=== PATIENT | male | born 1965 | race Caucasian/White ===

== ENCOUNTER 2022-06-30 12:32 | Inpatient (IN) ==
--- NOTE | 2022-06-30 14:58 | Emergency Department Note ---
Lower Extremity Injury HPI General Chief Complaint: Extremity Injury, Lower Stated Complaint: left foot Time Seen by Provider: 06/30/22 14:46 Source: patient Mode of arrival: ambulatory Limitations: no limitations History of Present Illness HPI Narrative: Narrative: 57-year-old male with a history of uncontrolled diabetes, diabetic neuropathy, diabetic foot ulcers presents the ER to be evaluated for possible osteomyelitis. Dr. Canchola has been evaluating for the past week or 2. He had him on doxycycline and Keflex but the patient did not pick it up for a week. He has been taking it for approximately a week since and has not had any significant improvement. It grew out a staph Enterococcus as well as Klebsiella that had significant resistance. It is susceptible to Rocephin. He has been seen by the wound clinic. He is concerned he needs an MRI to rule out osteomyelitis. Patient denies fever, chills, body aches, nausea or vomiting. There is been no weeping from the wound. Related Data Home Medications Medication Instructions Recorded Confirmed glucagon (human recombinant) 1 mg 1 mg IM ONCE 06/29/19 10/29/20 solution for injection torsemide 20 mg tablet 20 mg PO QDAY 08/20/20 10/29/20 albuterol sulfate 90 mcg/actuation 2 puff inhalation TID 09/27/20 10/29/20 aerosol inhaler (Ventolin HFA) allopurinol 100 mg tablet 100 mg PO BID 09/27/20 10/29/20 aspirin 81 mg tablet,delayed 81 mg PO QDAY 09/27/20 10/29/20 release (Adult Aspirin Regimen) canagliflozin 50 mg-metformin 1 tab PO BID 09/27/20 10/29/20 1,000 mg tablet (Invokamet) insulin glargine U-300 conc 300 See Rx Instructions subcut QDAY 09/27/20 10/29/20 unit/mL (3 mL) subcutaneous pen (Toujeo Max U-300 SoloStar) levothyroxine 75 mcg tablet 75 mcg PO QAM 09/27/20 10/29/20 (Euthyrox) atorvastatin 20 mg tablet 20 mg PO QDAY 10/29/20 10/29/20 cholecalciferol (vitamin D3) 25 50 mcg PO QDAY 10/29/20 10/29/20 mcg (1,000 unit) capsule hydralazine 10 mg tablet 10 mg PO BID 10/29/20 10/29/20 Previous Rx's Medication Instructions Recorded gemfibrozil 600 mg tablet 600 mg PO BID #60 tabs 12/26/19 insulin detemir U-100 100 unit/mL 120 unit (1.2 mL) subcut QAM 12/26/19 (3 mL) subcutaneous pen diabetes #15 mL divalproex 500 mg tablet,extended See Rx Instructions .Route 06/10/20 release 24 hr .COMPLEX #60 ea duloxetine 30 mg capsule,delayed See Rx Instructions .Route 06/10/20 release .COMPLEX #60 ea losartan 100 mg tablet See Rx Instructions .Route 07/10/20 .COMPLEX #30 tabs amlodipine 10 mg tablet See Rx Instructions .Route 10/04/20 .COMPLEX #30 tabs fenofibrate 54 mg tablet 54 mg PO QDAY #90 tabs 10/28/20 Humalog KwikPen Insulin 100 See Rx Instructions .Route 11/18/20 unit/mL subcutaneous (insulin .COMPLEX #15 mL lispro) semaglutide 1 mg/dose (2 mg/1.5 1 mg (0.75 mL) subcut QWEEK #1.5 mL 02/17/21 mL) subcutaneous pen injector (Ozempic) clindamycin HCl 150 mg capsule 450 mg PO TID #90 caps 06/13/21 Allergies Allergy/AdvReac Type Severity Reaction Status Date / Time lisinopril Allergy Unknown DEVIN Cough Verified 10/29/20 15:04 Review of Systems ROS ROS Narrative: Narrative: All systems ED: reviewed and negative except as stated. [facility] Narrative Patient History Narrative: Narrative: Medical/Surgical/Family History All Active Problems (Updated 06/30/22 @ 17:54 by Jg Lujan PA-C) Cellulitis and abscess of foot (Acute) Fasciitis (Acute) Diabetic foot ulcer (Acute) Chronic renal insufficiency (Chronic) Obstructive sleep apnea (Chronic) GERD (gastroesophageal reflux disease) (Acute) Charcot foot due to diabetes mellitus (Chronic) CKD stage 3 due to type 2 diabetes mellitus (Acute) History of fracture of left ankle (Chronic ~04/2019) History of knee surgery (Chronic) Heart murmur (Chronic) Seizures (Chronic) Headache (Chronic) Arthritis (Chronic) Erectile dysfunction (Chronic) Hypothyroidism (Chronic) Acute chest pain (Chronic) Situational depression (Chronic) Encounter for long-term (current) use of insulin (Chronic) Severe obstructive sleep apnea (Chronic) Cough (Chronic) Type 2 diabetes mellitus treated with insulin (Chronic) Vasovagal syncope (Chronic) Other fracture of left lower leg, initial encounter for closed fracture (Chronic) Microalbuminuria (Chronic) Knee effusion, right (Acute) Ori-Schlatter's disease of right lower extremity (Acute) Acute internal derangement of knee (Acute) Ankle fracture, left (Acute) Hypertensive renal disease (Chronic) Chronic kidney disease, stage II (mild) (Chronic) Proteinuria (Chronic) No pertinent past surgical history (Acute) URI (upper respiratory infection) (Chronic) Depression (Chronic) Epilepsy (Chronic) Enlarged kidney (Chronic) Hyperlipidemia (Chronic 12/06/14) Seizure disorder (Chronic 12/06/14) Gout (Chronic 12/06/14) Diabetes mellitus (Chronic 12/06/14) Hypertension (Chronic 12/06/14) Medical History Acute chest pain Acute internal derangement of knee Arthritis Charcot foot due to diabetes mellitus Dr Malik managing Chronic kidney disease, stage II (mild) most recent s.creat is 1.38 which equals to egfr of 58ml/min per MDRD equation a little worse this visit He has significant proteinuria His renal US shows enlarged kidneys work up negative as above His renal disease is likely sec to DM type 2(this is uncontrolled with sec complications and diabetic kidney disease can cause enlarged kidneys) labs discussed discused imp of optimal HTN and DM type 2 control to prevent declining renal function discussed low sodium diet and diabetic diet avoid frequent use of NSAIDS ct losartan for antiproteinuric and renal protective effect Chronic renal insufficiency CKD stage 3 due to type [address] Santana managing Cough Depression Diabetes mellitus (12/06/14) dietary and lifestyle interventions discussed Encounter for long-term (current) use of insulin Enlarged kidney Epilepsy Erectile dysfunction Gout (12/06/14) Headache Heart murmur Hyperlipidemia (12/06/14) Hypertension (12/06/14) Hypertensive renal disease BP at home ct current medications follow low sodium diet keep a BP log goal BP is less than 140/90 per recent ADA guidelines work on weight loss Hypothyroidism Knee effusion, right Microalbuminuria Obstructive sleep apnea Enders-Schlatter's disease of right lower extremity Other fracture of left lower leg, initial encounter for closed fracture Seizure disorder (12/06/14) Seizures Severe obstructive sleep apnea Situational depression Type 2 diabetes mellitus treated with insulin URI (upper respiratory infection) Vasovagal syncope Surgical History History of fracture of left ankle (~04/2019) [address] Blankenship History of knee surgery torn ACL 15 years ago No pertinent past surgical history Family History Mother Diabetes mellitus Father Liver cancer Prostate cancer Thyroid disorder Grandfather HTN (hypertension) Maternal Stroke Maternal Heart disease maternal Cancer Paternal Social History Alcohol Intake Frequency: holiday/special occasion only Substance Use: does not use and other (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 Sclerae non icteric HENMT: Normocephalic Atraumatic head, external nose and ears. Moist MM. CVS: +S1/S2, No murmurs or gallops. Radial pulses 2+ and equal bilat. No s welling RESP: Unlabored respiratory effort . Clear to auscultation bilaterally (CTAB). No noted wheezes rales or ronchi. MSK: Patient has a diabetic foot ulcer on the lateral aspect of the sole of his left foot approximately three quarters of a centimeter in diameter, he has multiple lesions across his toes. He has significant swelling. The foot ulcer is eroded significantly into the soft tissue there is no exposed bone at this time but is heading that way. Patient is good cap refill and DP and PT are 2+. Patient has poor sensation due to the neuropathy. Patient's exam is consistent with cellulitis, diabetic foot ulcer with concern for osteomyelitis. Skin: Warm, Dry . Swelling of the lower extremities. Cap refill less than 2. Psych: Awake, Alert, & Oriented (AAO) x3. Appropriate mood and affect . I see no General Limitations: no limitations Course Vital Signs Vital signs: Vital Signs Temperature 97.7 F 06/30/22 12:33 Pulse Rate 98 H 06/30/22 12:33 Respiratory Rate 18 06/30/22 12:33 Blood Pressure 156/83 06/30/22 12:33 Pulse Oximetry (%) 98 06/30/22 12:33 Oxygen Delivery Method 06/30/22 12:33 Temperature 97.7 F 06/30/22 12:33 Pulse Rate 98 H 06/30/22 12:33 Respiratory Rate 18 06/30/22 12:33 Blood Pressure 156/83 06/30/22 12:33 Pulse Oximetry (%) 98 06/30/22 12:33 Oxygen Delivery Method 06/30/22 12:33 MDM MDM Narrative Medical decision making narrative: Narrative: Patient has concern for osteomyelitis. He has diabetic foot ulcer, poorly controlled diabetes. He will be evaluated with a CBC, CMP, ESR, CRP and a CG 4. An MRI with contrast will be ordered of his foot. CBC: Unremarkable CMP: Glucose 341 creatinine of 1.4 otherwise unremarkable ESR: 19 Normal CRP: normal CG 4: Lactate normal, unremarkable MRI:IMPRESSION: No evidence of acute osteomyelitis. Cortical and trabecular sclerosis the fifth metatarsal base corresponding with sclerosis seen on plain film which likely indicate an old fracture or old healed osteomyelitis. Diffuse fasciitis and cellulitis. Two ganglion cysts in the dorsal soft tissues overlying the lateral cuneiform: 16 mm and 7 mm respectively. Interpreted and Authenticated by: David Luna 06/30/22 Patient had concerning history for osteomyelitis. Dr De La Garza sent the patient here for further evaluation. He has diabetic foot ulcer has grown out Klebsiella oxytoca, Enterococcus faecalis and Staph aureus. The Klebsiella is susceptible to ceftriaxone. Patient has been on Keflex and doxycycline. He has not been improving with outpatient therapy. Dr. De La Garza was concerned for patient declining. Patient does have normal ESR and CRP. MRI does show no evidence of osteomyelitis however there is diffuse fasciitis and cellulitis that is failed outpatient therapy. Patient will be given a dose of Rocephin at this time. Dr Baldwin hospitalist will be consulted for admission. Dr Baldwin: wants to touch base with wound healing. If they have no concerns consulting on he is gladly willing to accept Dr. Grossman was glad to consult on with the patient and evaluated the patient the emergency room he spoke with Dr Baldwin regarding this. Lab Data Result diagrams: 06/30/22 14:59 06/30/22 14:59 Labs: Lab Results 06/30/22 06/30/22 06/30/22 Range/Units 14:59 14:59 15:10 WBC 7.9 (4.5-11.0) K/mcL RBC 4.53 L (4.63-6.08) M/mcL Hgb 13.2 L (13.7-17.5) g/dL Hct 38.5 L (40.1-51.0) % MCV 85.0 (80.0-100.0) fL MCH 29.1 (26.0-34.0) pg MCHC 34.3 (31.0-36.0) g/dL RDW 12.8 (11.5-14.5) % Plt Count 251 (140-440) K/mcL MPV 10.3 (7.4-10.4) fL Immature Gran % (Auto) 3.8 H (0.0-0.5) % Neut % (Auto) 56.6 (38.0-78.0) % Lymph % (Auto) 27.8 (15.5-49.0) % [place] % (Auto) 9.0 (1.0-12.0) % Eos % (Auto) 2.3 (0.0-7.0) % Baso % (Auto) 0.5 (0.0-2.0) % Lymph # (Auto) 2.20 (1.50-4.80) K/mcL [place] # (Auto) 0.71 (0.10-0.90) K/mcL Eos # (Auto) 0.18 (0.00-0.70) K/mcL Baso # (Auto) 0.04 (0.00-0.30) K/mcL Immature Gran # 0.30 H (0.00-0.05) K/mcl Absolute Neutrophils 4.47 (1.80-8.00) K/mcL ESR 19 (0-20) mm/hr POC VBG pH 7.44 H (7.32-7.42) POC VBG pCO2 at Temp 44.3 (41-51) POC VBG pO2 31 (25-40) POC VBG HCO3 30.2 H (24-28) POC VBG Total CO2 32.0 H (25-29) POC Venous O2 Sat 61.0 (40-70) POC VBG Base Excess 6.0 H* (-2-2) VBG Lactic Acid 1.5 (0.5-2) Sodium 136 (133-145) mmol/L Potassium 4.1 (3.3-5.1) mmol/L Chloride 98 (96-108) mmol/L Carbon Dioxide 28 (22-30) mmol/L Anion Gap 10.0 (8.0-16.0) BUN 18 (6-20) mg/dL Creatinine 1.4 H (0.7-1.2) mg/dL GFR Calculation 56 Glucose 341 H (70-105) mg/dL Calcium 8.8 (8.6-10.4) mg/dL Total Bilirubin 0.3 (0.1-1.0) mg/dL AST 38 (<40) U/L ALT 33 (<40) U/L Alkaline Phosphatase 91 (39-117) U/L C-Reactive Protein 0.40 (0.03-0.80) mg/dL Total Protein 5.4 L (5.9-8.4) gm/dL Albumin 3.0 L (3.2-5.2) gm/dL Globulin 2.4 (2.2-3.7) gm/dL Albumin/Globulin Ratio 1.3 (1.0-2.3) Discharge Plan Patient/Caregiver Discharge Instructions Pt seen by MARRIAGE AND FAMILY SOCIAL WORKER/PA only: Yes Clinical Impression: Fasciitis, Diabetic foot ulcer Patient Disposition: Xfer As Inpt ([facility]) Follow up with: Andrés De La Garza MD [Primary Care Provider] - Prescriptions: No Action gemfibrozil 600 mg tablet 600 mg PO BID Qty: 60 2RF insulin detemir U-100 100 unit/mL (3 mL) insulin pen 120 unit SUB-Q QAM Qty: 15 6RF divalproex 500 mg tablet extended release 24 hr See Rx Instructions .ROUTE .COMPLEX Qty: 60 3RF Dose Instruction: Take 1 tablet by mouth twice daily Rx Instructions: Take 1 tablet by mouth twice daily duloxetine 30 mg capsule,delayed release(DR/EC) See Rx Instructions .ROUTE .COMPLEX Qty: 60 3RF Dose Instruction: Take 2 capsules by mouth once daily Rx Instructions: Take 2 capsules by mouth once daily losartan 100 mg tablet See Rx Instructions .ROUTE .COMPLEX Qty: 30 3RF Dose Instruction: Take 1 tablet by mouth once daily Rx Instructions: Take 1 tablet by mouth once daily amlodipine 10 mg tablet See Rx Instructions .ROUTE .COMPLEX Qty: 30 3RF Dose Instruction: Take 1 tablet by mouth once daily Rx Instructions: Take 1 tablet by mouth once daily fenofibrate 54 mg tablet 54 mg PO QDAY Qty: 90 1RF insulin lispro [Humalog KwikPen Insulin] 100 unit/mL insulin pen See Rx Instructions .ROUTE .COMPLEX Qty: 15 3RF Dose Instruction: INJECT 30 UNITS SUBCUTANEOUSLY THREE TIMES DAILY FOR DIABETES Rx Instructions: INJECT 30 UNITS SUBCUTANEOUSLY THREE TIMES DAILY FOR DIABETES semaglutide 1 mg/dose (2 mg/1.5 mL) subcutaneous pen injector 1 mg/dose (2 mg/1.5 mL) pen injector 1 mg SUB-Q QWEEK Qty: 1.5 3RF torsemide 20 mg tablet 20 mg PO QDAY glucagon (human recombinant) 1 mg recon soln 1 mg IM ONCE allopurinol 100 mg tablet 100 mg PO BID aspirin [Adult Aspirin Regimen] 81 mg tablet,delayed release (DR/EC) 81 mg PO QDAY levothyroxine [Euthyrox] 75 mcg tablet 75 mcg PO QAM Invokamet 50-1,000 mg tablet 1 tab PO BID Toujeo Max U-300 SoloStar 300 unit/mL (3 mL) insulin pen See Rx Instructions SUB-Q QDAY Rx Instructions: 120 units subcut daily; albuterol sulfate [Ventolin HFA] 90 mcg/actuation HFA aerosol inhaler 2 puff INHALATION TID cholecalciferol (vitamin D3) 25 mcg (1,000 unit) capsule 50 mcg PO QDAY atorvastatin 20 mg tablet 20 mg PO QDAY hydralazine 10 mg tablet 10 mg PO BID clindamycin HCl 150 mg capsule 450 mg PO TID Qty: 90 0RF
[2022-06-30 15:50] LABS: Basophils # (Auto) 0.04 K/mcL (0.00-0.30); Basophils % (Auto) 0.5 % (0.0-2.0); Eosinophils # (Auto) 0.18 K/mcL (0.00-0.70); Eosinophils % (Auto) 2.3 % (0.0-7.0); Hematocrit 38.5 % (40.1-51.0); Hemoglobin 13.2 g/dL (13.7-17.5); Lymphocytes % (Auto) 27.8 % (15.5-49.0); Mean Corpuscular HGB Conc 34.3 g/dL (31.0-36.0); Mean Platelet Volume 10.3 fL (7.4-10.4); Monocytes # (Auto) 0.71 K/mcL (0.10-0.90); Neutrophils % (Auto) 56.6 % (38.0-78.0); Platelet Count 251 K/mcL (140-440); RBC 4.53 M/mcL (4.63-6.08); Red Cell Distribution Width 12.8 % (11.5-14.5); WBC 7.9 K/mcL (4.5-11.0)
[2022-06-30 16:00] LABS: Erythrocyte Sedimentation Rate 19 mm/hr (0-20)
[2022-06-30 16:19] LABS: ALT/SGPT 33 U/L (<40); AST/SGOT 38 U/L (<40); Albumin/Globulin Ratio 1.3 (1.0-2.3); Alkaline Phosphatase 91 U/L (39-117); Bilirubin,Total 0.3 mg/dL (0.1-1.0); Blood Urea Nitrogen 18 mg/dL (6-20); Calcium 8.8 mg/dL (8.6-10.4); Carbon Dioxide 28 mmol/L (22-30); Chloride 98 mmol/L (96-108); Globulin 2.4 gm/dL (2.2-3.7); Glomerular Filtration Rate 56; Glucose 341 mg/dL (70-105)
--- NOTE | 2022-06-30 16:47 | Magnetic Resonance Report ---
CLINICAL INFORMATION: Diabetic foot ulcer base of the fifth metatarsal. Evaluate for osteomyelitis COMPARISON: Plain film 06/16/2022 TECHNIQUE: Coronal proton density, axial T1 and T2 proton density sagittal T1 proton density images were acquired. FINDINGS: Plain films show cortical thickening and vague increased density in the intramedullary bone within the proximal fifth metatarsal diaphysis. MRI, there is low signal sclerosis in this region but no acute intramedullary inflammation. Suspect this may represent old united fracture or old healed osteomyelitis. There is no evidence of an intramedullary marrow signal increase throughout the foot that would suggest osteomyelitis. Two cystic lesions 15 and 7 mm seen in the dorsal soft tissues overlying the lateral cuneiform. These likely represent ganglion cysts. Moderate diffuse soft tissue swelling and increased signal in the subcutaneous fat and fascial likely indicate cellulitis and fasciitis. Moderate pes planus noted. Surgical hardware from ankle fusion largely obscures ankle mortise and surrounding soft tissues. Increased signal in the talocalcaneal joint which could indicate inflammation. Tendons and ligaments appear unremarkable. IMPRESSION: No evidence of acute osteomyelitis. Cortical and trabecular sclerosis the fifth metatarsal base corresponding with sclerosis seen on plain film which likely indicate an old fracture or old healed osteomyelitis. Diffuse fasciitis and cellulitis. Two ganglion cysts in the dorsal soft tissues overlying the lateral cuneiform: 16 mm and 7 mm respectively. Interpreted and Authenticated by: David Luna 06/30/22
[2022-06-30] MEDS ORDERED: cefTRIAXone 1 GM VIAL IV ONE (17:09)
--- NOTE | 2022-06-30 18:06 | Internal Med History&Physical ---
HPI History of Present Illness Patient information: Note initiated : 06/30/22 at 6:00 pm Service Date, if different from initiated Date: [] Patient: Jose Alfredo Hernández 57 y/o M admitted on for left foot. Chief Complaint: [] History of present illness: Mr. Hernández is a 57 year old M Presents to the ED by his primary care doctor Dr. De La Garza. Patient has wound to the outside of his left foot. He says that showed up several weeks ago. Has been on antibiotics but has not improved. He was seen by Dr. Rodriguez a week ago. And he saw Dr. De La Garza today who sent him into the ED worried about needing surgical debridement or possibly osteo-. Work-up in the ED did not show any osteo on the MRI but did show diffuse cellulitis and fasciitis. Dr. Rodriguez was contacted to evaluate the patient morning. Patient has mild tachycardia in the 90s but vitals are otherwise normal. Patient denies fever chills. Per ER provider the patient's wound cultures have grown staph Enterococcus and Klebsiella with some resistance, I do not have those reports this time. Blood sugars were elevated on admission at 341 Review of Systems: Pertinent positives as above. Denies headache/fever/chills/nausea/vomiting/chest or abdominal pain/cough/dyspnea/diarrhea. Remaining 10 point review of system reviewed negative PFSH PFSH All Active Problems (Updated 06/30/22 @ 17:54 by Jg Lujan PA-C) Cellulitis and abscess of foot (Acute) Fasciitis (Acute) Diabetic foot ulcer (Acute) Chronic renal insufficiency (Chronic) Obstructive sleep apnea (Chronic) GERD (gastroesophageal reflux disease) (Acute) Charcot foot due to diabetes mellitus (Chronic) CKD stage 3 due to type 2 diabetes mellitus (Acute) History of fracture of left ankle (Chronic ~04/2019) History of knee surgery (Chronic) Heart murmur (Chronic) Seizures (Chronic) Headache (Chronic) Arthritis (Chronic) Erectile dysfunction (Chronic) Hypothyroidism (Chronic) Acute chest pain (Chronic) Situational depression (Chronic) Encounter for long-term (current) use of insulin (Chronic) Severe obstructive sleep apnea (Chronic) Cough (Chronic) Type 2 diabetes mellitus treated with insulin (Chronic) Vasovagal syncope (Chronic) Other fracture of left lower leg, initial encounter for closed fracture (Chronic) Microalbuminuria (Chronic) Knee effusion, right (Acute) [place]-Schlatter's disease of right lower extremity (Acute) Acute internal derangement of knee (Acute) Ankle fracture, left (Acute) Hypertensive renal disease (Chronic) Chronic kidney disease, stage II (mild) (Chronic) Proteinuria (Chronic) No pertinent past surgical history (Acute) URI (upper respiratory infection) (Chronic) Depression (Chronic) Epilepsy (Chronic) Enlarged kidney (Chronic) Hyperlipidemia (Chronic 12/06/14) Seizure disorder (Chronic 12/06/14) Gout (Chronic 12/06/14) Diabetes mellitus (Chronic 12/06/14) Hypertension (Chronic 12/06/14) Medical History Acute chest pain Acute internal derangement of knee Arthritis Charcot foot due to diabetes mellitus Dr Malik managing Chronic kidney disease, stage II (mild) most recent s.creat is 1.38 which equals to egfr of 58ml/min per MDRD equation a little worse this visit He has significant proteinuria His renal US shows enlarged kidneys work up negative as above His renal disease is likely sec to DM type 2(this is uncontrolled with sec complications and diabetic kidney disease can cause enlarged kidneys) labs discussed discused imp of optimal HTN and DM type 2 control to prevent declining renal function discussed low sodium diet and diabetic diet avoid frequent use of NSAIDS ct losartan for antiproteinuric and renal protective effect Chronic renal insufficiency CKD stage 3 due to type [address] Santana managing Cough Depression Diabetes mellitus (12/06/14) dietary and lifestyle interventions discussed Encounter for long-term (current) use of insulin Enlarged kidney Epilepsy Erectile dysfunction Gout (12/06/14) Headache Heart murmur Hyperlipidemia (12/06/14) Hypertension (12/06/14) Hypertensive renal disease BP at home ct current medications follow low sodium diet keep a BP log goal BP is less than 140/90 per recent ADA guidelines work on weight loss Hypothyroidism Knee effusion, right Microalbuminuria Obstructive sleep apnea Ori-Schlatter's disease of right lower extremity Other fracture of left lower leg, initial encounter for closed fracture Seizure disorder (12/06/14) Seizures Severe obstructive sleep apnea Situational depression Type 2 diabetes mellitus treated with insulin URI (upper respiratory infection) Vasovagal syncope Surgical History History of fracture of left ankle (~04/2019) [address] Blankenship History of knee surgery torn ACL 15 years ago No pertinent past surgical history Family History Mother Diabetes mellitus Father Liver cancer Prostate cancer Thyroid disorder Grandfather HTN (hypertension) Maternal Stroke Maternal Heart disease maternal Cancer Paternal Social History household members: alone lives independently: Yes marital status: single occupational status: employed occupation: [employer] leisure activities: hunting, fishing and other physical activity: none alcohol intake frequency: holiday/special occasion only substance use type: does not use 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.) MEDS/ALLERGIES Home Medications and Allergies Home Medications Medication Instructions Recorded Confirmed Type glucagon (human recombinant) 1 mg 1 mg IM ONCE 06/29/19 10/29/20 History solution for injection gemfibrozil 600 mg tablet 600 mg PO BID #60 tabs 12/26/19 10/29/20 Rx insulin detemir U-100 100 unit/mL 120 unit (1.2 mL) subcut QAM 12/26/19 10/29/20 Rx (3 mL) subcutaneous pen diabetes #15 mL divalproex 500 mg tablet,extended See Rx Instructions .Route 06/10/20 10/29/20 Rx release 24 hr .COMPLEX #60 ea duloxetine 30 mg capsule,delayed See Rx Instructions .Route 06/10/20 10/29/20 Rx release .COMPLEX #60 ea losartan 100 mg tablet See Rx Instructions .Route 07/10/20 10/29/20 Rx .COMPLEX #30 tabs torsemide 20 mg tablet 20 mg PO QDAY 08/20/20 10/29/20 History albuterol sulfate 90 mcg/actuation 2 puff inhalation TID 09/27/20 10/29/20 History aerosol inhaler (Ventolin HFA) allopurinol 100 mg tablet 100 mg PO BID 09/27/20 10/29/20 History aspirin 81 mg tablet,delayed 81 mg PO QDAY 09/27/20 10/29/20 History release (Adult Aspirin Regimen) canagliflozin 50 mg-metformin 1 tab PO BID 09/27/20 10/29/20 History 1,000 mg tablet (Invokamet) insulin glargine U-300 conc 300 See Rx Instructions subcut QDAY 09/27/20 10/29/20 History unit/mL (3 mL) subcutaneous pen (Toujeo Max U-300 SoloStar) levothyroxine 75 mcg tablet 75 mcg PO QAM 09/27/20 10/29/20 History (Euthyrox) amlodipine 10 mg tablet See Rx Instructions .Route 10/04/20 10/29/20 Rx .COMPLEX #30 tabs fenofibrate 54 mg tablet 54 mg PO QDAY #90 tabs 10/28/20 10/29/20 Rx atorvastatin 20 mg tablet 20 mg PO QDAY 10/29/20 10/29/20 History cholecalciferol (vitamin D3) 25 50 mcg PO QDAY 10/29/20 10/29/20 History mcg (1,000 unit) capsule hydralazine 10 mg tablet 10 mg PO BID 10/29/20 10/29/20 History Humalog KwikPen Insulin 100 See Rx Instructions .Route 11/18/20 Rx unit/mL subcutaneous (insulin .COMPLEX #15 mL lispro) semaglutide 1 mg/dose (2 mg/1.5 1 mg (0.75 mL) subcut QWEEK #1.5 mL 02/17/21 Rx mL) subcutaneous pen injector (Ozempic) clindamycin HCl 150 mg capsule 450 mg PO TID #90 caps 06/13/21 Rx Allergies Allergy/AdvReac Type Severity Reaction Status Date / Time lisinopril Allergy Unknown DEVIN Cough Verified 10/29/20 15:04 EXAM Constitutional Vitals: Temp Pulse Resp BP Pulse Ox O2 Del Method 97.7 F 98 H 18 156/83 98 06/30/22 12:33 06/30/22 12:33 06/30/22 12:33 06/30/22 12:33 06/30/22 12:33 06/30/22 12:33 Exam: General: Alert, Awake, No acute Distress, obese Eyes/N/T: EOMI, PERRL, Head/Neck: neck supple, normocephalic atraumatic CV: RRR, No murmurs, normal s1/s2 Pulm: Clear b/l, no wheezing/rhonchi/rales Abd: soft, nontender, +BS x4 Ext: no clubbing/cyanosis, 2-3+ b/l LE edema. Left foot lateral aspect with ulcer with overlying callus with surrounding erythema tenderness and edema. Neuro: Alert, no focal deficits, moves all extremities, CN 2-12 grossly intact, symmetrical strength b/l upper/lower, sensations intact b/l upper/lower Skin: warm/dry DATA Data Completed and Pending Labs: Labs from last 24 hours 06/30/22 06/30/22 06/30/22 15:10 14:59 14:59 WBC 7.9 RBC 4.53 L Hgb 13.2 L Hct 38.5 L MCV 85.0 MCH 29.1 MCHC 34.3 RDW 12.8 Plt Count 251 MPV 10.3 Immature Gran % (Auto) 3.8 H Neut % (Auto) 56.6 Lymph % (Auto) 27.8 Taylor % (Auto) 9.0 Eos % (Auto) 2.3 Baso % (Auto) 0.5 Lymph # (Auto) 2.20 Taylor # (Auto) 0.71 Eos # (Auto) 0.18 Baso # (Auto) 0.04 Immature Gran # 0.30 H Absolute Neutrophils 4.47 ESR 19 POC VBG pH 7.44 H POC VBG pCO2 at Temp 44.3 POC VBG pO2 31 POC VBG HCO3 30.2 H POC VBG Total CO2 32.0 H POC Venous O2 Sat 61.0 POC VBG Base Excess 6.0 H* VBG Lactic Acid 1.5 Sodium 136 Potassium 4.1 Chloride 98 Carbon Dioxide 28 Anion Gap 10.0 BUN 18 Creatinine 1.4 H GFR Calculation 56 Glucose 341 H Calcium 8.8 Total Bilirubin 0.3 AST 38 ALT 33 Alkaline Phosphatase 91 C-Reactive Protein 0.40 Total Protein 5.4 L Albumin 3.0 L Globulin 2.4 Albumin/Globulin Ratio 1.3 A/P Narrative A/P Narrative: A: *Left foot cellulitis: *DM w/ neuropathy and Charcot foot & hyperglycemia: *HTN: *BARRY: *Obesity: BMI 36 *Hypothyroidism: *CKD III: *? seizure disorder: Is on valproic acid but says another doctor recently told him he does not think he had seizures. *Depression: * P: -IV abx, MRSA screen -Wound culture records -Dr. Rodriguez consulted -Basal and SSI -A1c -Continue home ccb/arb -pt/ot -Home medication reconciliation -ppx: heparin Time Spent With Patient Time: Total time spent is greater than 50% in coordination of care (as documented) at patient's floor/unit and/or counseling patient:
[2022-06-30] MEDS ORDERED: MAGNESIUM SULFATE 2 GM/50 ML BAG IV PRN (19:30)
[2022-06-30] MEDS ORDERED: DEXTROSE 50% 50 ML VIAL IV PRN (19:30)
[2022-06-30] MEDS ORDERED: POLYETHYLENE GLYCOL 3350 17 GM PACKET PO PRN (19:30)
[2022-06-30] MEDS ORDERED: IPRATROPIUM/ALBUTEROL 3 ML AMPUL.NEB NEB PRN (19:30)
[2022-06-30] MEDS ORDERED: POTASSIUM CHLORIDE 20 MEQ TABLET PO PRN ×2 (19:30)
[2022-06-30] MEDS ORDERED: SENNOSIDES 1 TABLET PO PRN (19:30)
[2022-06-30] MEDS ORDERED: DEXTROSE 31 GM ORAL.SUSP PO PRN (19:30)
[2022-06-30] MEDS ORDERED: HYDROcodone/APAP 5/325MG TABLET PO PRN (19:30)
[2022-06-30] MEDS ORDERED: cefTRIAXone 2 GM in DEXTROSE 5% IN WATER 50 ML IV SCH (19:30)
[2022-06-30] MEDS ORDERED: POTASSIUM CHLORIDE 40 MEQ in DEXTROSE 5% IN WATER 500 ML IV PRN (19:30)
[2022-06-30] MEDS ORDERED: ONDANSETRON 4 MG/2 ML VIAL IV PRN (19:30)
[2022-06-30] MEDS ORDERED: ACETAMINOPHEN 325 MG TABLET PO PRN (19:30)
[2022-06-30] MEDS: hydrALAZINE 20 MG/ML VIAL IV PRN (20:01)
[2022-06-30] MEDS ORDERED: cefTRIAXone 1 GM VIAL ONE (20:06)
[2022-06-30] MEDS ORDERED: hydrALAZINE 20 MG/ML VIAL ONE (20:06)
[2022-06-30] MEDS: 0.9 % SODIUM CHLORIDE 10 ML SYRINGE IV SCH (20:13)
[2022-06-30] MEDS: INSULIN LISPRO 1 UNIT/0.01 ML UNIT SQ SCH (20:20)
[2022-06-30] MEDS ORDERED: INSULIN LISPRO 1 UNIT/0.01 ML UNIT SQ ONE (20:28)
[2022-06-30] MEDS: LABETALOL 5 MG/ML ML IV PRN (21:17)
[2022-06-30] MEDS: HEPARIN 5,000 UNIT/ML VIAL SQ SCH (22:49)
[2022-06-30 23:19] LABS: Hemoglobin A1C 13.2 % Hgb (4.0-6.0)
[2022-07-01] MEDS: LABETALOL 5 MG/ML ML IV PRN ×2 (04:12→07:50)
[2022-07-01] MEDS: 0.9 % SODIUM CHLORIDE 10 ML SYRINGE IV SCH ×3 (06:02→21:24)
[2022-07-01 06:17] LABS: Basophils # (Auto) 0.05 K/mcL (0.00-0.30); Basophils % (Auto) 0.6 % (0.0-2.0); Eosinophils # (Auto) 0.19 K/mcL (0.00-0.70); Eosinophils % (Auto) 2.5 % (0.0-7.0); Hemoglobin 13.2 g/dL (13.7-17.5); Lymphocytes # (Auto) 2.55 K/mcL (1.50-4.80); Lymphocytes % (Auto) 33.1 % (15.5-49.0); Mean Cell Volume 86.6 fL (80.0-100.0); Mean Platelet Volume 10.1 fL (7.4-10.4); Monocytes # (Auto) 0.72 K/mcL (0.10-0.90); Monocytes % (Auto) 9.3 % (1.0-12.0); Neutrophils % (Auto) 51.5 % (38.0-78.0); Platelet Count 244 K/mcL (140-440); RBC 4.62 M/mcL (4.63-6.08); Red Cell Distribution Width 12.9 % (11.5-14.5); WBC 7.7 K/mcL (4.5-11.0)
[2022-07-01] MEDS: INSULIN LISPRO 1 UNIT/0.01 ML UNIT SQ SCH ×4 (07:06→21:21)
[2022-07-01 07:17] LABS: ALT/SGPT 27 U/L (<40); AST/SGOT 25 U/L (<40); Albumin 2.7 gm/dL (3.2-5.2); Albumin/Globulin Ratio 0.9 (1.0-2.3); Alkaline Phosphatase 94 U/L (39-117); Bilirubin,Direct < 0.2 mg/dL (0-0.3); Bilirubin,Total 0.2 mg/dL (0.1-1.0); Blood Urea Nitrogen 15 mg/dL (6-20); Calcium 8.7 mg/dL (8.6-10.4); Carbon Dioxide 22 mmol/L (22-30); Chloride 99 mmol/L (96-108); Globulin 2.9 gm/dL (2.2-3.7); Glomerular Filtration Rate 61; Glucose 278 mg/dL (70-105); Lactate Dehydrogenase 257 U/L (135-225); Phosphorous 4.3 mg/dL (2.5-4.5); Triglycerides 472 mg/dL (<150); Uric Acid 6.1 mg/dL (2.5-8.0)
--- NOTE | 2022-07-01 07:48 | Internal Med Progress Note ---
SUBJECTIVE Subjective Patient information: Note initiated : 07/01/22 at 7:47 am Service Date, if different from initiated Date: [] Patient: Jose Alfredo Hernández 57 y/o M admitted on 06/30/22 for left foot. Chief Complaint: [] Interval history: History of present illness: Mr. Hernández is a 57 year old M Presents to the ED by his primary care doctor Dr. De La Garza. Patient has wound to the outside of his left foot. He says that showed up several weeks ago. Has been on antibiotics but has not improved. He was seen by Dr. Rodriguez a week ago. And he saw Dr. De La Garza today who sent him into the ED worried about needing surgical debridement or possibly osteo-. Work-up in the ED did not show any osteo on the MRI but did show diffuse cellulitis and fasciitis. Dr. Rodriguez was contacted to evaluate the patient morning. Patient has mild tachycardia in the 90s but vitals are otherwise normal. Patient denies fever chills. Per ER provider the patient's wound cultures have grown staph Enterococcus and Klebsiella with some resistance, I do not have those reports this time. Blood sugars were elevated on admission at 341 07/01 No overnight event or new complaints. Patient states that he sees an weight and test [facility] [place] [facility] who has him on Novolin 70/30 at 90 units [address] Rodriguez evaluation. Awaiting wound culture results from outpatient. Patient complains of edema in his arms and legs. Review of Systems: denies headache/fever/chills/nausea/vomiting/chest or abdominal pain/cough/dyspnea/diarrhea. Otherwise see above. Constitutional Vitals: Vital Signs Temp Pulse Resp BP Pulse Ox O2 Del Method 98.3 F 78 14 167/88 94 07/01/22 04:01 07/01/22 04:01 07/01/22 04:01 07/01/22 04:01 07/01/22 04:01 07/01/22 04:01 Period Temp Pulse Resp BP Sys/Medina Pulse Ox O2 Del Method O2 Flow Rate Last 24 Hr 97.7 F-98.6 F 66-98 14-18 154-185/83-102 94-98 Room Air-Room Air Intake and Output 06/30/22 07/01/22 07/01/22 21:59 05:59 13:59 Intake Total 1505 Output Total 1075 300 Balance 430 -300 Weight 137.937 kg Intake & Output: Intake & Output 06/30/22 07/01/22 07/01/22 21:59 05:59 13:59 Intake Total 1505 Output Total 1075 300 Balance 430 -300 Weight 137.937 kg Intake: Oral 1505 Output: Void Amount 1075 300 Other: Meal sandwich Percent of Meal Consumed 100% Feeding Ability Independent Urine Appearance Clear Urine Color Yellow Exam: General: Alert, Awake, No acute Distress, obese Eyes/N/T: EOMI Head/Neck: neck supple, CV: RRR, 2/6 SM Pulm: Clear b/l, no wheezing/rhonchi/rales Abd: soft, nontender, +BS x4 Ext: no clubbing/cyanosis, 2-3+ b/l LE edema. Left foot lateral aspect with ulcer with overlying callus with surrounding erythema tenderness and edema. Neuro: Alert, no focal deficits, moves all extremities, Skin: warm/dry OBJ DATA Labs CBC & Chem 7: 07/01/22 05:21 07/01/22 05:21 Labs: Abnormal Lab Results 07/01/22 07/01/22 06/30/22 05:21 05:21 15:10 RBC 4.62 L Hgb 13.2 L Hct 40.0 L Immature Gran % (Auto) 3.0 H Immature Gran # 0.23 H POC VBG pH 7.44 H POC VBG HCO3 30.2 H POC VBG Total CO2 32.0 H POC VBG Base Excess 6.0 H* Creatinine 1.3 H Glucose 278 H Hemoglobin A1c Lactate Dehydrogenase 257 H Total Protein 5.6 L Albumin 2.7 L Albumin/Globulin Ratio 0.9 L Triglycerides 472 H 06/30/22 06/30/22 06/30/22 14:59 14:59 14:59 RBC 4.53 L Hgb 13.2 L Hct 38.5 L Immature Gran % (Auto) 3.8 H Immature Gran # 0.30 H POC VBG pH POC VBG HCO3 POC VBG Total CO2 POC VBG Base Excess Creatinine 1.4 H Glucose 341 H Hemoglobin A1c 13.2 H Lactate Dehydrogenase Total Protein 5.4 L Albumin 3.0 L Albumin/Globulin Ratio Triglycerides Meds: Medications Acetaminophen (Acetaminophen 325 Mg Tablet) 650 mg PO Q6HP PRN; Protocol PRN Reason: Per Pain Protocol/Fever > 101 Hydrocodone Bitart/Acetaminophen (Hydrocodone/Apap 5/325mg Tablet) 1 tab PO Q4HP PRN PRN Reason: PAIN LEVEL 3-6 Albuterol/Ipratropium (Ipratropium/Albuterol 3 Ml Ampul.Neb) 3 ml NEB Q4HP PRN PRN Reason: Shortness Of Breath Dextrose (Dextrose 50% 50 Ml Vial) 0 ml IV UD PRN PRN Reason: Per Sliding Scale Diagnostic Test (Pha) (Accu-Chek 1 Each Strip) 1 each FS [facility] Last Admin: 07/01/22 07:05 Dose: 1 each Glucose (Dextrose 31 Gm Oral.Susp) 15 gm PO PRN PRN PRN Reason: Hypoglycemia Heparin Sodium (Porcine) (Heparin 5,000 Unit/Ml Vial) 5,000 unit SQ Q12 SHAUN Last Admin: 06/30/22 22:49 Dose: 5,000 unit Hydralazine HCl (Hydralazine 20 Mg/Ml Vial) 0 mg IV Q2HP PRN PRN Reason: Hypertension Last Admin: 06/30/22 20:01 Dose: 20 mg Potassium Chloride 40 meq/ (Dextrose) 520 mls @ 130 mls/hr IV UD PRN PRN Reason: Potassium < 3 Magnesium Sulfate (Magnesium Sulfate) 2 gm in 50 mls @ 50 mls/hr IV UD PRN PRN Reason: Magnesium </= 1.6 Ceftriaxone Sodium 2 gm/ (Dextrose) 50 mls @ 100 mls/hr IV Q24H [facility]; Protocol Insulin Human Lispro (Insulin Lispro 1 Unit/0.01 Ml Unit) 0 unit SQ [facility]; Protocol Last Admin: 07/01/22 07:06 Dose: 6 units Labetalol HCl (Labetalol 5 Mg/Ml Ml) 0 mg IV Q2HP PRN PRN Reason: Hypertension Last Admin: 07/01/22 04:12 Dose: 20 mg Ondansetron HCl (Ondansetron 4 Mg/2 Ml Vial) 4 mg IV Q4HP PRN PRN Reason: Nausea And Vomiting Polyethylene Glycol (Polyethylene Glycol 3350 17 Gm Packet) 17 gm PO DAILYP PRN PRN Reason: Constipation Potassium Chloride (Potassium Chloride 20 Meq Tablet) 40 meq PO UD PRN PRN Reason: Potssium is 3-3.5 Potassium Chloride (Potassium Chloride 20 Meq Tablet) 40 meq PO UD PRN PRN Reason: Potassium < 3 Senna (Sennosides 1 Tablet) 2 tab PO DAILYP PRN PRN Reason: Constipation Sodium Chloride (0.9 % Sodium Chloride 10 Ml Syringe) 10 ml IV Q8 SHAUN Last Admin: 07/01/22 06:02 Dose: 10 ml A/P Narrative A/P Narrative: A: *Left foot cellulitis/ulcer: *DM w/ neuropathy and Charcot foot & hyperglycemia: poorly controlled -A1c 13.2 *HTN: *BARRY: *Obesity: BMI 36 *Hypothyroidism: *CKD III: *? seizure disorder: Is on valproic acid but says another doctor recently told him he does not think he had seizures. *Depression: *GERD: *Hypertriglyceridemia: On fenofibrate and gemfibrozil *Peripheral edema: IV Lasix today and restart home torsemide, NERY's P: -Rocephin, MRSA screen neg -Wound culture records -Dr. 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
[2022-07-01] MEDS ORDERED: FUROSEMIDE 40 MG/4 ML VIAL IV ONE (09:06)
[2022-07-01] MEDS: HEPARIN 5,000 UNIT/ML VIAL SQ SCH ×2 (09:08→21:22)
[2022-07-01] MEDS: METOPROLOL SUCCINATE 50 MG TAB.XL.24H PO SCH (09:08)
[2022-07-01] MEDS: amLODIPine 10 MG TABLET PO SCH (09:09)
[2022-07-01] MEDS: ASPIRIN 81 MG TAB.CHEW PO SCH (09:09)
[2022-07-01] MEDS: FENOFIBRATE 43 MG CAPSULE PO SCH (09:09)
[2022-07-01] MEDS: ATORVASTATIN 20 MG TABLET PO SCH (09:09)
[2022-07-01] MEDS: LOSARTAN 50 MG TABLET PO SCH (09:09)
[2022-07-01] MEDS: DIVALPROEX SODIUM 250 MG TABLET PO SCH ×2 (09:09→21:22)
[2022-07-01] MEDS: FAMOTIDINE 20 MG TABLET PO SCH (09:10)
[2022-07-01] MEDS: hydrALAZINE 10 MG TABLET PO SCH ×2 (09:10→21:23)
[2022-07-01] MEDS: GEMFIBROZIL 600 MG TABLET PO SCH ×2 (09:10→21:23)
[2022-07-01] MEDS: TORSEMIDE 20 MG TABLET PO SCH (09:10)
[2022-07-01] MEDS: ALLOPURINOL 100 MG TABLET PO SCH ×2 (09:10→21:23)
[2022-07-01] MEDS: cefTRIAXone 2 GM in DEXTROSE 5% IN WATER 50 ML IV SCH (09:15)
[2022-07-01] MEDS: LEVOTHYROXINE 75 MCG TABLET PO SCH (09:15)
--- NOTE | 2022-07-01 10:28 | Orthopedic Consult Note ---
HPI Data of Consult Consult date: 07/01/22 Requesting physician: Marshall Baldwin Primary Care Provider: Jakub De La Garza Consult Narrative Patient Information: Note initiated : 07/01/22 at 10:25 am Service Date, if different from initiated Date: [] Patient: Jose Alfredo Hernández 57 y/o M admitted on 06/30/22 for Lt Foot diabetic ulcer. Chief Complaint: [left foot infection] Chief complaint: left foot infection Reason for consult: left foot infection cc:: CC: Marshall Baldwin PFSH PFSH All Active Problems (Updated 06/30/22 @ 17:54 by Jg Lujan PA-C) Cellulitis and abscess of foot (Acute) Fasciitis (Acute) Diabetic foot ulcer (Acute) Chronic renal insufficiency (Chronic) Obstructive sleep apnea (Chronic) GERD (gastroesophageal reflux disease) (Acute) Charcot foot due to diabetes mellitus (Chronic) CKD stage 3 due to type 2 diabetes mellitus (Acute) History of fracture of left ankle (Chronic ~04/2019) History of knee surgery (Chronic) Heart murmur (Chronic) Seizures (Chronic) Headache (Chronic) Arthritis (Chronic) Erectile dysfunction (Chronic) Hypothyroidism (Chronic) Acute chest pain (Chronic) Situational depression (Chronic) Encounter for long-term (current) use of insulin (Chronic) Severe obstructive sleep apnea (Chronic) Cough (Chronic) Type 2 diabetes mellitus treated with insulin (Chronic) Vasovagal syncope (Chronic) Other fracture of left lower leg, initial encounter for closed fracture (Chronic) Microalbuminuria (Chronic) Knee effusion, right (Acute) Whitwell-Schlatter's disease of right lower extremity (Acute) Acute internal derangement of knee (Acute) Ankle fracture, left (Acute) Hypertensive renal disease (Chronic) Chronic kidney disease, stage II (mild) (Chronic) Proteinuria (Chronic) No pertinent past surgical history (Acute) URI (upper respiratory infection) (Chronic) Depression (Chronic) Epilepsy (Chronic) Enlarged kidney (Chronic) Hyperlipidemia (Chronic 12/06/14) Seizure disorder (Chronic 12/06/14) Gout (Chronic 12/06/14) Diabetes mellitus (Chronic 12/06/14) Hypertension (Chronic 12/06/14) Medical History Acute chest pain Acute internal derangement of knee Arthritis Charcot foot due to diabetes mellitus Dr Malik managing Chronic kidney disease, stage II (mild) most recent s.creat is 1.38 which equals to egfr of 58ml/min per MDRD equation a little worse this visit He has significant proteinuria His renal US shows enlarged kidneys work up negative as above His renal disease is likely sec to DM type 2(this is uncontrolled with sec complications and diabetic kidney disease can cause enlarged kidneys) labs discussed discused imp of optimal HTN and DM type 2 control to prevent declining renal function discussed low sodium diet and diabetic diet avoid frequent use of NSAIDS ct losartan for antiproteinuric and renal protective effect Chronic renal insufficiency CKD stage 3 due to type [address] Santana managing Cough Depression Diabetes mellitus (12/06/14) dietary and lifestyle interventions discussed Encounter for long-term (current) use of insulin Enlarged kidney Epilepsy Erectile dysfunction Gout (12/06/14) Headache Heart murmur Hyperlipidemia (12/06/14) Hypertension (12/06/14) Hypertensive renal disease BP at home ct current medications follow low sodium diet keep a BP log goal BP is less than 140/90 per recent ADA guidelines work on weight loss Hypothyroidism Knee effusion, right Microalbuminuria Obstructive sleep apnea Ori-Schlatter's disease of right lower extremity Other fracture of left lower leg, initial encounter for closed fracture Seizure disorder (12/06/14) Seizures Severe obstructive sleep apnea Situational depression Type 2 diabetes mellitus treated with insulin URI (upper respiratory infection) Vasovagal syncope Surgical History History of fracture of left ankle (~04/2019) [address] Blankenship History of knee surgery torn ACL 15 years ago No pertinent past surgical history Family History Mother Diabetes mellitus Father Liver cancer Prostate cancer Thyroid disorder Grandfather HTN (hypertension) Maternal Stroke Maternal Heart disease maternal Cancer Paternal Social History household members: alone lives independently: Yes marital status: single 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 leisure activities: hunting, fishing and other physical activity: none smoking status: Never smoker alcohol intake frequency: holiday/special occasion only substance use type: does not use and 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.) MEDS/ALLERGIES Home Medications and Allergies Home Medications Medication Instructions Recorded Confirmed Type glucagon (human recombinant) 1 mg 1 mg IM ONCE 06/29/19 06/30/22 History solution for injection gemfibrozil 600 mg tablet 600 mg PO BID #60 tabs 12/26/19 06/30/22 Rx divalproex 500 mg tablet,extended See Rx Instructions .Route 06/10/20 06/30/22 Rx release 24 hr .COMPLEX #60 ea duloxetine 30 mg capsule,delayed See Rx Instructions .Route 06/10/20 06/30/22 Rx release .COMPLEX #60 ea losartan 100 mg tablet See Rx Instructions .Route 07/10/20 06/30/22 Rx .COMPLEX #30 tabs torsemide 20 mg tablet 20 mg PO QDAY 08/20/20 06/30/22 History allopurinol 100 mg tablet 100 mg PO BID 09/27/20 06/30/22 History aspirin 81 mg tablet,delayed 81 mg PO QDAY 09/27/20 06/30/22 History release (Adult Aspirin Regimen) levothyroxine 75 mcg tablet 75 mcg PO QAM 09/27/20 06/30/22 History (Euthyrox) amlodipine 10 mg tablet See Rx Instructions .Route 10/04/20 06/30/22 Rx .COMPLEX #30 tabs fenofibrate 54 mg tablet 54 mg PO QDAY #90 tabs 10/28/20 06/30/22 Rx atorvastatin 20 mg tablet 20 mg PO QDAY 10/29/20 06/30/22 History cholecalciferol (vitamin D3) 25 50 mcg PO QDAY 10/29/20 06/30/22 History mcg (1,000 unit) capsule hydralazine 10 mg tablet 10 mg PO BID 10/29/20 06/30/22 History Novolin 70-30 FlexPen U-100 See Rx Instructions .Route .COMPLEX 06/30/22 06/30/22 History clindamycin HCl 150 mg capsule 450 mg PO QID 06/30/22 06/30/22 History famotidine 40 mg tablet 1 tab PO QDAY heartburn 06/30/22 06/30/22 History icosapent ethyl 1 cap PO BID 06/30/22 06/30/22 History magnesium oxide 400 mg (241.3 mg 1 tab PO BID 06/30/22 06/30/22 History magnesium) tablet metoprolol succinate 100 mg 2 tab PO QDAY 06/30/22 06/30/22 History tablet,extended release 24 hr Allergies Allergy/AdvReac Type Severity Reaction Status Date / Time chlorhexidine Allergy Mild Rash Verified 06/30/22 20:33 [From [facility]] lisinopril AdvReac Mild DEVIN Cough Verified 06/30/22 20:33 Physical Examination Narrative Narrative: Narrative: Ankle & Foot left: Ankle appearance: other (Wound #2 Left Foot (mid) is an acute [place] Grade 1 Diabetic Ulcer and has received a status of Not Healed. Initial wound encounter measurements are 0.8cm length x 0.5cm width x 0.4cm depth, with an area of 0.4 sq cm and a volume of 0.16 cubic cm. No tunneling has been noted. No sinus tract) A/P Narrative A/P Narrative: left foot with recurring ulceration and history of infection Plan of Treatment: IV antibiotics MRI Xray Wound care follow-up outpatient Time Spent With Patient Time: Total time spent is greater than 50% in coordination of care (as documented) at patient's floor/unit and/or counseling patient: Total time spent with greater than 50% in coordination of care (as documented) at patient's floor/unit and/or counseling patient:: 25 - 35 minutes
[2022-07-01] MEDS: INSULIN, 75/25 NPL/LISPRO 1 UNIT/0.01 ML UNIT SQ SCH ×2 (11:29→17:13)
--- NOTE | 2022-07-01 12:39 | Discharge Summary ---
Discharge Provider Provider IMPORTANT FOLLOW-UP INFORMATION FOR PCP: Patient information: Note initiated : 07/01/22 at 12:37 pm Service Date, if different from initiated Date: [] Patient: Jose Alfredo Hernández 57 y/o M admitted on 06/30/22 for Lt Foot diabetic ulcer. Chief Complaint: [] Date of admission: 06/30/22 19:23 Discharge date: 07/03/22 Primary care physician: Jakub De La Garza Consults: 06/30/22 Consult to Physician [CONS] Stat Comment: Consulting Provider: Ivan Grossman Reason For Exam: Physician to Consult Consult to Physician [CONS] Stat Comment: Consulting Provider: Marshall Baldwin Reason For Exam: Physician to Consult 06/30/22 19:30 Consult to Physician [CONS] Routine Comment: Consulting Provider: Shakeel Rodriguez Reason For Exam: Physician to Consult COURSE Hospital Course Hospital course: History of present illness: Mr. Hernández is a 57 year old M Presents to the ED by his primary care doctor Dr. De La Garza. Patient has wound to the outside of his left foot. He says that showed up several weeks ago. Has been on antibiotics but has not improved. He was seen by Dr. Rodriguez a week ago. And he saw Dr. De La Garza today who sent him into the ED worried about needing surgical debridement or possibly osteo-. Work-up in the ED did not show any osteo on the MRI but did show diffuse cellulitis and fasciitis. Dr. Rodriguez was contacted to evaluate the patient morning. Patient has mild tachycardia in the 90s but vitals are otherwise normal. Patient denies fever chills. Per ER provider the patient's wound cultures have grown staph Enterococcus and Klebsiella with some resistance, I do not have those reports this time. Blood sugars were elevated on admission at 341 07/01 No overnight event or new complaints. Patient states that he sees an [facility] [place] [facility] who [place] him on Novolin 70/30 at 90 units [address] Rodriguez evaluation. Awaiting wound culture results from outpatient. Patient complains of edema in his arms and legs. 07/02 Home meds reconciled and starting his blood pressure medications as he has elevated blood pressure. No I&D per Dr. Rodriguez. But recommends IV antibiotics for least a week. No overnight event or new complaints. Outpatient wound culture results growing Klebsiella oxytocin and Enterococcus faecalis and MSSA 07/03 Doing well, no new complaints. Stable for discharge. Outpatient wound cultures show Klebsiella oxytocin, Enterococcus faecalis, and MSSA. Dr. Rodriguez recommends this patient receive IV antibiotics for a week if possible possibly oral after that. No I&D needed. Follow-up outpatient with Dr. Rodriguez A: *Left foot cellulitis/ulcer: *DM w/ neuropathy and Charcot foot & hyperglycemia: poorly controlled -A1c 13.2 *HTN: *BARRY: *Obesity: BMI 36 *Hypothyroidism: *CKD III: *? seizure disorder: Is on valproic acid but says another doctor recently told him he does not think he had seizures. *Depression: *GERD: *Hypertriglyceridemia: On fenofibrate and gemfibrozil *Peripheral edema: P: -Roceparabella, -Dr. Rodriguez who recommends patient receive IV antibiotics for a week if possible and possilby oral after that at. No I&D needed. -f/u with Dr. Rodriguez -f/u with warrant clerk Discharge diagnosis: Left foot cellulitis and ulcer diabetes Secondary discharge diagnosis: Obesity hypertension obstructive sleep apnea hypothyroidism chronic kidney disease depression GERD hypertriglyceridemia peripheral edema Time Spent with Patient Time attestation: Total time spent providing and/or coordinating discharge services: Time spent: Greater than 30 minutes EXAM Constitutional Vitals: Temp Pulse Resp BP Pulse Ox O2 Del Method 97.4 F 74 20 169/85 95 07/01/22 08:00 07/01/22 08:00 07/01/22 08:00 07/01/22 08:00 07/01/22 08:00 07/01/22 08:00 Discharge Data Data Completed and Pending Labs on day of discharge: Labs from last 24 hours 07/01/22 07/01/22 06/30/22 05:21 05:21 15:10 WBC 7.7 RBC 4.62 L Hgb 13.2 L Hct 40.0 L MCV 86.6 MCH 28.6 MCHC 33.0 RDW 12.9 Plt Count 244 MPV 10.1 Immature Gran % (Auto) 3.0 H Neut % (Auto) 51.5 Lymph % (Auto) 33.1 Bureau % (Auto) 9.3 Eos % (Auto) 2.5 Baso % (Auto) 0.6 Lymph # (Auto) 2.55 Bureau # (Auto) 0.72 Eos # (Auto) 0.19 Baso # (Auto) 0.05 Immature Gran # 0.23 H Absolute Neutrophils 3.97 ESR POC VBG pH 7.44 H POC VBG pCO2 at Temp 44.3 POC VBG pO2 31 POC VBG HCO3 30.2 H POC VBG Total CO2 32.0 H POC Venous O2 Sat 61.0 POC VBG Base Excess 6.0 H* VBG Lactic Acid 1.5 Sodium 135 Potassium 3.5 Chloride 99 Carbon Dioxide 22 Anion Gap 14.0 BUN 15 Creatinine 1.3 H GFR Calculation 61 Glucose 278 H Hemoglobin A1c Estim Average Glucose Uric Acid 6.1 Calcium 8.7 Phosphorus 4.3 Magnesium 1.8 Total Bilirubin 0.2 Direct Bilirubin < 0.2 GGT 33 AST 25 ALT 27 Alkaline Phosphatase 94 Lactate Dehydrogenase 257 H C-Reactive Protein Total Protein 5.6 L Albumin 2.7 L Globulin 2.9 Albumin/Globulin Ratio 0.9 L Triglycerides 472 H 06/30/22 06/30/22 06/30/22 14:59 14:59 14:59 WBC 7.9 RBC 4.53 L Hgb 13.2 L Hct 38.5 L MCV 85.0 MCH 29.1 MCHC 34.3 RDW 12.8 Plt Count 251 MPV 10.3 Immature Gran % (Auto) 3.8 H Neut % (Auto) 56.6 Lymph % (Auto) 27.8 Bureau % (Auto) 9.0 Eos % (Auto) 2.3 Baso % (Auto) 0.5 Lymph # (Auto) 2.20 Bureau # (Auto) 0.71 Eos # (Auto) 0.18 Baso # (Auto) 0.04 Immature Gran # 0.30 H Absolute Neutrophils 4.47 ESR 19 POC VBG pH POC VBG pCO2 at Temp POC VBG pO2 POC VBG HCO3 POC VBG Total CO2 POC Venous O2 Sat POC VBG Base Excess VBG Lactic Acid Sodium 136 Potassium 4.1 Chloride 98 Carbon Dioxide 28 Anion Gap 10.0 BUN 18 Creatinine 1.4 H GFR Calculation 56 Glucose 341 H Hemoglobin A1c 13.2 H Estim Average Glucose 332 Uric Acid Calcium 8.8 Phosphorus Magnesium Total Bilirubin 0.3 Direct Bilirubin GGT AST 38 ALT 33 Alkaline Phosphatase 91 Lactate Dehydrogenase C-Reactive Protein 0.40 Total Protein 5.4 L Albumin 3.0 L Globulin 2.4 Albumin/Globulin Ratio 1.3 Triglycerides Discharge Plan Patient/Caregiver Discharge Instructions Activity: increase activity as tolerated Diet: Consistent Carbohydrate Activity Restrictions/Additional Instructions: Diabetic wound to left lateral foot: Cleanse wound with normal saline. Cover wound with Exufiber Ag. Cover with gauze 4x4s and secure with kerlix and DEVIN. Change every 3 days. Do not return to work until follow up appointment with Dr. Rodriguez. Follow-up with your warrant clerk in 3 to 10 days for diabetes management. Prescriptions: New ceftriaxone 1 gram recon soln 1 g IV Q24H Qty: 6 0RF Rx Instructions: start 07/04/2022 Continued gemfibrozil 600 mg tablet 600 mg PO BID Qty: 60 2RF divalproex 500 mg tablet extended release 24 hr See Rx Instructions .ROUTE .COMPLEX Qty: 60 3RF Dose Instruction: Take 1 tablet by mouth twice daily Rx Instructions: Take 1 tablet by mouth twice daily duloxetine 30 mg capsule,delayed release(DR/EC) See Rx Instructions .ROUTE .COMPLEX Qty: 60 3RF Dose Instruction: Take 2 capsules by mouth once daily Rx Instructions: Take 2 capsules by mouth at HS losartan 100 mg tablet See Rx Instructions .ROUTE .COMPLEX Qty: 30 3RF Dose Instruction: Take 1 tablet by mouth once daily Rx Instructions: Take 1 tablet by mouth once daily amlodipine 10 mg tablet See Rx Instructions .ROUTE .COMPLEX Qty: 30 3RF Dose Instruction: Take 1 tablet by mouth once daily Rx Instructions: Take 1 tablet by mouth once daily fenofibrate 54 mg tablet 54 mg PO QDAY Qty: 90 1RF torsemide 20 mg tablet 20 mg PO QDAY glucagon (human recombinant) 1 mg recon soln 1 mg IM ONCE allopurinol 100 mg tablet 100 mg PO BID aspirin [Adult Aspirin Regimen] 81 mg tablet,delayed release (DR/EC) 81 mg PO QDAY levothyroxine [Euthyrox] 75 mcg tablet 75 mcg PO QAM cholecalciferol (vitamin D3) 25 mcg (1,000 unit) capsule 50 mcg PO QDAY Rx Instructions: 6,000units at night atorvastatin 20 mg tablet 20 mg PO QDAY hydralazine 10 mg tablet 10 mg PO BID famotidine 40 mg tablet 1 tab PO QDAY metoprolol succinate 100 mg tablet extended release 24 hr 2 tab PO QDAY magnesium oxide 400 mg (241.3 mg magnesium) tablet 1 tab PO BID icosapent ethyl 1 cap PO BID Novolin 70-30 FlexPen U-100 See Rx Instructions .ROUTE .COMPLEX Rx Instructions: sliding scale TID Discontinued clindamycin HCl 150 mg capsule 450 mg PO QID Follow Up Plan Follow up with: Andrés De La Garza MD [Primary Care Provider] - Shakeel Rodriguez DPM [Physician] - 07/08/22 11:20 am Patient Disposition: Home, Self-Care Rehab Potential: Fair Overall status at discharge: patient is progressing back to baseline Discharge Orders: Discharge Order (Routine); Ordered 07/03/22 Ordered By: Marshall Baldwin [facility] Deep Vein Thrombosis/Pulmonary Embolism Present on Admission: No
[2022-07-01] MEDS: DULoxetine 30 MG CAPSULE PO SCH (21:22)
[2022-07-02] MEDS: 0.9 % SODIUM CHLORIDE 10 ML SYRINGE IV SCH ×3 (06:50→20:30)
[2022-07-02] MEDS: LEVOTHYROXINE 75 MCG TABLET PO SCH (07:19)
[2022-07-02] MEDS: INSULIN, 75/25 NPL/LISPRO 1 UNIT/0.01 ML UNIT SQ SCH ×3 (07:19→17:01)
[2022-07-02] MEDS: INSULIN LISPRO 1 UNIT/0.01 ML UNIT SQ SCH (07:20)
--- NOTE | 2022-07-02 08:10 | Internal Med Progress Note ---
SUBJECTIVE Subjective Patient information: Note initiated : 07/02/22 at 8:07 am Service Date, if different from initiated Date: [] Patient: Jose Alfredo Hernández 57 y/o M admitted on 06/30/22 for Lt Foot diabetic ulcer. Chief Complaint: [] Interval history: History of present illness: Mr. Hernández is a 57 year old M Presents to the ED by his primary care doctor Dr. De La Garza. Patient has wound to the outside of his left foot. He says that showed up several weeks ago. Has been on antibiotics but has not improved. He was seen by Dr. Rodriguez a week ago. And he saw Dr. De La Garza today who sent him into the ED worried about needing surgical debridement or possibly osteo-. Work-up in the ED did not show any osteo on the MRI but did show diffuse cellulitis and fasciitis. Dr. Rodriguez was contacted to evaluate the patient morning. Patient has mild tachycardia in the 90s but vitals are otherwise normal. Patient denies fever chills. Per ER provider the patient's wound cultures have grown staph Enterococcus and Klebsiella with some resistance, I do not have those reports this time. Blood sugars were elevated on admission at 341 07/01 No overnight event or new complaints. Patient states that he sees an technical [place] him on Novolin 70/30 at 90 units [address] Rodriguez evaluation. Awaiting wound culture results from outpatient. Patient complains of edema in his arms and legs. 07/02 Home meds reconciled and starting his blood pressure medications as he has elevated blood pressure. No I&D per Dr. Rodriguez. But recommends IV antibiotics for least a week. No overnight event or new complaints. Outpatient wound culture results growing Klebsiella oxytocin and Enterococcus faecalis and MSSA Review of Systems: denies headache/fever/chills/nausea/vomiting/chest or abdominal pain/cough/dyspnea/diarrhea. Otherwise see above. Constitutional Vitals: Vital Signs Temp Pulse Resp BP Pulse Ox O2 Del Method 97.6 F 62 16 145/70 93 07/02/22 03:51 07/02/22 03:51 07/02/22 03:51 07/02/22 03:51 07/02/22 03:51 07/02/22 03:51 Period Temp Pulse Resp BP Sys/Medina Pulse Ox O2 Del Method O2 Flow Rate Last 24 Hr 97.6 F-98.4 F 62-76 16-20 145-183/70-92 93-97 Room Air-Room Air Intake and Output 07/01/22 07/02/22 07/02/22 21:59 05:59 13:59 Output Total 1650 650 800 Balance -1650 650 -800 Weight 133.039 kg Intake & Output: Intake & Output 07/01/22 07/02/22 07/02/22 21:59 05:59 13:59 Output Total 1650 650 800 Balance -1650 650 -800 Weight 133.039 kg Output: Void Amount 1650 650 800 Other: Urine Appearance Clear Clear Clear Urine Color Bright Yellow Yellow Yellow Urine Odor Normal Exam: General: Alert, Awake, No acute Distress, obese Eyes/N/T: EOMI Head/Neck: neck supple, CV: RRR, 2/6 SM Pulm: Clear b/l, no wheezing/rhonchi/rales Abd: soft, nontender, +BS x4 Ext: no clubbing/cyanosis, 2-3+ b/l LE edema. Left foot lateral aspect with ulcer with overlying callus with surrounding erythema tenderness and edema. Neuro: Alert, no focal deficits, moves all extremities, Skin: warm/dry OBJ DATA Labs CBC & Chem 7: 07/01/22 05:21 07/01/22 05:21 Labs: Abnormal Lab Results 07/01/22 07/01/22 06/30/22 05:21 05:21 15:10 RBC 4.62 L Hgb 13.2 L Hct 40.0 L Immature Gran % (Auto) 3.0 H Immature Gran # 0.23 H POC VBG pH 7.44 H POC VBG HCO3 30.2 H POC VBG Total CO2 32.0 H POC VBG Base Excess 6.0 H* Creatinine 1.3 H Glucose 278 H Hemoglobin A1c Lactate Dehydrogenase 257 H Total Protein 5.6 L Albumin 2.7 L Albumin/Globulin Ratio 0.9 L Triglycerides 472 H 06/30/22 06/30/22 06/30/22 14:59 14:59 14:59 RBC 4.53 L Hgb 13.2 L Hct 38.5 L Immature Gran % (Auto) 3.8 H Immature Gran # 0.30 H POC VBG pH POC VBG HCO3 POC VBG Total CO2 POC VBG Base Excess Creatinine 1.4 H Glucose 341 H Hemoglobin A1c 13.2 H Lactate Dehydrogenase Total Protein 5.4 L Albumin 3.0 L Albumin/Globulin Ratio Triglycerides Meds: Medications Acetaminophen (Acetaminophen 325 Mg Tablet) 650 mg PO Q6HP PRN; Protocol PRN Reason: Per Pain Protocol/Fever > 101 Hydrocodone Bitart/Acetaminophen (Hydrocodone/Apap 5/325mg Tablet) 1 tab PO Q4HP PRN PRN Reason: PAIN LEVEL 3-6 Albuterol/Ipratropium (Ipratropium/Albuterol 3 Ml Ampul.Neb) 3 ml NEB Q4HP PRN PRN Reason: Shortness Of Breath Allopurinol (Allopurinol 100 Mg Tablet) 100 mg PO BID [facility] Last Admin: 07/01/22 21:23 Dose: 100 mg Amlodipine Besylate (Amlodipine 10 Mg Tablet) 10 mg PO DAILY [facility] Last Admin: 07/01/22 09:09 Dose: 10 mg Aspirin (Aspirin 81 Mg Tab.Chew) 81 mg PO DAILY [facility] Last Admin: 07/01/22 09:09 Dose: 81 mg Atorvastatin Calcium (Atorvastatin 20 Mg Tablet) 20 mg PO QDAY [facility] Last Admin: 07/01/22 09:09 Dose: 20 mg Dextrose (Dextrose 50% 50 Ml Vial) 0 ml IV UD PRN PRN Reason: Per Sliding Scale Diagnostic Test (Pha) (Accu-Chek 1 Each Strip) 1 each FS ACHS [facility] Last Admin: 07/02/22 07:19 Dose: 1 each Divalproex Sodium (Divalproex Sodium 250 Mg Tablet) 500 mg PO BID [facility] Last Admin: 07/01/22 21:22 Dose: 500 mg Duloxetine HCl (Duloxetine 30 Mg Capsule) 60 mg PO HS [facility] Last Admin: 07/01/22 21:22 Dose: 60 mg Famotidine (Famotidine 20 Mg Tablet) 20 mg PO DAILY [facility] Last Admin: 07/01/22 09:10 Dose: 20 mg Fenofibrate (Fenofibrate 43 Mg Capsule) 43 mg PO DAILY [facility] Last Admin: 07/01/22 09:09 Dose: 43 mg Gemfibrozil (Gemfibrozil 600 Mg Tablet) 600 mg PO BID [facility] Last Admin: 07/01/22 21:23 Dose: 600 mg Glucose (Dextrose 31 Gm Oral.Susp) 15 gm PO PRN PRN PRN Reason: Hypoglycemia Heparin Sodium (Porcine) (Heparin 5,000 Unit/Ml Vial) 5,000 unit SQ Q12 [facility] Last Admin: 07/01/22 21:22 Dose: 5,000 unit Hydralazine HCl (Hydralazine 20 Mg/Ml Vial) 0 mg IV Q2HP PRN PRN Reason: Hypertension Last Admin: 06/30/22 20:01 Dose: 20 mg Hydralazine HCl (Hydralazine 10 Mg Tablet) 10 mg PO BID [facility] Last Admin: 07/01/22 21:23 Dose: 10 mg Potassium Chloride 40 meq/ (Dextrose) 520 mls @ 130 mls/hr IV UD PRN PRN Reason: Potassium < 3 Magnesium Sulfate (Magnesium Sulfate) 2 gm in 50 mls @ 50 mls/hr IV UD PRN PRN Reason: Magnesium </= 1.6 Ceftriaxone Sodium 2 gm/ (Dextrose) 50 mls @ 100 mls/hr IV Q24H [facility]; Protocol Last Infusion: 07/01/22 10:00 Dose: Infused Insulin Human Lispro (Insulin Lispro 1 Unit/0.01 Ml Unit) 0 unit SQ ACHS [facility]; Protocol Last Admin: 07/02/22 07:20 Dose: 6 units Insulin Lispro Protam/Lispro Human (Insulin, 75/25 Npl/Lispro 1 Unit/0.01 Ml Unit) 50 unit SQ TIDAC [facility] Last Admin: 07/02/22 07:19 Dose: 50 units Labetalol HCl (Labetalol 5 Mg/Ml Ml) 0 mg IV Q2HP PRN PRN Reason: Hypertension Last Admin: 07/01/22 07:50 Dose: 10 mg Levothyroxine Sodium (Levothyroxine 75 Mcg Tablet) 75 mcg PO ACB [facility] Last Admin: 07/02/22 07:19 Dose: 75 mcg Losartan Potassium (Losartan 50 Mg Tablet) 100 mg PO DAILY [facility] Last Admin: 07/01/22 09:09 Dose: 100 mg Metoprolol Succinate (Metoprolol Succinate 50 Mg Tab.Xl.24h) 200 mg PO DAILY [facility] Last Admin: 07/01/22 09:08 Dose: 200 mg Ondansetron HCl (Ondansetron 4 Mg/2 Ml Vial) 4 mg IV Q4HP PRN PRN Reason: Nausea And Vomiting Polyethylene Glycol (Polyethylene Glycol 3350 17 Gm Packet) 17 gm PO DAILYP PRN PRN Reason: Constipation Potassium Chloride (Potassium Chloride 20 Meq Tablet) 40 meq PO UD PRN PRN Reason: Potssium is 3-3.5 Last Admin: 07/01/22 09:15 Dose: 40 meq Potassium Chloride (Potassium Chloride 20 Meq Tablet) 40 meq PO UD PRN PRN Reason: Potassium < 3 Senna (Sennosides 1 Tablet) 2 tab PO DAILYP PRN PRN Reason: Constipation Sodium Chloride (0.9 % Sodium Chloride 10 Ml Syringe) 10 ml IV Q8 [facility] Last Admin: 07/02/22 06:50 Dose: Not Given Torsemide (Torsemide 20 Mg Tablet) 20 mg PO QDAY [facility] Last Admin: 07/01/22 09:10 Dose: 20 mg A/P Narrative A/P Narrative: A: *Left foot cellulitis/ulcer: -outpt WC growing Klebsiella oxytocin, Enterococcus faecalis, and MSSA *DM w/ neuropathy and Charcot foot & hyperglycemia: poorly controlled -A1c 13.2 *HTN: *BARRY: *Obesity: BMI 36 *Hypothyroidism: *CKD III: *? seizure disorder: Is on valproic acid but says another doctor recently told him he does not think he had seizures. *Depression: *GERD: *Hypertriglyceridemia: On fenofibrate and gemfibrozil *Peripheral edema: IV Lasix again today and started home torsemide, NERY's P: -Rocephin, MRSA screen neg -Dr. Rodriguez who recommends patient receive IV antibiotics for a week if possible & possibly oral after that. No I&D needed. -Follow-up outpatient with Dr. Rodriguez -Basal (titrate up) and SSI, f/u with technical sales engineer -Continue home ccb/hydralazine/arb/bb(clarify bp meds), prn IV -asa/statin -pt/ot -ppx: heparin / home h2 Time Spent With Patient Time: Total time spent is greater than 50% in coordination of care (as documented) at patient's floor/unit and/or counseling patient: Total time spent with greater than 50% in coordination of care (as documented) a t patient's floor/unit and/or counseling patient:: 25 - 35 minutes QUALITY VTE Deep Vein Thrombosis/Pulmonary Embolism Present on Admission: No
[2022-07-02] MEDS: DIVALPROEX SODIUM 250 MG TABLET PO SCH ×2 (08:32→20:27)
[2022-07-02] MEDS: hydrALAZINE 10 MG TABLET PO SCH ×2 (08:32→20:27)
[2022-07-02] MEDS: TORSEMIDE 20 MG TABLET PO SCH (08:32)
[2022-07-02] MEDS: METOPROLOL SUCCINATE 50 MG TAB.XL.24H PO SCH (08:32)
[2022-07-02] MEDS: ATORVASTATIN 20 MG TABLET PO SCH (08:33)
[2022-07-02] MEDS: HEPARIN 5,000 UNIT/ML VIAL SQ SCH ×2 (08:33→20:30)
[2022-07-02] MEDS: ALLOPURINOL 100 MG TABLET PO SCH ×2 (08:33→20:27)
[2022-07-02] MEDS: FAMOTIDINE 20 MG TABLET PO SCH (08:33)
[2022-07-02] MEDS: GEMFIBROZIL 600 MG TABLET PO SCH ×2 (08:33→20:27)
[2022-07-02] MEDS: FENOFIBRATE 43 MG CAPSULE PO SCH (08:33)
[2022-07-02] MEDS: ASPIRIN 81 MG TAB.CHEW PO SCH (08:33)
[2022-07-02] MEDS: LOSARTAN 50 MG TABLET PO SCH (08:33)
[2022-07-02] MEDS: amLODIPine 10 MG TABLET PO SCH (09:28)
[2022-07-02] MEDS: cefTRIAXone 2 GM in DEXTROSE 5% IN WATER 50 ML IV SCH (09:51)
[2022-07-02] MEDS ORDERED: FUROSEMIDE 20 MG/2 ML VIAL IV ONE (09:57)
[2022-07-02] MEDS ORDERED: ALBUMIN HUMAN 12.5 GM/50 ML BAG IV ONE (09:58)
[2022-07-02] MEDS: LABETALOL 5 MG/ML ML IV PRN (12:04)
[2022-07-02] MEDS: hydrALAZINE 20 MG/ML VIAL IV PRN ×3 (17:07→22:40)
[2022-07-02] MEDS: DULoxetine 30 MG CAPSULE PO SCH (20:27)
[2022-07-03] MEDS: 0.9 % SODIUM CHLORIDE 10 ML SYRINGE IV SCH ×2 (01:40→04:39)
[2022-07-03] MEDS: hydrALAZINE 20 MG/ML VIAL IV PRN (01:40)
[2022-07-03] MEDS: INSULIN, 75/25 NPL/LISPRO 1 UNIT/0.01 ML UNIT SQ SCH ×3 (07:17→11:56)
[2022-07-03] MEDS: LEVOTHYROXINE 75 MCG TABLET PO SCH (07:20)
[2022-07-03] MEDS: amLODIPine 10 MG TABLET PO SCH (08:22)
[2022-07-03] MEDS: GEMFIBROZIL 600 MG TABLET PO SCH (08:22)
[2022-07-03] MEDS: LOSARTAN 50 MG TABLET PO SCH (08:23)
[2022-07-03] MEDS: METOPROLOL SUCCINATE 50 MG TAB.XL.24H PO SCH (08:23)
[2022-07-03] MEDS: DIVALPROEX SODIUM 250 MG TABLET PO SCH (08:23)
[2022-07-03] MEDS: TORSEMIDE 20 MG TABLET PO SCH (08:24)
[2022-07-03] MEDS: ATORVASTATIN 20 MG TABLET PO SCH (08:24)
[2022-07-03] MEDS: FENOFIBRATE 43 MG CAPSULE PO SCH (08:24)
[2022-07-03] MEDS: FAMOTIDINE 20 MG TABLET PO SCH (08:24)
[2022-07-03] MEDS: hydrALAZINE 10 MG TABLET PO SCH (08:24)
[2022-07-03] MEDS: ALLOPURINOL 100 MG TABLET PO SCH (08:24)
[2022-07-03] MEDS: HEPARIN 5,000 UNIT/ML VIAL SQ SCH (08:24)
[2022-07-03] MEDS ORDERED: LORATADINE 10 MG TABLET PO SCH (09:00)
[2022-07-03] MEDS: cefTRIAXone 2 GM in DEXTROSE 5% IN WATER 50 ML IV SCH (09:52)
[2022-07-03] MEDS: ASPIRIN 81 MG TAB.CHEW PO SCH (10:33)
== END 2022-07-03 13:50 | disposition home or self-care (01) | DRG 603 ==
LOC: ED 12:32 → MEDSUR 19:23
PROVIDERS: ADMIT Internal Medicine; ATTEND Internal Medicine

== ENCOUNTER 2022-08-23 15:59 | Inpatient (IN) ==
[2022-08-23] MEDS ORDERED: IOPAMIDOL 100 ML BOTTLE IV ONE (16:00)
[2022-08-23] MEDS ORDERED: LIDOCAINE 1% 20 ML VIAL SQ ONE (16:00)
--- NOTE | 2022-08-23 16:08 | Emergency Department Note ---
HPI General Chief complaint: Fever Stated complaint: fever, decreased level of consciousness Time Seen by Provider: 08/23/22 16:08 Source: patient and EMS Mode of arrival: EMS Limitations: no limitations History of Present Illness HPI Narrative: Narrative: Patient is a 57-year-old male with a history of cellulitis and abscess, diabetic foot wound, CKD 3, headache, type 2 diabetes, hypertension, and hyperlipidemia who presents to the emergency department as a transfer from [facility] due to concern for potential osteomyelitis. Patient presented to [facility] due to somnolence. He was found to be febrile and tachycardic. He was given fluids and labs were performed. Patient's labs were unremarkable, but because there was concern for osteomyelitis we were called for transfer because they do not have a CT scanner. Upon presentation patient is somnolent but arousable. Patient's states that his symptoms started suddenly today after he went hunting. She states that he came home, and then became very tired. She states that he does have the diabetic foot wound, but that he was just evaluated and there were no concerns a couple of days ago. She denies any new symptoms otherwise. Related Data Home Medications Medication Instructions Recorded Confirmed glucagon (human recombinant) 1 mg 1 mg IM ONCE 06/29/19 06/30/22 solution for injection torsemide 20 mg tablet 20 mg PO QDAY 08/20/20 06/30/22 allopurinol 100 mg tablet 100 mg PO BID 09/27/20 06/30/22 aspirin 81 mg tablet,delayed 81 mg PO QDAY 09/27/20 06/30/22 release (Adult Aspirin Regimen) levothyroxine 75 mcg tablet 75 mcg PO QAM 09/27/20 06/30/22 (Euthyrox) atorvastatin 20 mg tablet 20 mg PO QDAY 10/29/20 06/30/22 cholecalciferol (vitamin D3) 25 50 mcg PO QDAY 10/29/20 06/30/22 mcg (1,000 unit) capsule hydralazine 10 mg tablet 10 mg PO BID 10/29/20 06/30/22 Novolin 70-30 FlexPen U-100 See Rx Instructions .Route .COMPLEX 06/30/22 0 06/30/22 famotidine 40 mg tablet 1 tab PO QDAY heartburn 06/30/22 06/30/22 icosapent ethyl 1 cap PO BID 06/30/22 06/30/22 magnesium oxide 400 mg (241.3 mg 1 tab PO BID 06/30/22 06/30/22 magnesium) tablet metoprolol succinate 100 mg 2 tab PO QDAY 06/30/22 06/30/22 tablet,extended release 24 hr Previous Rx's Medication Instructions Recorded gemfibrozil 600 mg tablet 600 mg PO BID #60 tabs 12/26/19 divalproex 500 mg tablet,extended See Rx Instructions .Route 06/10/20 release 24 hr .COMPLEX #60 ea duloxetine 30 mg capsule,delayed See Rx Instructions .Route 06/10/20 release .COMPLEX #60 ea losartan 100 mg tablet See Rx Instructions .Route 07/10/20 .COMPLEX #30 tabs amlodipine 10 mg tablet See Rx Instructions .Route 10/04/20 .COMPLEX #30 tabs fenofibrate 54 mg tablet 54 mg PO QDAY #90 tabs 10/28/20 ceftriaxone 1 gram intravenous 1 g IV Q24H #6 ea 07/03/22 solution Allergies Allergy/AdvReac Type Severity Reaction Status Date / Time chlorhexidine Allergy Mild Rash Verified 08/23/22 16:04 [facility] lisinopril AdvReac Mild DEVIN Cough Verified 08/23/22 16:04 Review of Systems ROS ROS Narrative: Narrative: Limitations: ROS unobtainable due to patients medical condition Constitutional: Denies fever or weakness Eyes: Denies eye pain or vision change ENT ED: Denies throat pain, hearing loss or rhinorrhea Cardiovascular: Denies chest pain, dyspnea on exertion, orthopnea or edema Respiratory: Denies shortness of breath or cough Gastrointestinal: Denies abdominal pain, nausea, vomiting, diarrhea, constipation, hematochezia or melena Genitourinary: Denies dysuria, frequency, hematuria or incontinence Musculoskeletal: Denies back pain or myalgia Integumentary: Denies rash or lesions Neurological: Denies headache, weakness, numbness, confusion, abnormal gait or dizziness Psychiatric: Denies anxiety, suicidal thoughts or homicidal thoughts Endocrine: Denies fatigue or polyuria Hematological/Lymphatic: Denies easy bleeding or easy bruising PFSH Narrative Patient History Narrative: Narrative: Medical/Surgical/Family History All Active Problems (Updated 06/30/22 @ 17:54 by Jg Lujan PA-C) Cellulitis and abscess of foot (Acute) Fasciitis (Acute) Diabetic foot ulcer (Acute) Chronic renal insufficiency (Chronic) Obstructive sleep apnea (Chronic) GERD (gastroesophageal reflux disease) (Acute) Charcot foot due to diabetes mellitus (Chronic) CKD stage 3 due to type 2 diabetes mellitus (Acute) History of fracture of left ankle (Chronic ~04/2019) History of knee surgery (Chronic) Heart murmur (Chronic) Seizures (Chronic) Headache (Chronic) Arthritis (Chronic) Erectile dysfunction (Chronic) Hypothyroidism (Chronic) Acute chest pain (Chronic) Situational depression (Chronic) Encounter for long-term (current) use of insulin (Chronic) Severe obstructive sleep apnea (Chronic) Cough (Chronic) Type 2 diabetes mellitus treated with insulin (Chronic) Vasovagal syncope (Chronic) Other fracture of left lower leg, initial encounter for closed fracture (Chroni c) Microalbuminuria (Chronic) Knee effusion, right (Acute) Ori-Schlatter's disease of right lower extremity (Acute) Acute internal derangement of knee (Acute) Ankle fracture, left (Acute) Hypertensive renal disease (Chronic) Chronic kidney disease, stage II (mild) (Chronic) Proteinuria (Chronic) No pertinent past surgical history (Acute) URI (upper respiratory infection) (Chronic) Depression (Chronic) Epilepsy (Chronic) Enlarged kidney (Chronic) Hyperlipidemia (Chronic 12/06/14) Seizure disorder (Chronic 12/06/14) Gout (Chronic 12/06/14) Diabetes mellitus (Chronic 12/06/14) Hypertension (Chronic 12/06/14) Medical History Acute chest pain Acute internal derangement of knee Arthritis Charcot foot due to diabetes mellitus Dr Malik managing Chronic kidney disease, stage II (mild) most recent s.creat is 1.38 which equals to egfr of 58ml/min per MDRD equation a little worse this visit He has significant proteinuria His renal US shows enlarged kidneys work up negative as above His renal disease is likely sec to DM type 2(this is uncontrolled with sec complications and diabetic kidney disease can cause enlarged kidneys) labs discussed discused imp of optimal HTN and DM type 2 control to prevent declining renal function discussed low sodium diet and diabetic diet avoid frequent use of NSAIDS ct losartan for antiproteinuric and renal protective effect Chronic renal insufficiency CKD stage 3 due to type [address] Santana managing Cough Depression Diabetes mellitus (12/06/14) dietary and lifestyle interventions discussed Encounter for long-term (current) use of insulin Enlarged kidney Epilepsy Erectile dysfunction Gout (12/06/14) Headache Heart murmur Hyperlipidemia (12/06/14) Hypertension (12/06/14) Hypertensive renal disease BP at home ct current medications follow low sodium diet keep a BP log goal BP is less than 140/90 per recent ADA guidelines work on weight loss Hypothyroidism Knee effusion, right Microalbuminuria Obstructive sleep apnea Ori-Schlatter's disease of right lower extremity Other fracture of left lower leg, initial encounter for closed fracture Seizure disorder (12/06/14) Seizures Severe obstructive sleep apnea Situational depression Type 2 diabetes mellitus treated with insulin URI (upper respiratory infection) Vasovagal syncope Surgical History History of fracture of left ankle (~04/2019) [address] Blankenship History of knee surgery torn ACL 15 years ago No pertinent past surgical history Family History Mother Diabetes mellitus Father Liver cancer Prostate cancer Thyroid disorder Grandfather HTN (hypertension) Maternal Stroke Maternal Heart disease maternal Cancer Paternal Social History Smoking Status: Never smoker Alcohol Intake Frequency: holiday/special occasion only Substance Use: does not use and 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 (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.) Exam Narrative Narrative: Narrative: General Limitations: no limitations General appearance: Present alert and sleepy; Absent anxious or appears intoxicated Head Head: Present atraumatic and normocephalic Eye Eye: Present PERRL and EOMI; Absent scleral icterus or nystagmus ENT ENT: Present mucous membranes moist; Absent nasal congestion Neck Neck: Present full ROM; Absent tenderness Chest Chest: Present normal inspection and symmetric chest wall rise; Absent tend erness Respiratory Respiratory: Present normal lung sounds bilaterally; Absent respiratory distress or accessory muscle use Cardiovascular Cardiovascular: Present regular rate, normal rhythm and normal heart sounds Adbominal Abdominal: Present soft and normal bowel sounds; Absent distention or tenderness Extremities Extremities: Present normal inspection, full ROM, pedal edema, pretibial edema and other (Foot wound seen on left foot on the lateral surface, minimal surrounding erythema, no drainage); Absent tenderness Back Back: Present normal inspection and full ROM Neurological Neurological: Present alert, CN II-XII intact, reflexes normal and other (Patient very somnolent, but arousable); Absent motor sensory deficit Psychiatric Psychiatric: Present normal affect and normal mood Skin Skin: Present warm (WNL), dry and normal color Course Vital Signs Vital signs: Vital Signs Temperature 104.1 F H 08/23/22 16:00 Pulse Rate 111 H 08/23/22 16:00 Respiratory Rate 20 08/23/22 16:00 Blood Pressure 134/76 08/23/22 16:00 Pulse Oximetry (%) 95 08/23/22 16:00 Oxygen Delivery Method 08/23/22 16:00 Temperature 104.1 F H 08/23/22 16:00 Pulse Rate 104 H 08/23/22 18:06 Respiratory Rate 20 08/23/22 16:00 Blood Pressure 105/71 08/23/22 18:01 Pulse Oximetry (%) 94 08/23/22 18:06 Oxygen Delivery Method 08/23/22 16:[address] [facility] MDM Narrative Medical decision making narrative: Narrative: Patient is a 57-year-old male who presents to the emergency department due to somnolence, tachycardia, and elevated temperature with concern for potential osteomyelitis. Osteomyelitis is possible, but unlikely given patient's systemic symptoms and absence of any findings on labs other than an elevated lactate. A CT scan has been ordered to evaluate for this. Due to patient's sudden and severe altered mental status and somnolence there is some concern for meningitis or encephalitis. A lumbar puncture is being performed by radiology. CSF labs are pending. Patient has been signed out to Dr. Foy. Lab Data Result diagrams: 08/23/22 16:15 Labs: Lab Results 08/23/22 08/23/22 08/23/22 Range/Units 16:15 16:15 16:42 WBC 10.8 (4.5-11.0) K/mcL RBC 4.90 (4.63-6.08) M/mcL Hgb 14.4 (13.7-17.5) g/dL Hct 41.5 (40.1-51.0) % POC Hct (41-55) MCV 84.7 (80.0-100.0) fL MCH 29.4 (26.0-34.0) pg MCHC 34.7 (31.0-36.0) g/dL RDW 12.9 (11.5-14.5) % Plt Count 202 (140-440) K/mcL MPV 10.4 (8.8-12.5) fL Immature Gran % (Auto) 0.7 H (0.0-0.5) % Neut % (Auto) 85.9 H (38.0-78.0) % Lymph % (Auto) 6.0 L (15.5-49.0) % [place] % (Auto) 6.9 (1.0-12.0) % Eos % (Auto) 0.1 (0.0-7.0) % Baso % (Auto) 0.4 (0.0-2.0) % Lymph # (Auto) 0.65 L (1.50-4.80) K/mcL [place] # (Auto) 0.75 (0.10-0.90) K/mcL Eos # (Auto) 0.01 (0.00-0.70) K/mcL Baso # (Auto) 0.04 (0.00-0.30) K/mcL Immature Gran # 0.08 H (0.00-0.05) K/mcl Absolute Neutrophils 9.27 H (1.80-8.00) K/mcL POC VBG pH 7.51 H (7.32-7.42) POC VBG pCO2 at Temp 29.7 L (41-51) POC VBG pO2 56 H (25-40) POC VBG HCO3 23.6 L (24-28) POC VBG Total CO2 24.0 L (25-29) POC Venous O2 Sat 92.0 H (40-70) POC VBG Base Excess 1.0 (-2-2) VBG Lactic Acid 2.1 H (0.5-2) POC Sodium (133-145) POC Potassium (3.3-5.1) POC Chloride (96-108) POC Total CO2 (22-30) POC BUN (6-20) POC Creatinine (0.6-1.2) POC Glucose (70-105) POC WB Ioniz Calcium (1.16-1.32) Procalcitonin 0.24 H (<0.10) ng/mL 08/23/22 Range/Units 16:43 WBC (4.5-11.0) K/mcL RBC (4.63-6.08) M/mcL Hgb (13.7-17.5) g/dL Hct (40.1-51.0) % POC Hct 39.0 L (41-55) MCV (80.0-100.0) fL MCH (26.0-34.0) pg MCHC (31.0-36.0) g/dL RDW (11.5-14.5) % Plt Count (140-440) K/mcL MPV (8.8-12.5) fL Immature Gran % (Auto) (0.0-0.5) % Neut % (Auto) (38.0-78.0) % Lymph % (Auto) (15.5-49.0) % [place] % (Auto) (1.0-12.0) % Eos % (Auto) (0.0-7.0) % Baso % (Auto) (0.0-2.0) % Lymph # (Auto) (1.50-4.80) K/mcL [place] # (Auto) (0.10-0.90) K/mcL Eos # (Auto) (0.00-0.70) K/mcL Baso # (Auto) (0.00-0.30) K/mcL Immature Gran # (0.00-0.05) K/mcl Absolute Neutrophils (1.80-8.00) K/mcL POC VBG pH (7.32-7.42) POC VBG pCO2 at Temp (41-51) POC VBG pO2 (25-40) POC VBG HCO3 (24-28) POC VBG Total CO2 (25-29) POC Venous O2 Sat (40-70) POC VBG Base Excess (-2-2) VBG Lactic Acid (0.5-2) POC Sodium 136 (133-145) POC Potassium 4.1 (3.3-5.1) POC Chloride 103 (96-108) POC Total CO2 23.0 (22-30) POC BUN 33 H (6-20) POC Creatinine 2.2 H (0.6-1.2) POC Glucose 235 H (70-105) POC WB Ioniz Calcium 1.11 L (1.16-1.32) Procalcitonin (<0.10) ng/mL Discharge Plan Patient/Caregiver Discharge Instructions Pt seen by BUSINESS FUNCTIONAL ANALYST/PA only: No Patient Disposition: Still a Patient Condition: Fair Follow up with: Andrés De La Garza MD [Primary Care Provider] - Prescriptions: No Action gemfibrozil 600 mg tablet 600 mg PO BID Qty: 60 2RF divalproex 500 mg tablet extended release 24 hr See Rx Instructions .ROUTE .COMPLEX Qty: 60 3RF Dose Instruction: Take 1 tablet by mouth twice daily Rx Instructions: Take 1 tablet by mouth twice daily duloxetine 30 mg capsule,delayed release(DR/EC) See Rx Instructions .ROUTE .COMPLEX Qty: 60 3RF Dose Instruction: Take 2 capsules by mouth once daily Rx Instructions: Take 2 capsules by mouth at HS losartan 100 mg tablet See Rx Instructions .ROUTE .COMPLEX Qty: 30 3RF Dose Instruction: Take 1 tablet by mouth once daily Rx Instructions: Take 1 tablet by mouth once daily amlodipine 10 mg tablet See Rx Instructions .ROUTE .COMPLEX Qty: 30 3RF Dose Instruction: Take 1 tablet by mouth once daily Rx Instructions: Take 1 tablet by mouth once daily fenofibrate 54 mg tablet 54 mg PO QDAY Qty: 90 1RF torsemide 20 mg tablet 20 mg PO QDAY glucagon (human recombinant) 1 mg recon soln 1 mg IM ONCE allopurinol 100 mg tablet 100 mg PO BID aspirin [Adult Aspirin Regimen] 81 mg tablet,delayed release (DR/EC) 81 mg PO QDAY levothyroxine [Euthyrox] 75 mcg tablet 75 mcg PO QAM cholecalciferol (vitamin D3) 25 mcg (1,000 unit) capsule 50 mcg PO QDAY Rx Instructions: 6,000units at night atorvastatin 20 mg tablet 20 mg PO QDAY hydralazine 10 mg tablet 10 mg PO BID famotidine 40 mg tablet 1 tab PO QDAY metoprolol succinate 100 mg tablet extended release 24 hr 2 tab PO QDAY magnesium oxide 400 mg (241.3 mg magnesium) tablet 1 tab PO BID icosapent ethyl 1 cap PO BID Novolin 70-30 FlexPen U-100 See Rx Instructions .ROUTE .COMPLEX Rx Instructions: sliding scale TID ceftriaxone 1 gram recon soln 1 g IV Q24H Qty: 6 0RF Rx Instructions: start 07/04/2022
[2022-08-23] MEDS ORDERED: IBUPROFEN 600 MG TABLET PO ONE (16:09)
[2022-08-23] MEDS ORDERED: PIPERACILLIN SODIUM/TAZOBACTAM 4.5 GM in DEXTROSE 5% IN WATER 50 ML IV ONE (16:09)
[2022-08-23] MEDS ORDERED: VANCOMYCIN 2,000 MG in 0.9 % SODIUM CHLORIDE 500 ML IV ONE (16:09)
[2022-08-23] MEDS ORDERED: LACTATED RINGERS 1,000 ML IV ONE (16:16)
[2022-08-23] MEDS ORDERED: PIPERACILLIN SODIUM/TAZOBACTAM 3.375 GM in DEXTROSE 5% IN WATER 50 ML IV ONE (16:45)
[2022-08-23 16:46] LABS: POC Calcium, Ionized 1.11 (1.16-1.32); POC Creatinine 2.2 (0.6-1.2); POC Potassium 4.1 (3.3-5.1)
[2022-08-23 17:05] LABS: Basophils # (Auto) 0.04 K/mcL (0.00-0.30); Basophils % (Auto) 0.4 % (0.0-2.0); Eosinophils # (Auto) 0.01 K/mcL (0.00-0.70); Eosinophils % (Auto) 0.1 % (0.0-7.0); Hematocrit 41.5 % (40.1-51.0); Hemoglobin 14.4 g/dL (13.7-17.5); Lymphocytes # (Auto) 0.65 K/mcL (1.50-4.80); Mean Cell Volume 84.7 fL (80.0-100.0); Mean Corpuscular HGB Conc 34.7 g/dL (31.0-36.0); Mean Platelet Volume 10.4 fL (8.8-12.5); Monocytes # (Auto) 0.75 K/mcL (0.10-0.90); Monocytes % (Auto) 6.9 % (1.0-12.0); Neutrophils % (Auto) 85.9 % (38.0-78.0); Platelet Count 202 K/mcL (140-440); Red Cell Distribution Width 12.9 % (11.5-14.5); WBC 10.8 K/mcL (4.5-11.0)
[2022-08-23] MEDS ORDERED: KETOROLAC 30 MG/ML VIAL IV ONE (17:06)
[2022-08-23] MEDS ORDERED: 0.9 % SODIUM CHLORIDE 2,535 ML IV ONE (19:01)
--- NOTE | 2022-08-23 19:03 | XRay Report ---
CLINICAL INFORMATION: Fever and decreased level consciousness and possible meningitis COMPARISON: None. TECHNIQUE: The procedure and risks including the possibility of bleeding, infection, and CSF leak requiring blood patch were explained to the patient. He understood and wished to proceed. Under fluoroscopic guidance, the L2-3 intralaminar space was marked, prepped and locally anesthetized with 1% Lidocaine using a 25 gauge needle. A 22 gauge spinal needle was advanced, under fluoroscopy, through the intralaminar space into the thecal sac. Approximately 3 cc of clear CSF was aspirated and sent to pathology for requested studies. There was no apparent complication. The patient tolerated procedure well. Total fluoroscopy time: One minute and five seconds IMPRESSION: Successful fluoroscopic guided lumbar puncture yielding 3 cc of clear CSF. No apparent complications. Interpreted and Authenticated by: David Luna 08/23/22
[2022-08-23 19:54] LABS: Appearance,CSF Clear; Nucleated Cells,CSF 4 /cumm (0-5); Red Blood Cell,CSF 7 /cumm (0-1)
[2022-08-23 20:02] LABS: Glucose,CSF 167 mg/dL (40-70)
--- NOTE | 2022-08-23 22:40 | Emergency Department Note ---
Course Course Course Narrative: I assumed care of patient at 1900 and pending results of imaging. Please refer to previous attending's note for treatment up to this point to include antibiotics. Patient had a lumbar puncture with the radiologist which revealed clear CSF fluid no active signs of infection. Patient had no meningeal signs were negative for present skin Kernig's on my exam. CT of the head was obtained with image reviewed myself with no acute findings. CT of the left lower extremity was obtained and was concerning for infected hardware as patient has had ankle surgery in the past with screw placement. There is also concern for osteomyelitis. Patient has ready been administered antibiotics. He does have a history of CHF and received 2 L of fluid at the outside facility so no fluids w ere started here in the ED. Case was discussed with on-call orthopedic surgeon who recommends a patient be admitted to the hospitalist service. Case was discussed with hospitalist who has agreed to admit the patient. Plan of care was discussed with the patient and his family and they expressed verbal understanding and agreement. Consultations Consultation #1: Discussed with orthopedic surgeon, Dr. Coombs, who recommends that patient be admitted to the hospitalist service and consult orthopedist or podiatry Time: 22:31 Consultation #2: Discussed with hospitalist, Dr. Bernal, who has graciously excepted patient to be admitted to the hospital. Time: 22:41 Vital Signs Vital signs: Vital Signs Temperature 104.1 F H 08/23/22 16:00 Pulse Rate 111 H 08/23/22 16:00 Respiratory Rate 20 08/23/22 16:00 Blood Pressure 134/76 08/23/22 16:00 Pulse Oximetry (%) 95 08/23/22 16:00 Oxygen Delivery Method 08/23/22 16:00 Temperature 99.3 F H 08/23/22 21:37 Pulse Rate 102 H 08/23/22 22:16 Respiratory Rate 20 08/23/22 16:00 Blood Pressure 159/82 08/23/22 22:16 Pulse Oximetry (%) 95 08/23/22 22:16 Oxygen Delivery Method 08/23/22 16:00 [facility] Narrative Medical decision making narrative: Narrative: Differential Diagnosis Differential Diagnosis: Osteomyelitis, sepsis, diabetic foot ulcer Medical Records Medical records reviewed: Yes I reviewed the patient's medical records. Lab Data Lab results reviewed: Yes I reviewed the patient's lab results. Result diagrams: 08/23/22 16:15 Labs: Lab Results 08/23/22 08/23/22 08/23/22 Range/Units 16:15 16:15 16:42 WBC 10.8 (4.5-11.0) K/mcL RBC 4.90 (4.63-6.08) M/mcL Hgb 14.4 (13.7-17.5) g/dL Hct 41.5 (40.1-51.0) % POC Hct (41-55) MCV 84.7 (80.0-100.0) fL MCH 29.4 (26.0-34.0) pg MCHC 34.7 (31.0-36.0) g/dL RDW 12.9 (11.5-14.5) % Plt Count 202 (140-440) K/mcL MPV 10.4 (8.8-12.5) fL Immature Gran % (Auto) 0.7 H (0.0-0.5) % Neut % (Auto) 85.9 H (38.0-78.0) % Lymph % (Auto) 6.0 L (15.5-49.0) % [place] % (Auto) 6.9 (1.0-12.0) % Eos % (Auto) 0.1 (0.0-7.0) % Baso % (Auto) 0.4 (0.0-2.0) % Lymph # (Auto) 0.65 L (1.50-4.80) K/mcL [place] # (Auto) 0.75 (0.10-0.90) K/mcL Eos # (Auto) 0.01 (0.00-0.70) K/mcL Baso # (Auto) 0.04 (0.00-0.30) K/mcL Immature Gran # 0.08 H (0.00-0.05) K/mcl Absolute Neutrophils 9.27 H (1.80-8.00) K/mcL POC VBG pH 7.51 H (7.32-7.42) POC VBG pCO2 at Temp 29.7 L (41-51) POC VBG pO2 56 H (25-40) POC VBG HCO3 23.6 L (24-28) POC VBG Total CO2 24.0 L (25-29) POC Venous O2 Sat 92.0 H (40-70) POC VBG Base Excess 1.0 (-2-2) VBG Lactic Acid 2.1 H (0.5-2) POC Sodium (133-145) POC Potassium (3.3-5.1) POC Chloride (96-108) POC Total CO2 (22-30) POC BUN (6-20) POC Creatinine (0.6-1.2) POC Glucose (70-105) POC WB Ioniz Calcium (1.16-1.32) Procalcitonin 0.24 H (<0.10) ng/mL CSF Source CSF Appearance CSF Color CSF RBC (0-1) /cumm CSF Diff Total Count CSF Total Nucleated Auto (0-5) /cumm CSF Neutrophils CSF Lymphocytes CSF Reactive Lymphs CSF Monocytes CSF Eosinophils % CSF Basophils CSF Plasma Cells CSF Diff Comment CSF Glucose (40-70) mg/dL 08/23/22 08/23/22 08/23/22 Range/Units 16:43 18:35 19:53 WBC (4.5-11.0) K/mcL RBC (4.63-6.08) M/mcL Hgb (13.7-17.5) g/dL Hct (40.1-51.0) % POC Hct 39.0 L (41-55) MCV (80.0-100.0) fL MCH (26.0-34.0) pg MCHC (31.0-36.0) g/dL RDW (11.5-14.5) % Plt Count (140-440) K/mcL MPV (8.8-12.5) fL Immature Gran % (Auto) (0.0-0.5) % Neut % (Auto) (38.0-78.0) % Lymph % (Auto) (15.5-49.0) % [place] % (Auto) (1.0-12.0) % Eos % (Auto) (0.0-7.0) % Baso % (Auto) (0.0-2.0) % Lymph # (Auto) (1.50-4.80) K/mcL [place] # (Auto) (0.10-0.90) K/mcL Eos # (Auto) (0.00-0.70) K/mcL Baso # (Auto) (0.00-0.30) K/mcL Immature Gran # (0.00-0.05) K/mcl Absolute Neutrophils (1.80-8.00) K/mcL POC VBG pH (7.32-7.42) POC VBG pCO2 at Temp (41-51) POC VBG pO2 (25-40) POC VBG HCO3 (24-28) POC VBG Total CO2 (25-29) POC Venous O2 Sat (40-70) POC VBG Base Excess (-2-2) VBG Lactic Acid 1.5 (0.5-2) POC Sodium 136 (133-145) POC Potassium 4.1 (3.3-5.1) POC Chloride 103 (96-108) POC Total CO2 23.0 (22-30) POC BUN 33 H (6-20) POC Creatinine 2.2 H (0.6-1.2) POC Glucose 235 H (70-105) POC WB Ioniz Calcium 1.11 L (1.16-1.32) Procalcitonin (<0.10) ng/mL CSF Source Tube 1 CSF Appearance Clear CSF Color Colorless CSF RBC 7 H (0-1) /cumm CSF Diff Total Count TNP CSF Total Nucleated Auto 4 (0-5) /cumm CSF Neutrophils TNP CSF Lymphocytes TNP CSF Reactive Lymphs TNP CSF Monocytes TNP CSF Eosinophils % TNP CSF Basophils TNP CSF Plasma Cells TNP CSF Diff Comment TNP CSF Glucose 167 H* (40-70) mg/dL Radiology Data Radiology results reviewed: Yes I reviewed the patient's radiology results. Radiology results narrative: CT of the left lower extremity obtained which was concerning for infected hardware in his left lower extremity and osteomyelitis. CT of the head obtained with image reviewed myself, no acute findings Discharge Plan Patient/Caregiver Discharge Instructions Pt seen by LAW TUTOR/PA only: No Clinical Impression: Leg osteomyelitis, left Sepsis Qualifiers: Sepsis type: sepsis due to unspecified organism Sepsis acute organ dysfunction status: with acute organ dysfunction Severe sepsis acute organ dysfunction type: encephalopathy Severe sepsis shock status: without septic shock Qualified Code(s): A41.9 - Sepsis, unspecified organism Infected hardware in left leg Qualifiers: Encounter type: initial encounter Qualified Code(s): T84.7XXA - Infection and inflammatory reaction due to other internal orthopedic prosthetic devices, implants and grafts, initial encounter Patient Disposition: Xfer As Outpt/Obs ([facility]) Condition: Fair Follow up with: Andrés De La Garza MD [Primary Care Provider] - Prescriptions: No Action gemfibrozil 600 mg tablet 600 mg PO BID Qty: 60 2RF divalproex 500 mg tablet extended release 24 hr See Rx Instructions .ROUTE .COMPLEX Qty: 60 3RF Dose Instruction: Take 1 tablet by mouth twice daily Rx Instructions: Take 1 tablet by mouth twice daily duloxetine 30 mg capsule,delayed release(DR/EC) See Rx Instructions .ROUTE .COMPLEX Qty: 60 3RF Dose Instruction: Take 2 capsules by mouth once daily Rx Instructions: Take 2 capsules by mouth at HS losartan 100 mg tablet See Rx Instructions .ROUTE .COMPLEX Qty: 30 3RF Dose Instruction: Take 1 tablet by mouth once daily Rx Instructions: Take 1 tablet by mouth once daily amlodipine 10 mg tablet See Rx Instructions .ROUTE .COMPLEX Qty: 30 3RF Dose Instruction: Take 1 tablet by mouth once daily Rx Instructions: Take 1 tablet by mouth once daily fenofibrate 54 mg tablet 54 mg PO QDAY Qty: 90 1RF torsemide 20 mg tablet 20 mg PO QDAY glucagon (human recombinant) 1 mg recon soln 1 mg IM ONCE allopurinol 100 mg tablet 100 mg PO BID aspirin [Adult Aspirin Regimen] 81 mg tablet,delayed release (DR/EC) 81 mg PO QDAY levothyroxine [Euthyrox] 75 mcg tablet 75 mcg PO QAM cholecalciferol (vitamin D3) 25 mcg (1,000 unit) capsule 50 mcg PO QDAY Rx Instructions: 6,000units at night atorvastatin 20 mg tablet 20 mg PO QDAY hydralazine 10 mg tablet 10 mg PO BID famotidine 40 mg tablet 1 tab PO QDAY metoprolol succinate 100 mg tablet extended release 24 hr 2 tab PO QDAY magnesium oxide 400 mg (241.3 mg magnesium) tablet 1 tab PO BID icosapent ethyl 1 cap PO BID Novolin 70-30 FlexPen U-100 See Rx Instructions .ROUTE .COMPLEX Rx Instructions: sliding scale TID ceftriaxone 1 gram recon soln 1 g IV Q24H Qty: 6 0RF Rx Instructions: start 07/04/2022
--- NOTE | 2022-08-23 22:54 | Internal Med History&Physical ---
HPI History of Present Illness Patient information: Note initiated : 08/23/22 at 10:47 pm Service Date, if different from initiated Date: [] Patient: Jose Alfredo Hernández 57 y/o M admitted on for fever, decreased level of consciousness. Chief Complaint: [] History of present illness: Mr. Hernández is a 57 year old male with a history of hypertension, hyperlipidemia, insulin dependent diabetes mellitus complicated by neuropathy and diabetic foot wounds, prior left tibiotalar joint arthrodesis , CKD stage 3, possible seizure disorder, BARRY and obesity who was sent to [facility] ED from the ED in [place] for concern for osteomyelitis. At the [facility] ED, the patient was noted to have a fluctuant, red and tender ulcer on the lateral aspect of his left foot. There is also a infected appearing wound top of a left toe. The patient was febrile and tachycardic in the emergency department. A CT of his left lower extremity with contrast showed changes in the left ankle arthrodesis area concerning for possible septic arthritis. The patient was started on broad-spectrum antibiotics. Hospital medicine was asked to admit the patient with orthopedic surgery consulted for operative repair. History was taken from the patient's at bedside as the patient is unable to provide a history due to altered mental status. Review of systems: Unable to obtain due to altered mental status. Physical exam Head: Atraumatic, normal inspection. Eyes: normal appearance, no scleral icterus. Neck: full ROM Respiratory: 2 L/min nasal cannula oxygen, no respiratory distress. Cardiovascular: normal rate and rhythm, S1, S2. GI/Abdominal: soft, nontender, no guarding. Extremities: Fluctuant red, tender ulcer on lateral aspect of left foot consistent with diabetic foot wound. Neurological: CN II-XII intact, intact motor, intact sensation. Psychiatric: normal mood. Skin: warm, normal color PFSH PFSH All Active Problems (Updated 08/23/22 @ 22:40 by Wilmer Foy DO) Cellulitis and abscess of foot (Acute) Fasciitis (Acute) Diabetic foot ulcer (Acute) Sepsis (Acute) Infected hardware in left leg (Acute) Leg osteomyelitis, left (Acute) Chronic renal insufficiency (Chronic) Obstructive sleep apnea (Chronic) GERD (gastroesophageal reflux disease) (Acute) Charcot foot due to diabetes mellitus (Chronic) CKD stage 3 due to type 2 diabetes mellitus (Acute) History of fracture of left ankle (Chronic ~04/2019) History of knee surgery (Chronic) Heart murmur (Chronic) Seizures (Chronic) Headache (Chronic) Arthritis (Chronic) Erectile dysfunction (Chronic) Hypothyroidism (Chronic) Acute chest pain (Chronic) Situational depression (Chronic) Encounter for long-term (current) use of insulin (Chronic) Severe obstructive sleep apnea (Chronic) Cough (Chronic) Type 2 diabetes mellitus treated with insulin (Chronic) Vasovagal syncope (Chronic) Other fracture of left lower leg, initial encounter for closed fracture (Chronic) Microalbuminuria (Chronic) Knee effusion, right (Acute) [place]-Schlatter's disease of right lower extremity (Acute) Acute internal derangement of knee (Acute) Ankle fracture, left (Acute) Hypertensive renal disease (Chronic) Chronic kidney disease, stage II (mild) (Chronic) Proteinuria (Chronic) No pertinent past surgical history (Acute) URI (upper respiratory infection) (Chronic) Depression (Chronic) Epilepsy (Chronic) Enlarged kidney (Chronic) Hyperlipidemia (Chronic 12/06/14) Seizure disorder (Chronic 12/06/14) Gout (Chronic 12/06/14) Diabetes mellitus (Chronic 12/06/14) Hypertension (Chronic 12/06/14) Medical History Acute chest pain Acute internal derangement of knee Arthritis Charcot foot due to diabetes mellitus Dr Malik managing Chronic kidney disease, stage II (mild) most recent s.creat is 1.38 which equals to egfr of 58ml/min per MDRD equation a little worse this visit He has significant proteinuria His renal US shows enlarged kidneys work up negative as above His renal disease is likely sec to DM type 2(this is uncontrolled with sec complications and diabetic kidney disease can cause enlarged kidneys) labs discussed discused imp of optimal HTN and DM type 2 control to prevent declining renal function discussed low sodium diet and diabetic diet avoid frequent use of NSAIDS ct losartan for antiproteinuric and renal protective effect Chronic renal insufficiency CKD stage 3 due to type [address] Santana managing Cough Depression Diabetes mellitus (12/06/14) dietary and lifestyle interventions discussed Encounter for long-term (current) use of insulin Enlarged kidney Epilepsy Erectile dysfunction Gout (12/06/14) Headache Heart murmur Hyperlipidemia (12/06/14) Hypertension (12/06/14) Hypertensive renal disease BP at home ct current medications follow low sodium diet keep a BP log goal BP is less than 140/90 per recent ADA guidelines work on weight loss Hypothyroidism Knee effusion, right Microalbuminuria Obstructive sleep apnea [place]-Schlatter's disease of right lower extremity Other fracture of left lower leg, initial encounter for closed fracture Seizure disorder (12/06/14) Seizures Severe obstructive sleep apnea Situational depression Type 2 diabetes mellitus treated with insulin URI (upper respiratory infection) Vasovagal syncope Surgical History History of fracture of left ankle (~04/2019) [address] Blankenship History of knee surgery torn ACL 15 years ago No pertinent past surgical history Family History Mother Diabetes mellitus Father Liver cancer Prostate cancer Thyroid disorder Grandfather HTN (hypertension) Maternal Stroke Maternal Heart disease maternal Cancer Paternal Social History household members: alone lives independently: Yes marital status: single occupational status: employed occupation: [employer] leisure activities: hunting, fishing and other physical activity: none smoking status: Never smoker and Smokeless tobacco alcohol intake frequency: holiday/special occasion only substance use type: does not use and 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.) MEDS/ALLERGIES Home Medications and Allergies Home Medications Medication Instructions Recorded Confirmed Type glucagon (human recombinant) 1 mg 1 mg IM PRN PRN Hypoglycemia 06/29/19 08/23/22 History solution for injection torsemide 20 mg tablet 20 mg PO QDAY 08/20/20 08/24/22 History allopurinol 100 mg tablet 100 mg PO BID 09/27/20 08/24/22 History aspirin 81 mg tablet,delayed 81 mg PO QDAY 09/27/20 08/24/22 History release (Adult Aspirin Regimen) levothyroxine 75 mcg tablet 75 mcg PO QAM 09/27/20 08/24/22 History (Euthyrox) atorvastatin 20 mg tablet 20 mg PO QDAY 10/29/20 08/24/22 History hydralazine 10 mg tablet 10 mg PO BID 10/29/20 08/24/22 History Novolin 70-30 FlexPen U-100 90 units subcut TID 06/30/22 08/24/22 History famotidine 40 mg tablet 1 tab PO QDAY heartburn 06/30/22 08/23/22 History magnesium oxide 400 mg (241.3 mg 1 tab PO BID 06/30/22 08/24/22 History magnesium) tablet metoprolol succinate 100 mg 2 tab PO QDAY 06/30/22 08/24/22 History tablet,extended release 24 hr albuterol sulfate 90 mcg/actuation 2 puff inhalation Q6H PRN 08/23/22 08/24/22 History aerosol inhaler (Ventolin HFA) Shortness Of Breath amlodipine 10 mg tablet 10 mg PO DAILY 08/23/22 08/24/22 History cholecalciferol (vitamin D3) 50 150 mcg PO QHS 08/23/22 08/24/22 History mcg (2,000 unit) tablet divalproex 500 mg tablet,extended 500 mg PO BID 08/23/22 08/24/22 History release 24 hr duloxetine 30 mg capsule,delayed 60 mg PO QHS 08/23/22 08/24/22 History release semaglutide 1 mg/dose (2 mg/1.5 1 mg subcut WEEKLY 08/23/22 08/24/22 History mL) subcutaneous pen injector (Ozempic) valsartan 160 mg tablet 1 tab PO DAILY 08/23/22 08/24/22 History Allergies Allergy/AdvReac Type Severity Reaction Status Date / Time chlorhexidine Allergy Mild Rash Verified 08/23/22 16:04 [From Hibiclens] lisinopril AdvReac Mild DEVIN Cough Verified 08/23/22 16:04 EXAM Constitutional Vitals: Temp Pulse Resp BP Pulse Ox O2 Del Method 99.3 F H 100 H 20 166/83 96 08/23/22 21:37 08/23/22 22:31 08/23/22 16:00 08/23/22 22:31 08/23/22 22:31 08/23/22 16:00 DATA Data Completed and Pending Labs: Labs from last 24 hours 08/23/22 08/23/22 08/23/22 19:53 18:35 16:43 WBC RBC Hgb Hct POC Hct 39.0 L MCV MCH MCHC RDW Plt Count MPV Immature Gran % (Auto) Neut % (Auto) Lymph % (Auto) Casey % (Auto) Eos % (Auto) Baso % (Auto) Lymph # (Auto) Casey # (Auto) Eos # (Auto) Baso # (Auto) Immature Gran # Absolute Neutrophils POC VBG pH POC VBG pCO2 at Temp POC VBG pO2 POC VBG HCO3 POC VBG Total CO2 POC Venous O2 Sat POC VBG Base Excess VBG Lactic Acid 1.5 POC Sodium 136 POC Potassium 4.1 POC Chloride 103 POC Total CO2 23.0 POC BUN 33 H POC Creatinine 2.2 H POC Glucose 235 H POC WB Ioniz Calcium 1.11 L Procalcitonin CSF Source Tube 1 CSF Appearance Clear CSF Color Colorless CSF RBC 7 H CSF Diff Total Count TNP CSF Total Nucleated Auto 4 CSF Neutrophils TNP CSF Lymphocytes TNP CSF Reactive Lymphs TNP CSF Monocytes TNP CSF Eosinophils % TNP CSF Basophils TNP CSF Plasma Cells TNP CSF Diff Comment TNP CSF Glucose 167 H* 08/23/22 08/23/22 08/23/22 16:42 16:15 16:15 WBC 10.8 RBC 4.90 Hgb 14.4 Hct 41.5 POC Hct MCV 84.7 MCH 29.4 MCHC 34.7 RDW 12.9 Plt Count 202 MPV 10.4 Immature Gran % (Auto) 0.7 H Neut % (Auto) 85.9 H Lymph % (Auto) 6.0 L Casey % (Auto) 6.9 Eos % (Auto) 0.1 Baso % (Auto) 0.4 Lymph # (Auto) 0.65 L Casey # (Auto) 0.75 Eos # (Auto) 0.01 Baso # (Auto) 0.04 Immature Gran # 0.08 H Absolute Neutrophils 9.27 H POC VBG pH 7.51 H POC VBG pCO2 at Temp 29.7 L POC VBG pO2 56 H POC VBG HCO3 23.6 L POC VBG Total CO2 24.0 L POC Venous O2 Sat 92.0 H POC VBG Base Excess 1.0 VBG Lactic Acid 2.1 H POC Sodium POC Potassium POC Chloride POC Total CO2 POC BUN POC Creatinine POC Glucose POC WB Ioniz Calcium Procalcitonin 0.24 H CSF Source CSF Appearance CSF Color CSF RBC CSF Diff Total Count CSF Total Nucleated Auto CSF Neutrophils CSF Lymphocytes CSF Reactive Lymphs CSF Monocytes CSF Eosinophils % CSF Basophils CSF Plasma Cells CSF Diff Comment CSF Glucose A/P Narrative A/P Narrative: Assessment: 57 year old male with a history of hypertension, hyperlipidemia, insulin dependent diabetes mellitus complicated by neuropathy and diabetic foot wounds, prior left tibiotalar joint arthrodesis , CKD stage 3, possible seizure disorder, BARRY and obesity who was sent to [facility] ED from the ED in [place] for concern for osteomyelitis. There was no CT scan capability there at the time. The patient is admitted to [facility] for possible ankle septic arthritis/osteomyelitis complicated by hardware involvement. Lactic acid was initially mildly elevated however returned to normal after IV fluid and antibiotics. #Severe sepsis probably due to ankle septic arthritis/osteomyelitis and concern for tibiotalar arthrodesis hardware involvement #Acute on chronic kidney disease stage 3 injury due to sepsis #Altered mental status due to sepsis #Acute hypoxic respiratory failure likely secondary to sepsis #Insulin dependent diabetes mellitus #Essential hypertension #Hyperlipidemia #History of diabetic foot wounds #Possible seizure disorder #Obstructive sleep apnea #Obesity BMI 34 Plan -Broad-spectrum antibiotic coverage with vancomycin IV, Cefepime, and Flagyl IV for now. -Follow blood cultures. -Check CRP level. -Chest x-ray. -Oxygen supplementation as needed. -IV fluid, monitor renal function and urine output. -Analgesics as needed, avoid NSAIDs. -Lantus 10 units HS and SSI-high dose for now. -Home medications reconciliation, continue important medications. -Orthopedic surgery consult. -NPO after midnight. -PT consult. -CPAP at bedtime -CODE STATUS: G[employer]anger Spent With Patient Time: Total time spent is greater than 50% in coordination of care (as documented) at patient's floor/unit and/or counseling patient:
[2022-08-23] MEDS ORDERED: DEXTROSE 50% 50 ML VIAL IV PRN (23:33)
[2022-08-23] MEDS ORDERED: DEXTROSE 31 GM ORAL.SUSP PO PRN (23:33)
[2022-08-23] MEDS ORDERED: VANCOMYCIN PER PHARMACY IV ONE (23:33)
[2022-08-23] MEDS ORDERED: CEFEPIME 1 GM VIAL ONE (23:47)
[2022-08-23] MEDS ORDERED: metroNIDAZOLE 100 ML IV ONE (23:48)
[2022-08-24] MEDS: metroNIDAZOLE 500 MG/100 ML BAG IV SCH ×4 (00:09→21:42)
[2022-08-24] MEDS: ACETAMINOPHEN 325 MG TABLET PO PRN ×3 (00:10→12:14)
[2022-08-24] MEDS: 0.9 % SODIUM CHLORIDE 1,000 ML IV SCH ×4 (00:10→19:31)
[2022-08-24] MEDS: CEFEPIME 2 GM VIAL IV SCH ×3 (00:10→21:44)
[2022-08-24] MEDS ORDERED: ACETAMINOPHEN 325 MG TABLET PO ONE ×2 (00:10→04:25)
[2022-08-24] MEDS: INSULIN GLARGINE, HUMAN 1 UNIT/0.01 ML SQ SCH ×2 (00:58→21:42)
[2022-08-24] MEDS ORDERED: INSULIN GLARGINE, HUMAN 1 UNIT/0.01 ML SQ ONE (01:09)
[2022-08-24] MEDS: 0.9 % SODIUM CHLORIDE 10 ML SYRINGE IV SCH ×4 (05:09→21:45)
--- NOTE | 2022-08-24 05:38 | Cat Scan Report ---
CLINICAL INFORMATION: Obtundation COMPARISON: Brain MRI 08/28/2008 TECHNIQUE: 2.5 mm helical slices were obtained in the skull base to vertex. Following reconstruction, axial reformatted images were reviewed at bone and parenchymal windows. The exam was performed using radiation dose optimization techniques including, but not limited to, automated exposure control, adjustment of the mA and/or kV according to patient size and use of iterative reconstruction technique. FINDINGS: Exam was performed after contrast was administered for a lower leg CT, thus there is mild residual enhancement of the vasculature and pial surfaces. The ventricles, sulci, fissures, and cisterns are normal in size and configuration. No extra-axial fluid collections are identified. Small remote lacunar infarct in the right cerebellar hemisphere seen as before. The cerebrum, brainstem and cerebellum are unremarkable. There is no evidence of hemorrhage, mass effect, or edema. Bone windows show no osseous abnormality. IMPRESSION: Small remote lacunar infarct in the right cerebellum unchanged. The exam otherwise negative Interpreted and Authenticated by: David Luna 08/24/22
[2022-08-24] MEDS ORDERED: VANCOMYCIN PER PHARMACY IV SCH (06:00)
--- NOTE | 2022-08-24 06:25 | Cat Scan Report ---
CLINICAL INFORMATION: Diabetic foot wound pain and possible osteomyelitis. Multiple prior surgeries COMPARISON: Postoperative films from nearly one year prior 09/15/2021. TECHNIQUE: 0.625 mm helical slices were obtained from the skull base through the superior T2 end plate, and following reconstruction, 2.5 mm sagittal, coronal and axial reformations were then processed. The exam was reviewed at bone and soft tissue windows. The exam was performed using radiation dose optimization techniques including, but not limited to, automated exposure control, adjustment of the mA and/or kV according to patient size and use of iterative reconstruction technique. FINDINGS: A medial plate and screws transfixes an old medial malleolar fracture which is solidly unified. A plate over the lateral tibia with multiple screws transfixes an oblique fracture of the distal tibial diaphysis, metaphysis and epiphysis. This fracture remains ununited. Ankle fusion changes again noted: a screw extends through the medial malleolus into the medial talus. There is also a screw through the lateral tibia with extension to the central talus. Moderate osteolysis the talar portion of both screws as progressed from the postoperative CT nearly one year prior. A anterior extra-articular plate and screws also support ankle fusion. The most inferior screw extends along the tibial plafond and appears to be partially intra-articular. Moderate osteolytic irregularity in the tibial plafond and talar dome with widening of the ankle mortise and increased from the prior exam. No evidence of osseous fusion across the ankle mortise. This suggests the possibility of septic arthritis. Scattered calcific fragments in the medial particular region, ranging up to 11 mm, seen as before. Catheter tiny radiolucencies throughout the bones of the mid and forefoot only represent disuse osteoporosis. Hallux valgus, metatarsus abductus and hammertoe deformities first through fifth digits seen as before. There is a 3 cm irregular radiolucent lesion in the lateral tibial plateau of uncertain etiology and chronicity. It could represent represent a focus of osteomyelitis. Diffuse subcutaneous soft tissue swelling is compatible with edema or cellulitis. There is also mild myositis and fasciitis, but no evidence of drainable abscess. IMPRESSION: 1. Ankle fusion changes. No evidence of osseous fusion. In fact, the ankle mortise has widened with increased periarticular osteolysis since the comparison postoperative CT one year prior. The most inferior screw of the anterior plate supporting fusion, appears to be intra-articular. Moderate osteolysis about the talar portion of two tibiotalar screws is also increased. The possibility of septic arthritis should be entertained. Suggest orthopedic referral 2. ORIF oblique fracture to the lateral tibial diaphysis, metaphysis and epiphysis. No evidence of osseous union. 3. 3 cm irregular radiolucent lesion in the lateral tibial plateau epiphysis and metaphysis. While this is likely benign the possibility of osteomyelitis should be entertained. 4. Diffuse cellulitis and fasciitis. No evidence of soft tissue abscess Interpreted and Authenticated by: David Luna 08/24/22
[2022-08-24 06:54] LABS: Hematocrit 38.2 % (40.1-51.0); Hemoglobin 13.1 g/dL (13.7-17.5); Mean Cell Volume 86.2 fL (80.0-100.0); Mean Corpuscular HGB Conc 34.3 g/dL (31.0-36.0); Mean Platelet Volume 10.9 fL (8.8-12.5); Platelet Count 161 K/mcL (140-440); RBC 4.43 M/mcL (4.63-6.08); Red Cell Distribution Width 13.2 % (11.5-14.5); WBC 13.2 K/mcL (4.5-11.0)
[2022-08-24 07:23] LABS: ALT/SGPT 17 U/L (<40); AST/SGOT 13 U/L (<40); Albumin 3.4 gm/dL (3.2-5.2); Albumin/Globulin Ratio 1.6 (1.0-2.3); Alkaline Phosphatase 77 U/L (39-117); Bilirubin,Direct < 0.2 mg/dL (0-0.3); Bilirubin,Total 0.5 mg/dL (0.1-1.0); Blood Urea Nitrogen 27 mg/dL (6-20); Calcium 8.1 mg/dL (8.6-10.4); Carbon Dioxide 22 mmol/L (22-30); Chloride 100 mmol/L (96-108); Globulin 2.1 gm/dL (2.2-3.7); Glomerular Filtration Rate 29; Glucose 251 mg/dL (70-105); Lactate Dehydrogenase 183 U/L (135-225); Phosphorous 3.8 mg/dL (2.5-4.5); Triglycerides 400 mg/dL (<150); Uric Acid 6.5 mg/dL (2.5-8.0)
[2022-08-24] MEDS: INSULIN LISPRO 1 UNIT/0.01 ML UNIT SQ SCH ×4 (07:33→21:43)
[2022-08-24 07:37] LABS: Estimated Average Glucose(eAG) 266 mg/dL; Hemoglobin A1C 10.9 % Hgb (4.0-6.0)
[2022-08-24 08:11] LABS: Band Neutrophils % 19 % (0-10); Lymphocytes % 8 % (15-49); Monocytes % (Manual) 6 % (1-12); Platelet Estimate NORMAL (Normal); RBC Morphology NORMAL (Normal); Segmented Neutrophils % 67 % (38-78)
[2022-08-24 08:28] LABS: Vancomycin,Random 12.9 ug/mL
[2022-08-24] MEDS: DOCUSATE SODIUM 100 MG CAPSULE PO SCH ×2 (09:04→21:42)
--- NOTE | 2022-08-24 09:35 | XRay Report ---
CLINICAL INFORMATION: Preop COMPARISON: 08/23/2022 TECHNIQUE: Portable FINDINGS: The heart size, mediastinum and pulmonary vessels are unremarkable. The lungs are clear. There are no effusions. The bones and soft tissues are within normal limits. IMPRESSION: Normal chest. Interpreted and Authenticated by: David Luna 08/24/22
--- NOTE | 2022-08-24 10:46 | Orthopedic Consult Note ---
HPI Date of Consult Consult Date: 08/24/22 Requesting physician: Kishor Bernal Primary Care Provider: Jakub De La Garza Consult Narrative Patient Information: Note initiated : 08/24/22 at 10:38 am Service Date, if different from initiated Date: [] Patient: Jose Alfredo Hernández 57 y/o M admitted on 08/23/22 for fever, decreased level of consciousness. Chief Complaint: [Left foot infection] Patient went hunting over the weekend with a chronic ulceration of the left foot. He returned home then took a nap. An hour later he started shaking and feeling cold. They decided to take him to the hospital as he was unable to move himself well. Chief complaint: Left foot bone infection Reason for consult: Surgical consult for foot infection cc:: CC: Kishor Bernal MD [facility] All Active Problems (Updated 08/23/22 @ 22:40 by Wilmer Foy DO) Cellulitis and abscess of foot (Acute) Fasciitis (Acute) Diabetic foot ulcer (Acute) Sepsis (Acute) Infected hardware in left leg (Acute) Leg osteomyelitis, left (Acute) Chronic renal insufficiency (Chronic) Obstructive sleep apnea (Chronic) GERD (gastroesophageal reflux disease) (Acute) Charcot foot due to diabetes mellitus (Chronic) CKD stage 3 due to type 2 diabetes mellitus (Acute) History of fracture of left ankle (Chronic ~04/2019) History of knee surgery (Chronic) Heart murmur (Chronic) Seizures (Chronic) Headache (Chronic) Arthritis (Chronic) Erectile dysfunction (Chronic) Hypothyroidism (Chronic) Acute chest pain (Chronic) Situational depression (Chronic) Encounter for long-term (current) use of insulin (Chronic) Severe obstructive sleep apnea (Chronic) Cough (Chronic) Type 2 diabetes mellitus treated with insulin (Chronic) Vasovagal syncope (Chronic) Other fracture of left lower leg, initial encounter for closed fracture (Chronic) Microalbuminuria (Chronic) Knee effusion, right (Acute) [place]-Schlatter's disease of right lower extremity (Acute) Acute internal derangement of knee (Acute) Ankle fracture, left (Acute) Hypertensive renal disease (Chronic) Chronic kidney disease, stage II (mild) (Chronic) Proteinuria (Chronic) No pertinent past surgical history (Acute) URI (upper respiratory infection) (Chronic) Depression (Chronic) Epilepsy (Chronic) Enlarged kidney (Chronic) Hyperlipidemia (Chronic 12/06/14) Seizure disorder (Chronic 12/06/14) Gout (Chronic 12/06/14) Diabetes mellitus (Chronic 12/06/14) Hypertension (Chronic 12/06/14) Medical History Acute chest pain Acute internal derangement of knee Arthritis Charcot foot due to diabetes mellitus Dr Malik managing Chronic kidney disease, stage II (mild) most recent s.creat is 1.38 which equals to egfr of 58ml/min per MDRD equation a little worse this visit He has significant proteinuria His renal US shows enlarged kidneys work up negative as above His renal disease is likely sec to DM type 2(this is uncontrolled with sec complications and diabetic kidney disease can cause enlarged kidneys) labs discussed discused imp of optimal HTN and DM type 2 control to prevent declining renal function discussed low sodium diet and diabetic diet avoid frequent use of NSAIDS ct losartan for antiproteinuric and renal protective effect Chronic renal insufficiency CKD stage 3 due to type [address] Santana managing Cough Depression Diabetes mellitus (12/06/14) dietary and lifestyle interventions discussed Encounter for long-term (current) use of insulin Enlarged kidney Epilepsy Erectile dysfunction Gout (12/06/14) Headache Heart murmur Hyperlipidemia (12/06/14) Hypertension (12/06/14) Hypertensive renal disease BP at home ct current medications follow low sodium diet keep a BP log goal BP is less than 140/90 per recent ADA guidelines work on weight loss Hypothyroidism Knee effusion, right Microalbuminuria Obstructive sleep apnea [place]-Schlatter's disease of right lower extremity Other fracture of left lower leg, initial encounter for closed fracture Seizure disorder (12/06/14) Seizures Severe obstructive sleep apnea Situational depression Type 2 diabetes mellitus treated with insulin URI (upper respiratory infection) Vasovagal syncope Surgical History History of fracture of left ankle (~04/2019) [address] Blankenship History of knee surgery torn ACL 15 years ago No pertinent past surgical history Family History Mother Diabetes mellitus Father Liver cancer Prostate cancer Thyroid disorder Grandfather HTN (hypertension) Maternal Stroke Maternal Heart disease maternal Cancer Paternal Social History household members: alone lives independently: Yes marital status: single occupational status: employed occupation: [employer] leisure activities: hunting, fishing and other physical activity: none smoking status: Never smoker and Smokeless tobacco alcohol intake frequency: holiday/special occasion only substance use type: does not use and 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.) MEDS/ALLERGIES Home Medications and Allergies Home Medications Medication Instructions Recorded Confirmed Type glucagon (human recombinant) 1 mg 1 mg IM PRN PRN Hypoglycemia 06/29/19 08/23/22 History solution for injection torsemide 20 mg tablet 20 mg PO QDAY 08/20/20 08/24/22 History allopurinol 100 mg tablet 100 mg PO BID 09/27/20 08/24/22 History aspirin 81 mg tablet,delayed 81 mg PO QDAY 09/27/20 08/24/22 History release (Adult Aspirin Regimen) levothyroxine 75 mcg tablet 75 mcg PO QAM 09/27/20 08/24/22 History (Euthyrox) atorvastatin 20 mg tablet 20 mg PO QDAY 10/29/20 08/24/22 History hydralazine 10 mg tablet 10 mg PO BID 10/29/20 08/24/22 History Novolin 70-30 FlexPen U-100 90 units subcut TID 06/30/22 08/24/22 History famotidine 40 mg tablet 1 tab PO QDAY heartburn 06/30/22 08/23/22 History magnesium oxide 400 mg (241.3 mg 1 tab PO BID 06/30/22 08/24/22 History magnesium) tablet metoprolol succinate 100 mg 2 tab PO QDAY 06/30/22 08/24/22 History tablet,extended release 24 hr albuterol sulfate 90 mcg/actuation 2 puff inhalation Q6H PRN 08/23/22 08/24/22 History aerosol inhaler (Ventolin HFA) Shortness Of Breath amlodipine 10 mg tablet 10 mg PO DAILY 08/23/22 08/24/22 History cholecalciferol (vitamin D3) 50 150 mcg PO QHS 08/23/22 08/24/22 History mcg (2,000 unit) tablet divalproex 500 mg tablet,extended 500 mg PO BID 08/23/22 08/24/22 History release 24 hr duloxetine 30 mg capsule,delayed 60 mg PO QHS 08/23/22 08/24/22 History release semaglutide 1 mg/dose (2 mg/1.5 1 mg subcut WEEKLY 08/23/22 08/24/22 History mL) subcutaneous pen injector (Ozempic) valsartan 160 mg tablet 1 tab PO DAILY 08/23/22 08/24/22 History Allergies Allergy/AdvReac Type Severity Reaction Status Date / Time chlorhexidine Allergy Mild Rash Verified 08/23/22 16:04 [From Hibiclens] lisinopril AdvReac Mild DEVIN Cough Verified 08/23/22 16:04 Physical Examination Narrative Narrative: Narrative: Ankle & Foot left: Ankle appearance: swelling and erythema Foot appearance: swelling and erythema Foot swelling: dorsal, plantar, lateral and other Tenderness with palpation: other (insensate foot) A/P Assessment and plan (1) Cellulitis and abscess of foot: Status: Acute Plan Incision and drainage, left foot Exostostectomy, left fifth metatarsal Time Spent With Patient Time: Total time spent is greater than 50% in coordination of care (as documented) at patient's floor/unit and/or counseling patient: Total time spent with greater than 50% in coordination of care (as documented) at patient's floor/unit and/or counseling patient:: 25 - 35 minutes Critical Care Time: No
[2022-08-24] MEDS: HYDROmorphone 0.5 MG/0.5 ML SYRINGE IV PRN ×2 (10:55→15:40)
[2022-08-24] MEDS ORDERED: VANCOMYCIN 2,000 MG in 0.9 % SODIUM CHLORIDE 500 ML IV ONE (12:00)
[2022-08-24] MEDS ORDERED: ALBUTEROL SULFATE 200 PUFF INHALER INH PRN (12:47)
[2022-08-24] MEDS ORDERED: PROPOFOL 200 MG/20 ML VIAL IV ONE (17:14)
[2022-08-24] MEDS ORDERED: fentaNYL 100 MCG/2 ML VIAL IV ONE (17:14)
[2022-08-24] MEDS ORDERED: DEXAMETHASONE 10 MG/ML VIAL ONE (17:14)
[2022-08-24] MEDS ORDERED: LIDOCAINE HCL/PF 100 MG/5 ML SYRINGE IV ONE (17:14)
[2022-08-24] MEDS ORDERED: MAGNESIUM SULFATE 2 GM/50 ML BAG IV ONE (17:14)
[2022-08-24] MEDS ORDERED: GLYCOPYRROLATE 0.2 MG/ML VIAL IV ONE (17:14)
[2022-08-24] MEDS ORDERED: KETAMINE 50 MG/ML Syringe (ANEST) IV ONE (17:14)
[2022-08-24] MEDS ORDERED: ONDANSETRON 4 MG/2 ML VIAL ONE (17:14)
[2022-08-24] MEDS ORDERED: VANCOMYCIN 1 GM VIAL TOPICAL SCH (17:20)
[2022-08-24] MEDS ORDERED: LABETALOL 5 MG/ML ML IV PRN ×2 (17:45→23:08)
[2022-08-24] MEDS ORDERED: LACTATED RINGERS 1,000 ML IV SCH (17:45)
[2022-08-24] MEDS ORDERED: ACETAMINOPHEN 1,000 MG/100 ML BAG IV ONE (17:45)
[2022-08-24] MEDS ORDERED: IPRATROPIUM/ALBUTEROL 3 ML AMPUL.NEB NEB PRN (17:45)
[2022-08-24] MEDS ORDERED: METOPROLOL TARTRATE 5 MG/5 ML VIAL IV PRN (17:45)
[2022-08-24] MEDS ORDERED: fentaNYL 100 MCG/2 ML VIAL IV PRN (17:45)
[2022-08-24] MEDS ORDERED: NALOXONE HCL 0.4 MG/ML VIAL IV PRN (17:45)
[2022-08-24] MEDS ORDERED: LACTATED RINGERS 250 ML IV PRN (17:45)
[2022-08-24] MEDS ORDERED: METHOCARBAMOL 1,000 MG/10 ML VIAL IV PRN (17:45)
[2022-08-24] MEDS ORDERED: ONDANSETRON 4 MG/2 ML VIAL IV PRN (17:45)
--- NOTE | 2022-08-24 17:54 | Brief Operative Note ---
Brief Operative Note Date of procedure: 08/24/22 Pre-op diagnosis: left foot osteomyelitis, left foot cellulitis, exostosis left fifth meta Post-op diagnosis: same Procedure: left foot incision and drainage, left fifth metatarsal exostectomy Grafts/Implants: No Anesthesia: GETA Findings: consistent with diagnosis Complications: none Surgeon: Shakeel Rodriguez Estimated blood loss (cc): 20 Tourniquet Time (Minutes): 12 Specimens Removed/Pathology: other (bone biopsy, deep tissue culture) Condition: stable Disposition: floor
[2022-08-24] MEDS: SENNOSIDES 1 TABLET PO SCH (21:42)
[2022-08-24] MEDS: DULoxetine 30 MG CAPSULE PO SCH (21:43)
[2022-08-24] MEDS: DIVALPROEX SODIUM 250 MG TABLET PO SCH (21:43)
[2022-08-24] MEDS: ALLOPURINOL 100 MG TABLET PO SCH (21:44)
[2022-08-24] MEDS ORDERED: hydrALAZINE 10 MG TABLET PO ONE (23:18)
[2022-08-24] MEDS ORDERED: amLODIPine 10 MG TABLET PO ONE (23:19)
[2022-08-24] MEDS ORDERED: LABETALOL 5 MG/ML ML IV ONE (23:20)
[2022-08-24] MEDS ORDERED: amLODIPine 5 MG TABLET ONE (23:40)
[2022-08-25] MEDS: HYDROmorphone 0.5 MG/0.5 ML SYRINGE IV PRN ×2 (01:58→14:09)
[2022-08-25] MEDS: HYDROcodone/APAP 5/325MG TABLET PO PRN ×5 (02:06→20:41)
[2022-08-25] MEDS: metroNIDAZOLE 500 MG/100 ML BAG IV SCH ×3 (05:40→21:14)
[2022-08-25] MEDS: 0.9 % SODIUM CHLORIDE 10 ML SYRINGE IV SCH ×3 (06:39→21:53)
[2022-08-25] MEDS: LEVOTHYROXINE 75 MCG TABLET PO SCH ×2 (07:01→08:39)
[2022-08-25] MEDS: 0.9 % SODIUM CHLORIDE 1,000 ML IV SCH (07:08)
--- NOTE | 2022-08-25 08:09 | Operative Note ---
DATE OF OPERATION: 08/24/2022 DATE OF PROCEDURE: 08/24/2022 PREOPERATIVE DIAGNOSES: Left foot osteomyelitis, left foot cellulitis, exostosis left fifth metatarsal. POSTOPERATIVE DIAGNOSES: Left foot osteomyelitis, left foot cellulitis, exostosis left fifth metatarsal. PROCEDURE: Left foot incision and drainage, left fifth metatarsal exostectomy. SURGEON: Shakeel Rodriguez DPM IMPLANTS: None. ANESTHESIA: GETA. COMPLICATIONS: None. BLOOD LOSS: 20 mL. TOURNIQUET TIME: 12 minutes. SPECIMENS: Bone biopsy, left foot and deep tissue culture, left foot. CONDITION: Stable. DISPOSITION: Floor. PROCEDURE IN DETAIL: The patient was brought to the operating room and placed on the operating table in supine position. The left lower extremity was scrubbed, prepped and draped in the usual aseptic fashion. Esmarch applied. Pneumatic thigh tourniquet inflated to 250 mmHg. For left foot incision and drainage, a 4.5 cm incision placed on the lateral aspect of the foot overlying the ulceration, which has substantial purulent drainage. This was opened and all abscesses were accessed through this point here. A sagittal saw blade was used to remove a 2.5 cm sized portion of the fifth metatarsal with signs of osteomyelitis, which was underlying the ulceration. This was sent for culture. The area was then irrigated with 3 liters of normal saline under pulse lavage and 1 gram vancomycin powder was packed into the area. The same was applied to purulent second digit of the left foot, which was opened and irrigated. The patient tolerated the procedure and anesthesia well. Xeroform, 4 x 4 gauze, Kerlix, ABD pad, and were Coban placed. The patient was then transferred to the postoperative care unit and will be transferred to the floor for continued antibiotic therapy. KDPilar:[email or web address] Job ID: [id number] Doc ID: [id number] Shakeel Rodriguez DPM
[2022-08-25 08:27] LABS: Vancomycin,Random 14.8 ug/mL
[2022-08-25] MEDS: INSULIN LISPRO 1 UNIT/0.01 ML UNIT SQ SCH ×6 (08:32→21:01)
[2022-08-25] MEDS: ASPIRIN 81 MG TAB.CHEW PO SCH (08:32)
[2022-08-25] MEDS: FAMOTIDINE 20 MG TABLET PO SCH (08:32)
[2022-08-25] MEDS: ALLOPURINOL 100 MG TABLET PO SCH ×2 (08:32→21:03)
[2022-08-25] MEDS: DOCUSATE SODIUM 100 MG CAPSULE PO SCH ×2 (08:33→21:03)
[2022-08-25] MEDS: METOPROLOL SUCCINATE 50 MG TAB.XL.24H PO SCH (08:33)
[2022-08-25] MEDS: amLODIPine 10 MG TABLET PO SCH (08:33)
[2022-08-25] MEDS: hydrALAZINE 10 MG TABLET PO SCH ×2 (08:36→21:02)
[2022-08-25] MEDS: DIVALPROEX SODIUM 250 MG TABLET PO SCH ×2 (08:36→21:03)
[2022-08-25] MEDS: ATORVASTATIN 20 MG TABLET PO SCH (08:36)
[2022-08-25] MEDS: CEFEPIME 2 GM VIAL IV SCH ×2 (08:36→21:12)
[2022-08-25 08:53] LABS: Basophils # (Auto) 0.03 K/mcL (0.00-0.30); Basophils % (Auto) 0.2 % (0.0-2.0); Eosinophils # (Auto) 0.01 K/mcL (0.00-0.70); Eosinophils % (Auto) 0.1 % (0.0-7.0); Hemoglobin 11.9 g/dL (13.7-17.5); Lymphocytes # (Auto) 1.92 K/mcL (1.50-4.80); Lymphocytes % (Auto) 14.6 % (15.5-49.0); Mean Cell Volume 89.1 fL (80.0-100.0); Mean Corpuscular HGB Conc 33.1 g/dL (31.0-36.0); Mean Platelet Volume 11.1 fL (8.8-12.5); Monocytes # (Auto) 1.14 K/mcL (0.10-0.90); Monocytes % (Auto) 8.7 % (1.0-12.0); Neutrophils % (Auto) 75.7 % (38.0-78.0); Platelet Count 146 K/mcL (140-440); RBC 4.04 M/mcL (4.63-6.08); Red Cell Distribution Width 13.2 % (11.5-14.5); WBC 13.1 K/mcL (4.5-11.0)
[2022-08-25 09:04] LABS: ALT/SGPT 16 U/L (<40); AST/SGOT 13 U/L (<40); Albumin 2.9 gm/dL (3.2-5.2); Albumin/Globulin Ratio 1.2 (1.0-2.3); Alkaline Phosphatase 67 U/L (39-117); Bilirubin,Direct < 0.2 mg/dL (0-0.3); Bilirubin,Total 0.5 mg/dL (0.1-1.0); Blood Urea Nitrogen 35 mg/dL (6-20); Calcium 7.8 mg/dL (8.6-10.4); Carbon Dioxide 21 mmol/L (22-30); Chloride 96 mmol/L (96-108); Globulin 2.4 gm/dL (2.2-3.7); Glomerular Filtration Rate 27; Glucose 300 mg/dL (70-105); Lactate Dehydrogenase 194 U/L (135-225); Triglycerides 377 mg/dL (<150); Uric Acid 5.5 mg/dL (2.5-8.0)
[2022-08-25] MEDS ORDERED: VANCOMYCIN 1,500 MG in 0.9 % SODIUM CHLORIDE 500 ML IV ONE (11:00)
--- NOTE | 2022-08-25 13:51 | Internal Med Progress Note ---
SUBJECTIVE Subjective Patient information: Note initiated : 08/25/22 at 1:41 pm Service Date, if different from initiated Date: [] Patient: Jose Alfredo Hernández 57 y/o M admitted on 08/23/22 for Left Foot Irrigation & Debridement, Exostectomy,. Chief Complaint: [] Interval history: Mr. Hernández is a 57 year old male with a history of hypertension, hyperlipidemia, insulin dependent diabetes mellitus complicated by neuropathy and diabetic foot wounds, prior left tibiotalar joint arthrodesis , CKD stage 3, possible seizure disorder, BARRY and obesity who was sent to [facility] ED from the ED in [place] for concern for osteomyelitis. At the [facility] ED, the patient was noted to have a fluctuant, red and tender ulcer on the lateral aspect of his left foot. There is also a infected appearing wound top of a left toe. The patient was febrile and tachycardic in the emergency department. A CT of his left lower extremity with contrast showed changes in the left ankle arthrodesis area concerning for possible septic arthritis. The patient was started on broad-spectrum antibiotics. Hospital medicine was asked to admit the patient with orthopedic surgery consulted for operative repair. History was taken from the patient's at bedside as the patient is unable to provide a history due to altered mental status. 08/25 Yesterday evening, podiatry took the patient to the OR for a left foot I&D, left fifth metatarsal exostectomy. There was evidence of osteomyelitis of the fifth metatarsal. Specimens were sent for culture. Discussed with podiatry, Dr. Shakeel Rodriguez, who felt that he was able to remove the infected bone entirely. He does not feel like the hardware in the left ankle is involved in this infection. The patient had elevated temperatures fevers overnight however fever trend has improved since admission. Blood cultures are growing gram-positive cocci in 2 out of 2 bottles. Repeat blood cultures obtained. Transthoracic echocardiogram ordered. Renal function has slightly worsened since yesterday, the patient is beginning to develop volume overload with bilateral lower extremity edema therefore we will discontinue IV antibiotics and follow renal function. The patient likely has acute tubular necrosis secondary to sepsis. Increased Lantus and started prandial Humalog, continued Humalog SSI. The patient is alert and oriented this morning, able to engage in conversation. Physical exam Head: Atraumatic, normal inspection. Eyes: normal appearance, no scleral icterus. Neck: full ROM Respiratory: 1 L/min nasal cannula oxygen, no respiratory distress. Cardiovascular: normal rate and rhythm, S1, S2. GI/Abdominal: soft, nontender, no guarding. Extremities: Left foot surgical incision covered with clean bandage, bilateral lower extremity pitting edema up to mid hong. Neurological: CN II-XII intact, intact motor, intact sensation. Psychiatric: normal mood. Skin: warm, normal color Constitutional Vitals: Vital Signs Temp Pulse Resp BP Pulse Ox O2 Del Method O2 Flow Rate 99.9 F H 86 20 161/87 97 1 08/25/22 12:01 08/25/22 12:02 08/25/22 12:02 08/25/22 12:01 08/25/22 12:02 08/25/22 12:01 08/25/22 12:01 Period Temp Pulse Resp BP Sys/Medina Pulse Ox O2 Del Method O2 Flow Rate Last 24 Hr 97.2 F-101.2 F 86-107 12-33 107-200/69-102 89-100 CPAP-Simple Mask 1-8 Intake and Output 08/24/22 08/25/22 08/25/22 21:59 05:59 13:59 Intake Total 2927 2600 2400 Output Total 865 525 150 Balance 2061 2074 225 Weight 133.039 kg Intake & Output: Intake & Output 08/24/22 08/25/22 08/25/22 21:59 05:59 13:59 Intake Total 2927 2600 2400 Output Total 865 525 150 Balance 2061 2074 225 Weight 133.039 kg Intake: IV 1427 1100 600 Sodium Chloride 0.9% 1,000 ml @ 727 1000 100 mls/hr IV .Q10H [facility] Rx#: [id number] Vancomycin 1,500 mg In Sodium 500 500 Chloride 0.9% 500 ml @ 333.3 mls/hr IV ONCE ONE Rx#: [id number] Oral 1500 1800 IV - Manual Only 1500 Output: Urine Catheter Amount 550 525 Void Amount 295 150 Estimated Blood Loss 20 Other: Meal snack Lunch Percent of Meal Consumed 100% 75% Feeding Ability Independent Nourishment/Supplement name katrin X2 Urine Appearance Clear Clear Straight Clear Clear Urine Color Light Addis Dark Yellow Straight Light Addis Dark Yellow Urine Odor Normal OBJ DATA Labs CBC & Chem 7: 08/25/22 07:44 08/25/22 07:44 Labs: Abnormal Lab Results 08/25/22 08/25/22 08/24/22 07:44 07:44 05:35 WBC 13.1 H RBC 4.04 L Hgb 11.9 L Hct 36.0 L POC Hct Immature Gran % (Auto) 0.7 H Neut % (Auto) Lymph % (Auto) 14.6 L Lymph # (Auto) Garrard # (Auto) 1.14 H Band Neutrophils % Lymphocytes % Immature Gran # 0.09 H Absolute Neutrophils 9.92 H POC VBG pH POC VBG pCO2 at Temp POC VBG pO2 POC VBG HCO3 POC VBG Total CO2 POC Venous O2 Sat VBG Lactic Acid Sodium 131 L Carbon Dioxide 21 L POC BUN BUN 35 H 27 H Creatinine 2.6 H 2.4 H POC Creatinine Glucose 300 H 251 H POC Glucose Hemoglobin A1c 10.9 H Calcium 7.8 L 8.1 L POC WB Ioniz Calcium C-Reactive Protein Total Protein 5.3 L 5.5 L Albumin 2.9 L Globulin 2.1 L Triglycerides 377 H 400 H Procalcitonin CSF RBC CSF Glucose 08/24/22 08/23/22 08/23/22 05:35 18:35 16:43 WBC 13.2 H RBC 4.43 L Hgb 13.1 L Hct 38.2 L POC Hct 39.0 L Immature Gran % (Auto) Neut % (Auto) Lymph % (Auto) Lymph # (Auto) Garrard # (Auto) Band Neutrophils % 19 H Lymphocytes % 8 L Immature Gran # Absolute Neutrophils POC VBG pH POC VBG pCO2 at Temp POC VBG pO2 POC VBG HCO3 POC VBG Total CO2 POC Venous O2 Sat VBG Lactic Acid Sodium Carbon Dioxide POC BUN 33 H BUN Creatinine POC Creatinine 2.2 H Glucose POC Glucose 235 H Hemoglobin A1c Calcium POC WB Ioniz Calcium 1.11 L C-Reactive Protein Total Protein Albumin Globulin Triglycerides Procalcitonin CSF RBC 7 H CSF Glucose 167 H* 08/23/22 08/23/22 08/23/22 16:42 16:15 16:15 WBC RBC Hgb Hct POC Hct Immature Gran % (Auto) Neut % (Auto) Lymph % (Auto) Lymph # (Auto) Garrard # (Auto) Band Neutrophils % Lymphocytes % Immature Gran # Absolute Neutrophils POC VBG pH 7.51 H POC VBG pCO2 at Temp 29.7 L POC VBG pO2 56 H POC VBG HCO3 23.6 L POC VBG Total CO2 24.0 L POC Venous O2 Sat 92.0 H VBG Lactic Acid 2.1 H Sodium Carbon Dioxide POC BUN BUN Creatinine POC Creatinine Glucose POC Glucose Hemoglobin A1c Calcium POC WB Ioniz Calcium C-Reactive Protein 2.70 H Total Protein Albumin Globulin Triglycerides Procalcitonin 0.24 H CSF RBC CSF Glucose 08/23/22 16:15 WBC RBC Hgb Hct POC Hct Immature Gran % (Auto) 0.7 H Neut % (Auto) 85.9 H Lymph % (Auto) 6.0 L Lymph # (Auto) 0.65 L Garrard # (Auto) Band Neutrophils % Lymphocytes % Immature Gran # 0.08 H Absolute Neutrophils 9.27 H POC VBG pH POC VBG pCO2 at Temp POC VBG pO2 POC VBG HCO3 POC VBG Total CO2 POC Venous O2 Sat VBG Lactic Acid Sodium Carbon Dioxide POC BUN BUN Creatinine POC Creatinine Glucose POC Glucose Hemoglobin A1c Calcium POC WB Ioniz Calcium C-Reactive Protein Total Protein Albumin Globulin Triglycerides Procalcitonin CSF RBC CSF Glucose Meds: Medications Acetaminophen (Acetaminophen 325 Mg Tablet) 650 mg PO Q6HP PRN; Protocol PRN Reason: Per Pain Protocol/Fever > 101 Last Admin: 08/24/22 12:14 Dose: 650 mg Hydrocodone Bitart/Acetaminophen (Hydrocodone/Apap 5/325mg Tablet) 1 tab PO Q4HP PRN; Protocol PRN Reason: Per Pain Protocol Last Admin: 08/25/22 12:38 Dose: 1 tab Albuterol Sulfate (Albuterol Sulfate 200 Puff Inhaler) 2 puff INH Q6HP PRN PRN Reason: Shortness Of Breath Allopurinol (Allopurinol 100 Mg Tablet) 100 mg PO BID [facility] Last Admin: 08/25/22 08:32 Dose: 100 mg Amlodipine Besylate (Amlodipine 10 Mg Tablet) 10 mg PO DAILY [facility] Last Admin: 08/25/22 08:33 Dose: 10 mg Aspirin (Aspirin 81 Mg Tab.Chew) 81 mg PO DAILY [facility] Last Admin: 08/25/22 08:32 Dose: 81 mg Atorvastatin Calcium (Atorvastatin 20 Mg Tablet) 20 mg PO QDAY [facility] Last Admin: 08/25/22 08:36 Dose: 20 mg Cefepime HCl (Cefepime 2 Gm Vial) 2 gm IV Q12H [facility]; Protocol Last Admin: 08/25/22 08:36 Dose: 2 gm Dextrose (Dextrose 50% 50 Ml Vial) 0 ml IV UD PRN PRN Reason: Per Sliding Scale Diagnostic Test (Pha) (Accu-Chek 1 Each Strip) 1 each FS ACHS [facility] Last Admin: 08/25/22 11:04 Dose: 1 each Divalproex Sodium (Divalproex Sodium 250 Mg Tablet) 500 mg PO BID [facility] Last Admin: 08/25/22 08:36 Dose: 500 mg Docusate Sodium (Docusate Sodium 100 Mg Capsule) 100 mg PO BID [facility] Last Admin: 08/25/22 08:33 Dose: 100 mg Duloxetine HCl (Duloxetine 30 Mg Capsule) 60 mg PO QHS [facility] Last Admin: 08/24/22 21:43 Dose: 60 mg Famotidine (Famotidine 20 Mg Tablet) 40 mg PO DAILY [facility] Last Admin: 08/25/22 08:32 Dose: 40 mg Glucose (Dextrose 31 Gm Oral.Susp) 15 gm PO PRN PRN PRN Reason: Hypoglycemia Hydralazine HCl (Hydralazine 10 Mg Tablet) 10 mg PO BID [facility] Last Admin: 08/25/22 08:36 Dose: 10 mg Hydralazine HCl (Hydralazine 20 Mg/Ml Vial) 10 mg IV Q2HP PRN PRN Reason: Hypertension Hydromorphone HCl (Hydromorphone 0.5 Mg/0.5 Ml Syringe) 0.5 mg IV Q2HP PRN; Pro tocol PRN Reason: Per Pain Protocol Last Admin: 08/25/22 01:58 Dose: 0.5 mg Metronidazole (Flagyl) 500 mg in 100 mls @ 100 mls/hr IV Q8H [facility]; Protocol Last Infusion: 08/25/22 08:58 Dose: Infused Insulin Glargine (Insulin Glargine, Human 1 Unit/0.01 Ml) 30 unit SQ HS [facility] Insulin Human Lispro (Insulin Lispro 1 Unit/0.01 Ml Unit) 0 unit SQ ACHS [facility]; Protocol Last Admin: 08/25/22 11:48 Dose: 15 units Insulin Human Lispro (Insulin Lispro 1 Unit/0.01 Ml Unit) 10 unit SQ AC [facility] Last Admin: 08/25/22 11:48 Dose: 10 units Labetalol HCl (Labetalol 5 Mg/Ml Ml) 10 mg IV Q2HP PRN PRN Reason: Hypertension Levothyroxine Sodium (Levothyroxine 75 Mcg Tablet) 75 mcg PO QAM [facility] Last Admin: 08/25/22 08:39 Dose: Not Given Metoprolol Succinate (Metoprolol Succinate 50 Mg Tab.Xl.24h) 200 mg PO DAILY [facility] Last Admin: 08/25/22 08:33 Dose: 200 mg Ondansetron HCl (Ondansetron 4 Mg/2 Ml Vial) 4 mg IV Q6HP PRN PRN Reason: Nausea And Vomiting Senna (Sennosides 1 Tablet) 2 tab PO HS [facility] Last Admin: 08/24/22 21:42 Dose: 2 tab Sodium Chloride (0.9 % Sodium Chloride 10 Ml Syringe) 10 ml IV Q8 [facility] Last Admin: 08/25/22 06:39 Dose: 10 ml Vancomycin HCl (Vancomycin Per Pharmacy) 1 order IV UD [facility]; Protocol A/P Narrative A/P Narrative: Assessment: 57 year old male with a history of hypertension, hyperlipidemia, insulin dependent diabetes mellitus complicated by neuropathy and diabetic foot wounds, prior left tibiotalar joint arthrodesis , CKD stage 3, possible seizure disorder, BARRY and obesity who was sent to [facility] ED from the ED in [place] for c oncern for osteomyelitis. There was no CT scan capability there at the time. The patient is admitted to [facility] for severe sepsis complicated by acute kidney injury and acute hypoxic respiratory failure secondary to staph aureus bacteremia secondary to a diabetic foot infection complicated by osteomyelitis of the fifth metatarsal. The patient underwent I&D and resection of the infected bone on 08/24/2022. #Severe sepsis due staff aureus bacteremia secondary to diabetic foot wound complicated by fifth metatarsal osteomyelitis status post I&D and resection 08/24/2022 #Acute on chronic kidney disease stage 3 injury due to sepsis #Acute hypoxic respiratory failure likely secondary to sepsis #Resolved encephalopathy secondary to sepsis #Insulin dependent diabetes mellitus #Essential hypertension #Hyperlipidemia #History of diabetic foot wounds #Possible seizure disorder #Obstructive sleep apnea #Obesity BMI 34 #History of left tibiotalar joint arthrodesis complicated by nonunion Plan -Broad-spectrum antibiotic coverage with vancomycin IV, Cefepime, and Flagyl IV for now, likely de-escalate soon. -Follow blood cultures, repeat until showing no growth to date. -Follow surgical cultures. -Will need PICC line when blood cultures showing no growth to date for 48 to 72 hours. -Oxygen supplementation as needed. -Discontinue IV fluids, monitor renal function, urine output and volume status. -Analgesics as needed, avoid NSAIDs. -Lantus 30 units HS, prandial Humalog 10 units, and SSI-high dose for now. -Continue home allopurinol, aspirin, atorvastatin, Depakote, Cymbalta, Norvasc, Pepcid. -Holding home losartan for CHIKA, and Ozempic while inpatient. -Podiatry consult. -Consider infectious disease consult. -Consistent carbohydrate diet. -PT consult. -CPAP at bedtime -CODE STATUS: Full -DVT prophylaxis: Heparin SQ -Disposition: Probably home when stable, dissipating 4 weeks of IV antibiotics via PICC line for staph aureus bacteremia. Time Spent With Patient Time: Total time spent is greater than 50% in coordination of care (as documented) at patient's floor/unit and/or counseling patient: QUALITY VTE Deep Vein Thrombosis/Pulmonary Embolism Present on Admission: No
[2022-08-25] MEDS ORDERED: amLODIPine 10 MG TABLET PO SCH (13:55)
[2022-08-25] MEDS: LABETALOL 5 MG/ML ML IV PRN (20:35)
[2022-08-25] MEDS ORDERED: INSULIN GLARGINE, HUMAN 1 UNIT/0.01 ML SQ SCH ×2 (21:00)
[2022-08-25] MEDS: HEPARIN 5,000 UNIT/ML VIAL SQ SCH (21:02)
[2022-08-25] MEDS: DULoxetine 30 MG CAPSULE PO SCH (21:03)
[2022-08-25] MEDS: SENNOSIDES 1 TABLET PO SCH (21:03)
[2022-08-26] MEDS: 0.9 % SODIUM CHLORIDE 10 ML SYRINGE IV SCH ×3 (05:46→20:46)
[2022-08-26 06:12] LABS: Basophils # (Auto) 0.03 K/mcL (0.00-0.30); Basophils % (Auto) 0.3 % (0.0-2.0); Eosinophils # (Auto) 0.15 K/mcL (0.00-0.70); Eosinophils % (Auto) 1.4 % (0.0-7.0); Hematocrit 34.9 % (40.1-51.0); Hemoglobin 11.9 g/dL (13.7-17.5); Lymphocytes % (Auto) 13.7 % (15.5-49.0); Mean Corpuscular HGB Conc 34.1 g/dL (31.0-36.0); Mean Platelet Volume 10.8 fL (8.8-12.5); Monocytes # (Auto) 1.07 K/mcL (0.10-0.90); Monocytes % (Auto) 9.8 % (1.0-12.0); Platelet Count 152 K/mcL (140-440); RBC 4.06 M/mcL (4.63-6.08); Red Cell Distribution Width 12.8 % (11.5-14.5)
[2022-08-26 06:58] LABS: ALT/SGPT 15 U/L (<40); AST/SGOT 15 U/L (<40); Albumin 2.9 gm/dL (3.2-5.2); Albumin/Globulin Ratio 1.3 (1.0-2.3); Alkaline Phosphatase 66 U/L (39-117); Bilirubin,Direct < 0.2 mg/dL (0-0.3); Bilirubin,Total 0.3 mg/dL (0.1-1.0); Blood Urea Nitrogen 40 mg/dL (6-20); Calcium 8.3 mg/dL (8.6-10.4); Carbon Dioxide 21 mmol/L (22-30); Chloride 99 mmol/L (96-108); Globulin 2.3 gm/dL (2.2-3.7); Glomerular Filtration Rate 32; Glucose 201 mg/dL (70-105); Lactate Dehydrogenase 213 U/L (135-225); Phosphorous 3.5 mg/dL (2.5-4.5); Triglycerides 398 mg/dL (<150); Uric Acid 5.1 mg/dL (2.5-8.0)
[2022-08-26 07:00] LABS: Vancomycin,Random 14.8 ug/mL
[2022-08-26] MEDS: LEVOTHYROXINE 75 MCG TABLET PO SCH (07:35)
[2022-08-26] MEDS: ASPIRIN 81 MG TAB.CHEW PO SCH (09:28)
[2022-08-26] MEDS: METOPROLOL SUCCINATE 50 MG TAB.XL.24H PO SCH (09:28)
[2022-08-26] MEDS: FAMOTIDINE 20 MG TABLET PO SCH (09:29)
[2022-08-26] MEDS: DOCUSATE SODIUM 100 MG CAPSULE PO SCH ×2 (09:29→20:19)
[2022-08-26] MEDS: DIVALPROEX SODIUM 250 MG TABLET PO SCH ×2 (09:30→20:17)
[2022-08-26] MEDS: ATORVASTATIN 20 MG TABLET PO SCH (09:31)
[2022-08-26] MEDS: HYDROcodone/APAP 5/325MG TABLET PO PRN ×2 (09:32→17:31)
[2022-08-26] MEDS: ALLOPURINOL 100 MG TABLET PO SCH ×2 (09:34→20:18)
[2022-08-26] MEDS: HEPARIN 5,000 UNIT/ML VIAL SQ SCH ×2 (09:35→20:19)
[2022-08-26] MEDS: amLODIPine 10 MG TABLET PO SCH (09:36)
[2022-08-26] MEDS: hydrALAZINE 10 MG TABLET PO SCH ×2 (09:36→20:19)
[2022-08-26] MEDS: INSULIN LISPRO 1 UNIT/0.01 ML UNIT SQ SCH ×8 (09:36→20:35)
[2022-08-26] MEDS ORDERED: FLU VACC QS2022-23(6MOS UP)/PF 60 MCG/0.5 ML SYRINGE IM ONE (10:00)
[2022-08-26] MEDS ORDERED: FUROSEMIDE 40 MG/4 ML VIAL IV SCH (10:16)
--- NOTE | 2022-08-26 11:09 | Infectious Disease Consult ---
Telemedicine Intake Consent for assessment and treatment to occur via virtual technology obtained from: Patient Location of Provider: Home Patient location: Intensive Care Unit Any recent travel (within the last 21 days)?: No HPI Date of Consult Consult Date: 08/26/22 Requesting physician: Kishor Bernal Primary Care Provider: Jakub De La Garza Consult Narrative Patient Information: Note initiated : 08/26/22 at 11:08 am Service Date, if different from initiated Date: [] Patient: Jose Alfredo Hernández 57 y/o M admitted on 08/23/22 for Left Foot Irrigation & Debridement, Exostectomy,. Chief Complaint: [] 57 yo with history of hypertension, hyperlipidemia,diabetes mellitus, peripheral neuropathy and diabetic foot wounds, prior left tibiotalar joint arthrodesis , CKD stage 3, possible seizure disorder, BARRY and obesity hospitalized for sepsis and osteomyelitis. In the ED, the patient was noted to have a fluctuant, red and tender ulcer on the lateral aspect of his left foot. There is also a infected appearing wound top of a left toe. The patient was febrile and tachycardic. Imaging showed possible septic arthritis and OM. Patient underwent left foot incision and drainage, left fifth metatarsal exostectomy. Multiple blood culture and wound cultures are positive for S. aureus. Patient had a left distal tibial fracture in 04/2019. He had ?ORIF and then had a fibula fracture 6 months later. He had another ORIF. Since then, he has internal rotation of his foot and walks on the lateral aspect of the foot. DUe to the CT findings of the ankle, ID is consulted for antibiotic recommendation. Patient also had an echo that showed a small vegetation on the AV. EF is 45-50%. Patient is clinically more stable. Chief complaint: Sepsis Reason for consult: Antibiotics cc:: CC: Kishor Bernal MD Constitutional Constitutional: Present as per HPI PFSH PFSH All Active Problems (Updated 08/23/22 @ 22:40 by Wilmer Foy DO) Cellulitis and abscess of foot (Acute) Fasciitis (Acute) Diabetic foot ulcer (Acute) Sepsis (Acute) Infected hardware in left leg (Acute) Leg osteomyelitis, left (Acute) Chronic renal insufficiency (Chronic) Obstructive sleep apnea (Chronic) GERD (gastroesophageal reflux disease) (Acute) Charcot foot due to diabetes mellitus (Chronic) CKD stage 3 due to type 2 diabetes mellitus (Acute) History of fracture of left ankle (Chronic ~04/2019) History of knee surgery (Chronic) Heart murmur (Chronic) Seizures (Chronic) Headache (Chronic) Arthritis (Chronic) Erectile dysfunction (Chronic) Hypothyroidism (Chronic) Acute chest pain (Chronic) Situational depression (Chronic) Encounter for long-term (current) use of insulin (Chronic) Severe obstructive sleep apnea (Chronic) Cough (Chronic) Type 2 diabetes mellitus treated with insulin (Chronic) Vasovagal syncope (Chronic) Other fracture of left lower leg, initial encounter for closed fracture (Chronic) Microalbuminuria (Chronic) Knee effusion, right (Acute) Creston-Schlatter's disease of right lower extremity (Acute) Acute internal derangement of knee (Acute) Ankle fracture, left (Acute) Hypertensive renal disease (Chronic) Chronic kidney disease, stage II (mild) (Chronic) Proteinuria (Chronic) No pertinent past surgical history (Acute) URI (upper respiratory infection) (Chronic) Depression (Chronic) Epilepsy (Chronic) Enlarged kidney (Chronic) Hyperlipidemia (Chronic 12/06/14) Seizure disorder (Chronic 12/06/14) Gout (Chronic 12/06/14) Diabetes mellitus (Chronic 12/06/14) Hypertension (Chronic 12/06/14) Medical History Acute chest pain Acute internal derangement of knee Arthritis Charcot foot due to diabetes mellitus Dr Malik managing Chronic kidney disease, stage II (mild) most recent s.creat is 1.38 which equals to egfr of 58ml/min per MDRD equation a little worse this visit He has significant proteinuria His renal US shows enlarged kidneys work up negative as above His renal disease is likely sec to DM type 2(this is uncontrolled with sec complications and diabetic kidney disease can cause enlarged kidneys) labs discussed discused imp of optimal HTN and DM type 2 control to prevent declining renal function discussed low sodium diet and diabetic diet avoid frequent use of NSAIDS ct losartan for antiproteinuric and renal protective effect Chronic renal insufficiency CKD stage 3 due to type [address] Santana managing Cough Depression Diabetes mellitus (12/06/14) dietary and lifestyle interventions discussed Encounter for long-term (current) use of insulin Enlarged kidney Epilepsy Erectile dysfunction Gout (12/06/14) Headache Heart murmur Hyperlipidemia (12/06/14) Hypertension (12/06/14) Hypertensive renal disease BP at home ct current medications follow low sodium diet keep a BP log goal BP is less than 140/90 per recent ADA guidelines work on weight loss Hypothyroidism Knee effusion, right Microalbuminuria Obstructive sleep apnea Creston-Schlatter's disease of right lower extremity Other fracture of left lower leg, initial encounter for closed fracture Seizure disorder (12/06/14) Seizures Severe obstructive sleep apnea Situational depression Type 2 diabetes mellitus treated with insulin URI (upper respiratory infection) Vasovagal syncope Surgical History History of fracture of left ankle (~04/2019) [address] Blankenship History of knee surgery torn ACL 15 years ago No pertinent past surgical history Family History Mother Diabetes mellitus Father Liver cancer Prostate cancer Thyroid disorder Grandfather HTN (hypertension) Maternal Stroke Maternal Heart disease maternal Cancer Paternal Social History household members: alone lives independently: Yes marital status: single occupational status: employed 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 leisure activities: hunting, fishing and other physical activity: none smoking status: Never smoker and Smokeless tobacco alcohol intake frequency: holiday/special occasion only substance use type: does not use 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.) MEDS/ALLERGIES Home Medications and Allergies Home Medications Medication Instructions Recorded Confirmed Type glucagon (human recombinant) 1 mg 1 mg IM PRN PRN Hypoglycemia 06/29/19 08/23/22 History solution for injection torsemide 20 mg tablet 20 mg PO QDAY 08/20/20 08/24/22 History allopurinol 100 mg tablet 100 mg PO BID 09/27/20 08/24/22 History aspirin 81 mg tablet,delayed 81 mg PO QDAY 09/27/20 08/24/22 History release (Adult Aspirin Regimen) levothyroxine 75 mcg tablet 75 mcg PO QAM 09/27/20 08/24/22 History (Euthyrox) atorvastatin 20 mg tablet 20 mg PO QDAY 10/29/20 08/24/22 History hydralazine 10 mg tablet 10 mg PO BID 10/29/20 08/24/22 History Novolin 70-30 FlexPen U-100 90 units subcut TID 06/30/22 08/24/22 History famotidine 40 mg tablet 1 tab PO QDAY heartburn 06/30/22 08/23/22 History magnesium oxide 400 mg (241.3 mg 1 tab PO BID 06/30/22 08/24/22 History magnesium) tablet metoprolol succinate 100 mg 2 tab PO QDAY 06/30/22 08/24/22 History tablet,extended release 24 hr albuterol sulfate 90 mcg/actuation 2 puff inhalation Q6H PRN 08/23/22 08/24/22 History aerosol inhaler (Ventolin HFA) Shortness Of Breath amlodipine 10 mg tablet 10 mg PO DAILY 08/23/22 08/24/22 History cholecalciferol (vitamin D3) 50 150 mcg PO QHS 08/23/22 08/24/22 History mcg (2,000 unit) tablet divalproex 500 mg tablet,extended 500 mg PO BID 08/23/22 08/24/22 History release 24 hr duloxetine 30 mg capsule,delayed 60 mg PO QHS 08/23/22 08/24/22 History release semaglutide 1 mg/dose (2 mg/1.5 1 mg subcut WEEKLY 08/23/22 08/24/22 History mL) subcutaneous pen injector (Ozempic) valsartan 160 mg tablet 1 tab PO DAILY 08/23/22 08/24/22 History Allergies Allergy/AdvReac Type Severity Reaction Status Date / Time chlorhexidine Allergy Mild Rash Verified 08/23/22 16:04 [From Hibiclens] lisinopril AdvReac Mild DEVIN Cough Verified 08/23/22 16:04 Physical Examination Vital Signs Vital signs: Temp Pulse Resp BP Pulse Ox O2 Del Method O2 Flow Rate 100.6 F H 94 H 16 165/85 96 2 08/26/22 04:01 08/26/22 06:18 08/26/22 06:18 08/26/22 04:01 08/26/22 09:00 08/26/22 09:00 08/26/22 06:18 Constitutional General appearance: no acute distress and alert Musculoskeletal Musculoskeletal: other (Left foot lateral open wound. There is mild erythema surrounding the wound. The ankle ROM is diminished) Results Laboratory Findings CBC and BMP: 08/26/22 05:04 08/26/22 05:04 Abnormal lab findings: Abnormal Labs 08/23/22 08/23/22 08/23/22 16:15 16:15 16:15 WBC RBC Hgb Hct POC Hct Immature Gran % (Auto) 0.7 H Neut % (Auto) 85.9 H Lymph % (Auto) 6.0 L Lymph # (Auto) 0.65 L [place] # (Auto) Band Neutrophils % Lymphocytes % Immature Gran # 0.08 H Absolute Neutrophils 9.27 H POC VBG pH POC VBG pCO2 at Temp POC VBG pO2 POC VBG HCO3 POC VBG Total CO2 POC Venous O2 Sat VBG Lactic Acid Sodium Carbon Dioxide POC BUN BUN Creatinine POC Creatinine Glucose POC Glucose Hemoglobin A1c Calcium POC WB Ioniz Calcium C-Reactive Protein 2.70 H Total Protein Albumin Globulin Triglycerides Procalcitonin 0.24 H CSF RBC CSF Glucose 08/23/22 08/23/22 08/23/22 16:42 16:43 18:35 WBC RBC Hgb Hct POC Hct 39.0 L Immature Gran % (Auto) Neut % (Auto) Lymph % (Auto) Lymph # (Auto) [place] # (Auto) Band Neutrophils % Lymphocytes % Immature Gran # Absolute Neutrophils POC VBG pH 7.51 H POC VBG pCO2 at Temp 29.7 L POC VBG pO2 56 H POC VBG HCO3 23.6 L POC VBG Total CO2 24.0 L POC Venous O2 Sat 92.0 H VBG Lactic Acid 2.1 H Sodium Carbon Dioxide POC BUN 33 H BUN Creatinine POC Creatinine 2.2 H Glucose POC Glucose 235 H Hemoglobin A1c Calcium POC WB Ioniz Calcium 1.11 L C-Reactive Protein Total Protein Albumin Globulin Triglycerides Procalcitonin CSF RBC 7 H CSF Glucose 167 H* 08/24/22 08/24/22 08/25/22 05:35 05:35 07:44 WBC 13.2 H 13.1 H RBC 4.43 L 4.04 L Hgb 13.1 L 11.9 L Hct 38.2 L 36.0 L POC Hct Immature Gran % (Auto) 0.7 H Neut % (Auto) Lymph % (Auto) 14.6 L Lymph # (Auto) [place] # (Auto) 1.14 H Band Neutrophils % 19 H Lymphocytes % 8 L Immature Gran # 0.09 H Absolute Neutrophils 9.92 H POC VBG pH POC VBG pCO2 at Temp POC VBG pO2 POC VBG HCO3 POC VBG Total CO2 POC Venous O2 Sat VBG Lactic Acid Sodium Carbon Dioxide POC BUN BUN 27 H Creatinine 2.4 H POC Creatinine Glucose 251 H POC Glucose Hemoglobin A1c 10.9 H Calcium 8.1 L POC WB Ioniz Calcium C-Reactive Protein Total Protein 5.5 L Albumin Globulin 2.1 L Triglycerides 400 H Procalcitonin CSF RBC CSF Glucose 08/25/22 08/26/22 08/26/22 07:44 05:04 05:04 WBC RBC 4.06 L Hgb 11.9 L Hct 34.9 L POC Hct Immature Gran % (Auto) 0.8 H Neut % (Auto) Lymph % (Auto) 13.7 L Lymph # (Auto) [place] # (Auto) 1.07 H Band Neutrophils % Lymphocytes % Immature Gran # 0.09 H Absolute Neutrophils 8.12 H POC VBG pH POC VBG pCO2 at Temp POC VBG pO2 POC VBG HCO3 POC VBG Total CO2 POC Venous O2 Sat VBG Lactic Acid Sodium 131 L Carbon Dioxide 21 L 21 L POC BUN BUN 35 H 40 H Creatinine 2.6 H 2.2 H POC Creatinine Glucose 300 H 201 H POC Glucose Hemoglobin A1c Calcium 7.8 L 8.3 L POC WB Ioniz Calcium C-Reactive Protein Total Protein 5.3 L 5.2 L Albumin 2.9 L 2.9 L Globulin Triglycerides 377 H 398 H Procalcitonin CSF RBC CSF Glucose Microbiology: Microbiology 08/25/22 09:48 Blood Blood Culture - Preliminary 08/25/22 09:42 Blood Blood Culture - Preliminary 08/24/22 17:15 Foot - Left Anaerobic Culture - Preliminary 08/24/22 17:15 Foot - Left Gram Stain - Preliminary 08/24/22 17:15 Foot - Left Anaerobic Culture - Preliminary 08/24/22 17:15 Bone - Foot Tissue Culture - Preliminary Staphylococcus aureus 08/24/22 17:15 Foot - Left Gram Stain - Preliminary 08/24/22 17:15 Foot - Left Wound Culture - Preliminary Staphylococcus aureus 08/23/22 16:15 Blood Blood Culture - Preliminary Staphylococcus aureus 08/23/22 16:30 Blood Blood Culture - Preliminary Staphylococcus aureus 08/24/22 03:19 Nose MRSA (PCR) - Final 08/23/22 18:35 Cerebral Spinal Fluid - Cerebral Spinal Fluid Gram Stain - Final Diagnostic Findings Chest x-ray: image reviewed A/P Narrative A/P Narrative: 57 yo with DM, CKD, previous left ankle fractures with hardware now with S aureus septicemia, foot infection, s/p exostectomy of the 5th metatarsal. He appears to have endocarditis as well. He will need 6 week of IV antibiotics to treat the endocarditis. This would also treat the OM/septic arthritis of the ankle as well (assuming that it is also staph aureus). However, if he does have ankle infection, with the retained hardware infection will relapse. To resolve this question, a 3 phase bone scan would be helpful. This can be done as an outpatient. Once the susceptibilities are resulted, will give antibiotic choice recommendation He will need IV abx for 6 weeks and if there is OM, then po antibiotic suppressive therapy until after the hardware is removed. Will follow Time Spent With Patient Time: Total time spent is greater than 50% in coordination of care (as documented) at patient's floor/unit and/or counseling patient: Total time spent with greater than 50% in coordination of care (as documented) at patient's floor/unit and/or counseling patient:: 25 - 35 minutes Critical Care Time: No
--- NOTE | 2022-08-26 13:16 | Internal Med Progress Note ---
SUBJECTIVE Subjective Patient information: Note initiated : 08/26/22 at 1:08 pm Service Date, if different from initiated Date: [] Patient: Jose Alfredo Hernández 57 y/o M admitted on 08/23/22 for Left Foot Irrigation & Debridement, Exostectomy,. Chief Complaint: [] Interval history: Mr. Hernández is a 57 year old male with a history of hypertension, hyperlipidemia, insulin dependent diabetes mellitus complicated by neuropathy and diabetic foot wounds, prior left tibiotalar joint arthrodesis , CKD stage 3, possible seizure disorder, BARRY and obesity who was sent to [facility] ED from the ED in [place] for concern for osteomyelitis. At the [facility] ED, the patient was noted to have a fluctuant, red and tender ulcer on the lateral aspect of his left foot. There is also a infected appearing wound top of a left toe. The patient was febrile and tachycardic in the emergency department. A CT of his left lower extremity with contrast showed changes in the left ankle arthrodesis area concerning for possible septic arthritis. The patient was started on broad-spectrum antibiotics. Hospital medicine was asked to admit the patient with orthopedic surgery consulted for operative repair. History was taken from the patient's at bedside as the patient is unable to provide a history due to altered mental status. 08/25 Yesterday evening, podiatry took the patient to the OR for a left foot I&D, left fifth metatarsal exostectomy. There was evidence of osteomyelitis of the fifth metatarsal. Specimens were sent for culture. Discussed with podiatry, Dr. Shakeel Rodriguez, who felt that he was able to remove the infected bone entirely. He does not feel like the hardware in the left ankle is involved in this infection. The patient had elevated temperatures fevers overnight however fever trend has improved since admission. Blood cultures are growing gram-positive cocci in 2 out of 2 bottles. Repeat blood cultures obtained. Transthoracic echocardiogram ordered. Renal function has slightly worsened since yesterday, the patient is beginning to develop volume overload with bilateral lower extremity edema therefore we will discontinue IV antibiotics and follow renal function. The patient likely has acute tubular necrosis secondary to sepsis. Increased Lantus and started prandial Humalog, continued Humalog SSI. The patient is alert and oriented this morning, able to engage in conversation. 08/26 Patient is on room air, patient had a high-grade temperatures and fevers overnight but significantly improved since admission. Leukocytosis has resolved. Star blood cultures are showing no growth to date after 1 day. Awaiting antibiotic sensitivities for blood and surgical cultures which are growing staph aureus. Transthoracic echocardiogram showed a LVEF of 45 to 50%, severe concentric left ventricular hypertrophy. There was a focal nodular density on the 9 coronary cost of uncertain etiology. Renal function improving, 1 dose of Lasix IV 40 mg today. We will follow-up renal function tomorrow if it continues to improve will continue with IV Lasix for diuresis as the patient is somewhat volume overloaded from IV fluid received for sepsis at presentation. Discontinued cefepime and Flagyl, continue vancomycin IV pending antibiotic sensitivities. Infectious disease consulted. Physical exam Head: Atraumatic, normal inspection. Eyes: normal appearance, no scleral icterus. Neck: full ROM Respiratory: no respiratory distress. Cardiovascular: normal rate and rhythm, S1, S2. GI/Abdominal: soft, nontender, no guarding. Extremities: Left foot surgical incision covered with clean bandage, bilateral lower extremity pitting edema up to mid hong. Neurological: CN II-XII intact, intact motor, intact sensation. Psychiatric: normal mood. Skin: warm, normal color Constitutional Vitals: Vital Signs Temp Pulse Resp BP Pulse Ox O2 Del Method O2 Flow Rate 97.7 F 84 19 139/85 97 2 08/26/22 12:47 08/26/22 12:47 08/26/22 12:47 08/26/22 12:47 08/26/22 12:47 08/26/22 12:47 08/26/22 06:18 Period Temp Pulse Resp BP Sys/[place] Pulse Ox O2 Del Method O2 Flow Rate Last 24 Hr 97.4 F-100.6 F 80-94 16-27 137-180/79-91 87-97 Oxymask-Room Air 0-2 Intake and Output 08/25/22 08/26/22 08/26/22 21:59 05:59 13:59 Intake Total 1140 300 20 Output Total 850 1050 425 Balance 290 -750 -405 Intake & Output: Intake & Output 08/25/22 08/26/22 08/26/22 21:59 05:59 13:59 Intake Total 1140 300 20 Output Total 850 1050 425 Balance 290 -750 -405 Intake: IV 100 100 Oral 1040 200 IV - Manual Only 20 Output: Void Amount 850 1050 425 Other: Meal Dinner Breakfast Percent of Meal Consumed 75% 100% Feeding Ability Independent Independent Urine Appearance Clear Clear Clear Urine Color Dark Yellow Dark Yellow Yellow Urine Odor Strong Normal OBJ DATA Labs CBC & Chem 7: 08/26/22 05:04 08/26/22 05:04 Labs: Abnormal Lab Results 08/26/22 08/26/22 08/25/22 05:04 05:04 07:44 WBC RBC 4.06 L Hgb 11.9 L Hct 34.9 L POC Hct Immature Gran % (Auto) 0.8 H Neut % (Auto) Lymph % (Auto) 13.7 L Lymph # (Auto) [place] # (Auto) 1.07 H Band Neutrophils % Lymphocytes % Immature Gran # 0.09 H Absolute Neutrophils 8.12 H POC VBG pH POC VBG pCO2 at Temp POC VBG pO2 POC VBG HCO3 POC VBG Total CO2 POC Venous O2 Sat VBG Lactic Acid Sodium 131 L Carbon Dioxide 21 L 21 L POC BUN BUN 40 H 35 H Creatinine 2.2 H 2.6 H POC Creatinine Glucose 201 H 300 H POC Glucose Hemoglobin A1c Calcium 8.3 L 7.8 L POC WB Ioniz Calcium C-Reactive Protein Total Protein 5.2 L 5.3 L Albumin 2.9 L 2.9 L Globulin Triglycerides 398 H 377 H Procalcitonin CSF RBC CSF Glucose 08/25/22 08/24/22 08/24/22 07:44 05:35 05:35 WBC 13.1 H 13.2 H RBC 4.04 L 4.43 L Hgb 11.9 L 13.1 L Hct 36.0 L 38.2 L POC Hct Immature Gran % (Auto) 0.7 H Neut % (Auto) Lymph % (Auto) 14.6 L Lymph # (Auto) [place] # (Auto) 1.14 H Band Neutrophils % 19 H Lymphocytes % 8 L Immature Gran # 0.09 H Absolute Neutrophils 9.92 H POC VBG pH POC VBG pCO2 at Temp POC VBG pO2 POC VBG HCO3 POC VBG Total CO2 POC Venous O2 Sat VBG Lactic Acid Sodium Carbon Dioxide POC BUN BUN 27 H Creatinine 2.4 H POC Creatinine Glucose 251 H POC Glucose Hemoglobin A1c 10.9 H Calcium 8.1 L POC WB Ioniz Calcium C-Reactive Protein Total Protein 5.5 L Albumin Globulin 2.1 L Triglycerides 400 H Procalcitonin CSF RBC CSF Glucose 08/23/22 08/23/22 08/23/22 18:35 16:43 16:42 WBC RBC Hgb Hct POC Hct 39.0 L Immature Gran % (Auto) Neut % (Auto) Lymph % (Auto) Lymph # (Auto) [place] # (Auto) Band Neutrophils % Lymphocytes % Immature Gran # Absolute Neutrophils POC VBG pH 7.51 H POC VBG pCO2 at Temp 29.7 L POC VBG pO2 56 H POC VBG HCO3 23.6 L POC VBG Total CO2 24.0 L POC Venous O2 Sat 92.0 H VBG Lactic Acid 2.1 H Sodium Carbon Dioxide POC BUN 33 H BUN Creatinine POC Creatinine 2.2 H Glucose POC Glucose 235 H Hemoglobin A1c Calcium POC WB Ioniz Calcium 1.11 L C-Reactive Protein Total Protein Albumin Globulin Triglycerides Procalcitonin CSF RBC 7 H CSF Glucose 167 H* 08/23/22 08/23/22 08/23/22 16:15 16:15 16:15 WBC RBC Hgb Hct POC Hct Immature Gran % (Auto) 0.7 H Neut % (Auto) 85.9 H Lymph % (Auto) 6.0 L Lymph # (Auto) 0.65 L [place] # (Auto) Band Neutrophils % Lymphocytes % Immature Gran # 0.08 H Absolute Neutrophils 9.27 H POC VBG pH POC VBG pCO2 at Temp POC VBG pO2 POC VBG HCO3 POC VBG Total CO2 POC Venous O2 Sat VBG Lactic Acid Sodium Carbon Dioxide POC BUN BUN Creatinine POC Creatinine Glucose POC Glucose Hemoglobin A1c Calcium POC WB Ioniz Calcium C-Reactive Protein 2.70 H Total Protein Albumin Globulin Triglycerides Procalcitonin 0.24 H CSF RBC CSF Glucose Meds: Medications Acetaminophen (Acetaminophen 325 Mg Tablet) 650 mg PO Q6HP PRN; Protocol PRN Reason: Per Pain Protocol/Fever > 101 Last Admin: 08/24/22 12:14 Dose: 650 mg Hydrocodone Bitart/Acetaminophen (Hydrocodone/Apap 5/325mg Tablet) 1 tab PO Q4HP PRN; Protocol PRN Reason: Per Pain Protocol Last Admin: 08/26/22 09:32 Dose: 1 tab Albuterol Sulfate (Albuterol Sulfate 200 Puff Inhaler) 2 puff INH Q6HP PRN PRN Reason: Shortness Of Breath Allopurinol (Allopurinol 100 Mg Tablet) 100 mg PO BID REPLACED BY [facility] Last Admin: 08/26/22 09:34 Dose: 100 mg Amlodipine Besylate (Amlodipine 10 Mg Tablet) 10 mg PO DAILY REPLACED BY [facility] Last Admin: 08/26/22 09:36 Dose: 10 mg Aspirin (Aspirin 81 Mg Tab.Chew) 81 mg PO DAILY REPLACED BY [facility] Last Admin: 08/26/22 09:28 Dose: 81 mg Atorvastatin Calcium (Atorvastatin 20 Mg Tablet) 20 mg PO QDAY REPLACED BY [facility] Last Admin: 08/26/22 09:31 Dose: 20 mg Dextrose (Dextrose 50% 50 Ml Vial) 0 ml IV UD PRN PRN Reason: Per Sliding Scale Diagnostic Test (Pha) (Accu-Chek 1 Each Strip) 1 each FS ACHS REPLACED BY [facility] Last Admin: 08/26/22 11:43 Dose: 1 each Divalproex Sodium (Divalproex Sodium 250 Mg Tablet) 500 mg PO BID REPLACED BY [facility] Last Admin: 08/26/22 09:30 Dose: 500 mg Docusate Sodium (Docusate Sodium 100 Mg Capsule) 100 mg PO BID REPLACED BY [facility] Last Admin: 08/26/22 09:29 Dose: 100 mg Duloxetine HCl (Duloxetine 30 Mg Capsule) 60 mg PO QHS REPLACED BY [facility] Last Admin: 08/25/22 21:03 Dose: 60 mg Famotidine (Famotidine 20 Mg Tablet) 40 mg PO DAILY REPLACED BY [facility] Last Admin: 08/26/22 09:29 Dose: 40 mg Glucose (Dextrose 31 Gm Oral.Susp) 15 gm PO PRN PRN PRN Reason: Hypoglycemia Heparin Sodium (Porcine) (Heparin 5,000 Unit/Ml Vial) 5,000 unit SQ Q12 REPLACED BY [facility] Last Admin: 08/26/22 09:35 Dose: 5,000 unit Hydralazine HCl (Hydralazine 10 Mg Tablet) 10 mg PO BID REPLACED BY [facility] Last Admin: 08/26/22 09:36 Dose: 10 mg Hydralazine HCl (Hydralazine 20 Mg/Ml Vial) 10 mg IV Q2HP PRN PRN Reason: Hypertension Hydromorphone HCl (Hydromorphone 0.5 Mg/0.5 Ml Syringe) 0.5 mg IV Q2HP PRN; Protocol PRN Reason: Per Pain Protocol Last Admin: 08/25/22 14:09 Dose: 0.5 mg Insulin Glargine (Insulin Glargine, Human 1 Unit/0.01 Ml) 40 unit SQ HS REPLACED BY [facility] Insulin Human Lispro (Insulin Lispro 1 Unit/0.01 Ml Unit) 0 unit SQ ACHS REPLACED BY [facility]; Protocol Last Admin: 08/26/22 12:39 Dose: 12 units Insulin Human Lispro (Insulin Lispro 1 Unit/0.01 Ml Unit) 15 unit SQ AC REPLACED BY [facility] Last Admin: 08/26/22 12:41 Dose: 15 unit Labetalol HCl (Labetalol 5 Mg/Ml Ml) 10 mg IV Q2HP PRN PRN Reason: Hypertension Last Admin: 08/25/22 20:35 Dose: 10 mg Levothyroxine Sodium (Levothyroxine 75 Mcg Tablet) 75 mcg PO QAM REPLACED BY [facility] Last Admin: 08/26/22 07:35 Dose: 75 mcg Metoprolol Succinate (Metoprolol Succinate 50 Mg Tab.Xl.24h) 200 mg PO DAILY REPLACED BY [facility] Last Admin: 08/26/22 09:28 Dose: 200 mg Ondansetron HCl (Ondansetron 4 Mg/2 Ml Vial) 4 mg IV Q6HP PRN PRN Reason: Nausea And Vomiting Senna (Sennosides 1 Tablet) 2 tab PO HS REPLACED BY [facility] Last Admin: 08/25/22 21:03 Dose: 2 tab Sodium Chloride (0.9 % Sodium Chloride 10 Ml Syringe) 10 ml IV Q8 REPLACED BY [facility] Last Admin: 08/26/22 05:46 Dose: 10 ml Vancomycin HCl (Vancomycin Per Pharmacy) 1 order IV UD REPLACED BY [facility]; Protocol A/P Narrative A/P Narrative: Assessment: 57 year old male with a history of hypertension, hyperlipidemia, insulin dependent diabetes mellitus complicated by neuropathy and diabetic foot wounds, prior left tibiotalar joint arthrodesis , CKD stage 3, possible seizure disorder, BARRY and obesity who was sent to [facility] ED from the ED in [place] for concern for osteomyelitis. There was no CT scan capability there at the time. The patient is admitted to [facility] for severe sepsis complicated by acute kidney injury and acute hypoxic respiratory failure secondary to staph aureus bacteremia secondary to a diabetic foot infection complicated by osteomyelitis of the fifth metatarsal. The patient underwent I&D and resection of the infected bone on 08/24/2022. #Resolving severe sepsis due staff aureus bacteremia secondary to diabetic foot wound complicated by fifth metatarsal osteomyelitis status post I&D and resection 08/24/2022 #Acute on chronic kidney disease stage 3 injury due to sepsis #Resolved acute hypoxic respiratory failure likely secondary to CHF and sepsis #Resolved encephalopathy secondary to sepsis #Insulin dependent diabetes mellitus #Essential hypertension #Hyperlipidemia #History of diabetic foot wounds #Possible seizure disorder #Obstructive sleep apnea #Obesity BMI 34 #History of left tibiotalar joint arthrodesis complicated by nonunion Plan -Vancomycin IV per pharmacy, discontinued cefepime and Flagyl. -Follow all blood and surgical cultures. -Will need PICC line when blood cultures showing no growth to date for 48 to 72 hours. -Lasix 40 mg IV once today, monitor renal function, urine output and volume status. -Analgesics as needed, avoid NSAIDs. -Lantus 30 units HS, prandial Humalog 115 units, and SSI-high dose for now. -Continue home allopurinol, aspirin, atorvastatin, Depakote, Cymbalta, Norvasc, Pepcid. -Holding home losartan for CHIKA, and Ozempic while inpatient. -Infectious disease consult. -Podiatry consulted. -Consistent carbohydrate diet. -PT consult. -CPAP at bedtime -CODE STATUS: Full -DVT prophylaxis: Heparin SQ -Disposition: Probably home when stable, dissipating 4 weeks of IV antibiotics via PICC line for staph aureus bacteremia. Follow-up with orthopedic surgery as planned for revision of left tibial talar joint arthrodesis. Time Spent With Patient Time: Total time spent is greater than 50% in coordination of care (as documented) at patient's floor/unit and/or counseling patient: QUALITY VTE Deep Vein Thrombosis/Pulmonary Embolism Present on Admission: No
[2022-08-26] MEDS ORDERED: VANCOMYCIN 1,500 MG in 0.9 % SODIUM CHLORIDE 500 ML IV ONE (13:30)
[2022-08-26] MEDS: SENNOSIDES 1 TABLET PO SCH (20:18)
[2022-08-26] MEDS: DULoxetine 30 MG CAPSULE PO SCH (20:19)
[2022-08-26] MEDS ORDERED: INSULIN GLARGINE, HUMAN 1 UNIT/0.01 ML SQ SCH (21:00)
[2022-08-26] MEDS: LABETALOL 5 MG/ML ML IV PRN (22:08)
[2022-08-26] MEDS: hydrALAZINE 20 MG/ML VIAL IV PRN (23:03)
[2022-08-27] MEDS: LABETALOL 5 MG/ML ML IV PRN ×4 (00:04→21:11)
[2022-08-27] MEDS: hydrALAZINE 20 MG/ML VIAL IV PRN ×3 (01:12→18:02)
[2022-08-27] MEDS: 0.9 % SODIUM CHLORIDE 10 ML SYRINGE IV SCH ×3 (05:45→21:12)
[2022-08-27 06:20] LABS: Basophils # (Auto) 0.03 K/mcL (0.00-0.30); Basophils % (Auto) 0.3 % (0.0-2.0); Eosinophils # (Auto) 0.04 K/mcL (0.00-0.70); Eosinophils % (Auto) 0.4 % (0.0-7.0); Hematocrit 31.9 % (40.1-51.0); Lymphocytes # (Auto) 1.13 K/mcL (1.50-4.80); Lymphocytes % (Auto) 11.3 % (15.5-49.0); Mean Cell Volume 85.8 fL (80.0-100.0); Mean Corpuscular HGB Conc 34.5 g/dL (31.0-36.0); Mean Platelet Volume 11.2 fL (8.8-12.5); Monocytes # (Auto) 1.17 K/mcL (0.10-0.90); Monocytes % (Auto) 11.7 % (1.0-12.0); Neutrophils % (Auto) 74.7 % (38.0-78.0); Platelet Count 164 K/mcL (140-440); RBC 3.72 M/mcL (4.63-6.08); Red Cell Distribution Width 12.7 % (11.5-14.5)
[2022-08-27 07:13] LABS: ALT/SGPT 19 U/L (<40); AST/SGOT 23 U/L (<40); Albumin 2.7 gm/dL (3.2-5.2); Albumin/Globulin Ratio 1.1 (1.0-2.3); Alkaline Phosphatase 84 U/L (39-117); Bilirubin,Direct < 0.2 mg/dL (0-0.3); Bilirubin,Total 0.3 mg/dL (0.1-1.0); Blood Urea Nitrogen 35 mg/dL (6-20); Calcium 8.5 mg/dL (8.6-10.4); Carbon Dioxide 21 mmol/L (22-30); Chloride 97 mmol/L (96-108); Globulin 2.5 gm/dL (2.2-3.7); Glomerular Filtration Rate 34; Glucose 241 mg/dL (70-105); Lactate Dehydrogenase 219 U/L (135-225); Phosphorous 3.6 mg/dL (2.5-4.5); Triglycerides 317 mg/dL (<150); Uric Acid 5.6 mg/dL (2.5-8.0)
[2022-08-27] MEDS ORDERED: ceFAZolin 2 GM in DEXTROSE 5% IN WATER 50 ML IV SCH (08:15)
--- NOTE | 2022-08-27 08:23 | Event Note ---
Event Note Event Note: Blood culture with MSSA. Antibiotics changed to cefazolin. Keep on cefazolin for 6 weeks from last day of positive blood culture. Weekly monitoring CBC, CMP, ESR, CRP Patient will need follow up echo at 6 weeks. If possible PETER as outpatient. Bone scan as outpatient If bone scan is positive, consider debridement/removal of hardware/biopsy for culture to rule out other pathogen besides MSSA. If only MSSA, then after completion of cefazolin, can use doxycycline 100 mg po BID for suppressive therapy until hardware is removed. Will sign off. Please call for any clarification or further assistance Thank you .
[2022-08-27] MEDS ORDERED: FUROSEMIDE 40 MG/4 ML VIAL IV ONE ×2 (09:28→15:44)
[2022-08-27] MEDS: INSULIN LISPRO 1 UNIT/0.01 ML UNIT SQ SCH ×8 (10:20→20:55)
[2022-08-27] MEDS: ceFAZolin 1 GM VIAL IV SCH ×3 (10:21→21:12)
[2022-08-27] MEDS: HEPARIN 5,000 UNIT/ML VIAL SQ SCH ×2 (10:21→20:54)
[2022-08-27] MEDS: DOCUSATE SODIUM 100 MG CAPSULE PO SCH ×2 (10:22→20:55)
[2022-08-27] MEDS: DIVALPROEX SODIUM 250 MG TABLET PO SCH ×2 (10:22→20:54)
[2022-08-27] MEDS: amLODIPine 10 MG TABLET PO SCH (10:22)
[2022-08-27] MEDS: hydrALAZINE 10 MG TABLET PO SCH ×2 (10:23→20:55)
[2022-08-27] MEDS: ASPIRIN 81 MG TAB.CHEW PO SCH (10:23)
[2022-08-27] MEDS: FAMOTIDINE 20 MG TABLET PO SCH (10:23)
[2022-08-27] MEDS: ALLOPURINOL 100 MG TABLET PO SCH ×2 (10:23→20:55)
[2022-08-27] MEDS: ATORVASTATIN 20 MG TABLET PO SCH (10:23)
[2022-08-27] MEDS: LEVOTHYROXINE 75 MCG TABLET PO SCH (10:23)
[2022-08-27] MEDS: METOPROLOL SUCCINATE 50 MG TAB.XL.24H PO SCH (10:23)
--- NOTE | 2022-08-27 10:57 | Internal Med Progress Note ---
SUBJECTIVE Subjective Patient information: Note initiated : 08/27/22 at 10:55 am Service Date, if different from initiated Date: [] Patient: Jose Alfredo Hernández 57 y/o M admitted on 08/23/22 for Left Foot Irrigation & Debridement, Exostectomy,. Chief Complaint: [] Interval history: Mr. Hernández is a 57 year old male with a history of hypertension, hyperlipidemia, insulin dependent diabetes mellitus complicated by neuropathy and diabetic foot wounds, prior left tibiotalar joint arthrodesis , CKD stage 3, possible seizure disorder, BARRY and obesity who was sent to [facility] ED from the ED in [place] for concern for osteomyelitis. At the [facility] ED, the patient was noted to have a fluctuant, red and tender ulcer on the lateral aspect of his left foot. There is also a infected appearing wound top of a left toe. The patient was febrile and tachycardic in the emergency department. A CT of his left lower extremity with contrast showed changes in the left ankle arthrodesis area concerning for possible septic arthritis. The patient was started on broad-spectrum antibiotics. Hospital medicine was asked to admit the patient with orthopedic surgery consulted for operative repair. History was taken from the patient's at bedside as the patient is unable to provide a history due to altered mental status. 08/25 Yesterday evening, podiatry took the patient to the OR for a left foot I&D, left fifth metatarsal exostectomy. There was evidence of osteomyelitis of the fifth metatarsal. Specimens were sent for culture. Discussed with podiatry, Dr. Shakeel Rodriguez, who felt that he was able to remove the infected bone entirely. He does not feel like the hardware in the left ankle is involved in this infection. The patient had elevated temperatures fevers overnight however fever trend has improved since admission. Blood cultures are growing gram-positive cocci in 2 out of 2 bottles. Repeat blood cultures obtained. Transthoracic echocardiogram ordered. Renal function has slightly worsened since yesterday, the patient is beginning to develop volume overload with bilateral lower extremity edema therefore we will discontinue IV antibiotics and follow renal function. The patient likely has acute tubular necrosis secondary to sepsis. Increased Lantus and started prandial Humalog, continued Humalog SSI. The patient is alert and oriented this morning, able to engage in conversation. 08/26 Patient is on room air, patient had a high-grade temperatures and fevers overnight but significantly improved since admission. Leukocytosis has resolved. [place] blood cultures are showing no growth to date after 1 day. Awaiting antibiotic sensitivities for blood and surgical cultures which are growing staph aureus. Transthoracic echocardiogram showed a LVEF of 45 to 50%, severe concentric left ventricular hypertrophy. There was a focal nodular density on the 9 coronary cost of uncertain etiology. Renal function improving, 1 dose of Lasix IV 40 mg today. We will follow-up renal function tomorrow if it continues to improve will continue with IV Lasix for diuresis as the patient is somewhat volume overloaded from IV fluid received for sepsis at presentation. Discontinued cefepime and Flagyl, continue vancomycin IV pending antibiotic sensitivities. Infectious disease consulted. 08/27 Infectious disease consulted yesterday, recommended 6 weeks of IV antibiotics. Staff aureus cultures resulted for MSSA, discontinued vancomycin IV and started cefazolin. Thoracic echocardiogram shows a focal nodular density on the noncoronary cusp, presumably of the aortic valve however not specifically mentioned, that infectious disease feels is concerning for infectious endocarditis. Infectious disease also feels the patient needs to be on oral suppressive antibiotic therapy until the hardware is removed from the patient's left ankle. Patient's renal function continues to improve, will give 1 dose of Lasix IV today. Glucose elevated, increased Lantus to 50 units at bedtime, prandial Humalog to 18 units AC and continued correction Humalog SSIhigh dose. [place] blood culture showing no growth at 48 hours, will wait for ID to decide on timing for PICC line but could probably be placed by tomorrow if blood cultures continue to show no growth. Blood pressure elevated overnight, continuing IV as needed medications. Holding home valsartan due to CHIKA. Physical exam Head: Atraumatic, normal inspection. Eyes: normal appearance, no scleral icterus. Neck: full ROM Respiratory: no respiratory distress. Cardiovascular: normal rate and rhythm, S1, S2. GI/Abdominal: soft, nontender, no guarding. Extremities: Left foot surgical incision covered with clean bandage, bilateral lower extremity pitting edema up to mid hong. Neurological: CN II-XII intact, intact motor, intact sensation. Psychiatric: normal mood. Skin: warm, normal color Constitutional Vitals: Vital Signs Temp Pulse Resp BP Pulse Ox O2 Del Method O2 Flow Rate 97.7 F 88 20 164/79 93 4 08/27/22 08:01 08/27/22 10:05 08/27/22 10:05 08/27/22 10:05 08/27/22 10:05 08/27/22 10:05 08/27/22 06:01 Period Temp Pulse Resp BP Sys/[place] Pulse Ox O2 Del Method O2 Flow Rate Last 24 Hr 97.3 F-98.1 F 84-99 14-27 128-210/62-100 92-98 CPAP-Room Air 4-4 Intake and Output 08/26/22 08/27/22 08/27/22 21:59 05:59 13:59 Intake Total 1500 450 480 Output Total 1225 550 550 Balance 275 -100 -70 Intake & Output: Intake & Output 08/26/22 08/27/22 08/27/22 21:59 05:59 13:59 Intake Total 1500 450 480 Output Total 1225 550 550 Balance 275 -100 -70 Intake: IV 500 Vancomycin 1,500 mg In Sodium 500 Chloride 0.9% 500 ml @ 333.3 mls/hr IV ONCE ONE Rx#: [id number] Oral 1000 450 480 Output: Urine Catheter Amount 425 Void Amount 800 550 550 Other: Meal Dinner Breakfast Percent of Meal Consumed 25% 100% Feeding Ability Independent Assist with Tray Set Up Urine Appearance Clear Clear Urine Color Yellow Bright Yellow Light [place] Urine Odor Normal OBJ DATA Labs CBC & Chem 7: 08/27/22 04:56 08/27/22 04:56 Labs: Abnormal Lab Results 08/27/22 08/27/22 08/26/22 04:56 04:56 05:04 WBC RBC 3.72 L Hgb 11.0 L Hct 31.9 L Immature Gran % (Auto) 1.6 H Lymph % (Auto) 11.3 L Lymph # (Auto) 1.13 L [place] # (Auto) 1.17 H Immature Gran # 0.16 H Absolute Neutrophils Sodium Carbon Dioxide 21 L 21 L BUN 35 H 40 H Creatinine 2.1 H 2.2 H Glucose 241 H 201 H Calcium 8.5 L 8.3 L Total Protein 5.2 L 5.2 L Albumin 2.7 L 2.9 L Triglycerides 317 H 398 H 08/26/22 08/25/22 08/25/22 05:04 07:44 07:44 WBC 13.1 H RBC 4.06 L 4.04 L Hgb 11.9 L 11.9 L Hct 34.9 L 36.0 L Immature Gran % (Auto) 0.8 H 0.7 H Lymph % (Auto) 13.7 L 14.6 L Lymph # (Auto) [place] # (Auto) 1.07 H 1.14 H Immature Gran # 0.09 H 0.09 H Absolute Neutrophils 8.12 H 9.92 H Sodium 131 L Carbon Dioxide 21 L BUN 35 H Creatinine 2.6 H Glucose 300 H Calcium 7.8 L Total Protein 5.3 L Albumin 2.9 L Triglycerides 377 H Meds: Medications Acetaminophen (Acetaminophen 325 Mg Tablet) 650 mg PO Q6HP PRN; Protocol PRN Reason: Per Pain Protocol/Fever > 101 Last Admin: 08/24/22 12:14 Dose: 650 mg Hydrocodone Bitart/Acetaminophen (Hydrocodone/Apap 5/325mg Tablet) 1 tab PO Q4HP PRN; Protocol PRN Reason: Per Pain Protocol Last Admin: 08/26/22 17:31 Dose: 1 tab Albuterol Sulfate (Albuterol Sulfate 200 Puff Inhaler) 2 puff INH Q6HP PRN PRN Reason: Shortness Of Breath Allopurinol (Allopurinol 100 Mg Tablet) 100 mg PO BID [facility] Last Admin: 08/27/22 10:23 Dose: 100 mg Amlodipine Besylate (Amlodipine 10 Mg Tablet) 10 mg PO DAILY [facility] Last Admin: 08/27/22 10:22 Dose: 10 mg Aspirin (Aspirin 81 Mg Tab.Chew) 81 mg PO DAILY [facility] Last Admin: 08/27/22 10:23 Dose: 81 mg Atorvastatin Calcium (Atorvastatin 20 Mg Tablet) 20 mg PO QDAY [facility] Last Admin: 08/27/22 10:23 Dose: 20 mg Cefazolin Sodium (Cefazolin 1 Gm Vial) 2 gm IV Q8H [facility] Last Admin: 08/27/22 10:21 Dose: 2 gm Dextrose (Dextrose 50% 50 Ml Vial) 0 ml IV UD PRN PRN Reason: Per Sliding Scale Diagnostic Test (Pha) (Accu-Chek 1 Each Strip) 1 each FS ACHS [facility] Last Admin: 08/27/22 08:21 Dose: 1 each Divalproex Sodium (Divalproex Sodium 250 Mg Tablet) 500 mg PO BID [facility] Last Admin: 08/27/22 10:22 Dose: 500 mg Docusate Sodium (Docusate Sodium 100 Mg Capsule) 100 mg PO BID [facility] Last Admin: 08/27/22 10:22 Dose: 100 mg Duloxetine HCl (Duloxetine 30 Mg Capsule) 60 mg PO QHS [facility] Last Admin: 08/26/22 20:19 Dose: 60 mg Famotidine (Famotidine 20 Mg Tablet) 40 mg PO DAILY [facility] Last Admin: 08/27/22 10:23 Dose: 40 mg Glucose (Dextrose 31 Gm Oral.Susp) 15 gm PO PRN PRN PRN Reason: Hypoglycemia Heparin Sodium (Porcine) (Heparin 5,000 Unit/Ml Vial) 5,000 unit SQ Q12 [facility] Last Admin: 08/27/22 10:21 Dose: 5,000 unit Hydralazine HCl (Hydralazine 10 Mg Tablet) 10 mg PO BID [facility] Last Admin: 08/27/22 10:23 Dose: 10 mg Hydralazine HCl (Hydralazine 20 Mg/Ml Vial) 10 mg IV Q2HP PRN PRN Reason: Hypertension Last Admin: 08/27/22 01:12 Dose: 10 mg Hydromorphone HCl (Hydromorphone 0.5 Mg/0.5 Ml Syringe) 0.5 mg IV Q2HP PRN; Protocol PRN Reason: Per Pain Protocol Last Admin: 08/25/22 14:09 Dose: 0.5 mg Insulin Glargine (Insulin Glargine, Human 1 Unit/0.01 Ml) 50 unit SQ HS [facility] Insulin Human Lispro (Insulin Lispro 1 Unit/0.01 Ml Unit) 0 unit SQ ACHS [facility]; Protocol Last Admin: 08/27/22 10:20 Dose: 12 units Insulin Human Lispro (Insulin Lispro 1 Unit/0.01 Ml Unit) 18 unit SQ AC [facility] Last Admin: 08/27/22 10:20 Dose: 18 units Labetalol HCl (Labetalol 5 Mg/Ml Ml) 10 mg IV Q2HP PRN PRN Reason: Hypertension Last Admin: 08/27/22 00:04 Dose: 10 mg Levothyroxine Sodium (Levothyroxine 75 Mcg Tablet) 75 mcg PO QAM [facility] Last Admin: 08/27/22 10:23 Dose: 75 mcg Metoprolol Succinate (Metoprolol Succinate 50 Mg Tab.Xl.24h) 200 mg PO DAILY [facility] Last Admin: 10/20/22 10:23 Dose: 200 mg Ondansetron HCl (Ondansetron 4 Mg/2 Ml Vial) 4 mg IV Q6HP PRN PRN Reason: Nausea And Vomiting Polyethylene Glycol (Polyethylene Glycol 3350 17 Gm Packet) 17 gm PO DAILY [facility] Senna (Sennosides 1 Tablet) 2 tab PO HS [facility] Last Admin: 08/26/22 20:18 Dose: 2 tab Sodium Chloride (0.9 % Sodium Chloride 10 Ml Syringe) 10 ml IV Q8 [facility] Last Admin: 08/27/22 05:45 Dose: 10 ml A/P Narrative A/P Narrative: Assessment: 57 year old male with a history of hypertension, hyperlipidemia, insulin dependent diabetes mellitus complicated by neuropathy and diabetic foot wounds, prior left tibiotalar joint arthrodesis , CKD stage 3, possible seizure disorder, BARRY and obesity who was sent to [facility] ED from the ED in [place] for concern for osteomyelitis. There was no CT scan capability there at the time. The patient is admitted to [facility] for severe sepsis complicated by acute kidney injury and acute hypoxic respiratory failure secondary to MSSA complicated by probable aortic valve endocarditis secondary to a diabetic foot infection and osteomyelitis of the fifth metatarsal. The patient underwent I&D and resection of the infected bone on 08/24/2022. #Resolving severe sepsis due MSSA secondary to diabetic foot wound complicated by fifth metatarsal osteomyelitis status post I&D and resection 08/24/2022 #Probable infectious endocarditis of [place] aortic valve #Acute on chronic kidney disease stage 3 injury due to sepsis #Resolved acute hypoxic respiratory failure likely secondary to CHF and sepsis #Resolved encephalopathy secondary to sepsis #Insulin dependent diabetes mellitus #Essential hypertension #Hyperlipidemia #History of diabetic foot wounds #Possible seizure disorder #Obstructive sleep apnea #Obesity BMI 34 #History of left tibiotalar joint arthrodesis complicated by nonunion Plan -Cefazolin 2 mg IV every 8 hours, discontinue IV vancomycin. -Follow all blood and surgical cultures. -Will need PICC line when blood cultures showing no growth to date for 48 to 72 hours. -Lasix 40 mg IV once today, monitor renal function, urine output and volume status. -Analgesics as needed, avoid NSAIDs. -Lantus 50 units HS, prandial Humalog 18 units, and SSI-high dose for now. -Continue home allopurinol, aspirin, atorvastatin, Depakote, Cymbalta, Norvasc, Pepcid. -Holding home losartan for CHIKA, and Ozempic while inpatient. -Infectious disease consult. -Podiatry consulted. -Consistent carbohydrate diet. -PT consult. -CPAP at bedtime -CODE STATUS: Full -DVT prophylaxis: Heparin SQ -Disposition: Probably home when stable, anticipating 6 weeks of IV antibiotics via PICC line for staph aureus bacteremia followed by indefinite oral antibiotic suppressive therapy until hardware removed from left ankle. Follow-up with orthopedic surgery as planned for probable hardware removal and revision of left tibial table joint arthrodesis. Time Spent With Patient Time: Total time spent is greater than 50% in coordination of care (as documented) at patient's floor/unit and/or counseling patient: QUALITY VTE Deep Vein Thrombosis/Pulmonary Embolism Present on Admission: No
[2022-08-27] MEDS: POLYETHYLENE GLYCOL 3350 17 GM PACKET PO SCH (12:15)
--- NOTE | 2022-08-27 14:28 | Internal Med Progress Note ---
SUBJECTIVE Subjective Patient information: Note initiated : 08/27/22 at 2:19 pm Service Date, if different from initiated Date: [] Patient: Jose Alfredo Hernández 57 y/o M admitted on 08/23/22 for Left Foot Irrigation & Debridement, Exostectomy,. Chief Complaint: [] Interval history: Mr. Hernández is a 57 year old male with a history of hypertension, hyperlipidemia, insulin dependent diabetes mellitus complicated by neuropathy and diabetic foot wounds, prior left tibiotalar joint arthrodesis , CKD stage 3, possible seizure disorder, BARRY and obesity who was sent to [facility] ED from the ED in [place] for concern for osteomyelitis. At the [facility] ED, the patient was noted to have a fluctuant, red and tender ulcer on the lateral aspect of his left foot. There is also a infected appearing wound top of a left toe. The patient was febrile and tachycardic in the emergency department. A CT of his left lower extremity with contrast showed changes in the left ankle arthrodesis area concerning for possible septic arthritis. The patient was started on broad-spectrum antibiotics. Hospital medicine was asked to admit the patient with orthopedic surgery consulted for operative repair. History was taken from the patient's at bedside as the patient is unable to provide a history due to altered mental status. 08/25 Yesterday evening, podiatry took the patient to the OR for a left foot I&D, left fifth metatarsal exostectomy. There was evidence of osteomyelitis of the fifth metatarsal. Specimens were sent for culture. Discussed with podiatry, Dr. Shakeel Rodriguez, who felt that he was able to remove the infected bone entirely. He does not feel like the hardware in the left ankle is involved in this infection. The patient had elevated temperatures fevers overnight however fever trend has improved since admission. Blood cultures are growing gram-positive cocci in 2 out of 2 bottles. Repeat blood cultures obtained. Transthoracic echocardiogram ordered. Renal function has slightly worsened since yesterday, the patient is beginning to develop volume overload with bilateral lower extremity edema therefore we will discontinue IV antibiotics and follow renal function. The patient likely has acute tubular necrosis secondary to sepsis. Increased Lantus and started prandial Humalog, continued Humalog SSI. The patient is alert and oriented this morning, able to engage in conversation. 08/26 Patient is on room air, patient had a high-grade temperatures and fevers overnight but significantly improved since admission. Leukocytosis has resolved. [place] blood cultures are showing no growth to date after 1 day. Awaiting antibiotic sensitivities for blood and surgical cultures which are growing staph aureus. Transthoracic echocardiogram showed a LVEF of 45 to 50%, severe concentric left ventricular hypertrophy. There was a focal nodular density on the 9 coronary cost of uncertain etiology. Renal function improving, 1 dose of Lasix IV 40 mg today. We will follow-up renal function tomorrow if it continues to improve will continue with IV Lasix for diuresis as the patient is somewhat volume overloaded from IV fluid received for sepsis at presentation. Discontinued cefepime and Flagyl, continue vancomycin IV pending antibiotic sensitivities. Infectious disease consulted. 08/27 Infectious disease consulted yesterday, recommended 6 weeks of IV antibiotics. Staff aureus cultures resulted for MSSA, discontinued vancomycin IV and started cefazolin. Thoracic echocardiogram shows a focal nodular density on the n oncoronary cusp, presumably of the aortic valve however not specifically mentioned, that infectious disease feels is concerning for infectious endocarditis. Infectious disease also feels the patient needs to be on oral suppressive antibiotic therapy until the hardware is removed from the patient's left ankle. Patient's renal function continues to improve, will give 1 dose of Lasix IV today. Glucose elevated, increased Lantus to 50 units at bedtime, prandial Humalog to 18 units AC and continued correction Humalog SSIhigh dose. [place] blood culture showing no growth at 48 hours, will wait for ID to decide on timing for PICC line but could probably be placed by tomorrow if blood cultures continue to show no growth. Blood pressure elevated overnight, continuing IV as needed medications. Holding home valsartan due to CHIKA. 08/28 Constitutional Vitals: Vital Signs Temp Pulse Resp BP Pulse Ox O2 Del Method O2 Flow Rate 98.1 F 83 17 180/90 93 4 08/27/22 12:00 08/27/22 14:05 08/27/22 14:05 08/27/22 14:05 08/27/22 14:05 08/27/22 14:05 08/27/22 06:01 Period Temp Pulse Resp BP Sys/[place] Pulse Ox O2 Del Method O2 Flow Rate Last 24 Hr 97.3 F-98.1 F 83-99 15-27 128-210/62-100 92-99 CPAP-Room Air 4-4 Intake and Output 08/27/22 08/27/22 08/27/22 05:59 13:59 21:59 Intake Total 450 880 Output Total 550 1075 Balance -100 -195 Intake & Output: Intake & Output 08/27/22 08/27/22 08/27/22 05:59 13:59 21:59 Intake Total 450 880 Output Total 550 1075 Balance -100 -195 Intake: Oral 450 880 Output: Void Amount 550 1075 Other: Meal Breakfast Percent of Meal Consumed 100% Feeding Ability Assist with Tray Set Up Urine Appearance Clear Clear Urine Color Bright Yellow Yellow Exam: General: Alert, Awake, No acute Distress, obese Eyes/N/T: EOMI, Head/Neck: neck supple, CV: RRR, No murmurs, Pulm: Clear b/l, no wheezing/rhonchi/rales Abd: soft, nontender, +BS x4 Ext: Left foot surgical incision covered with clean bandage, bilateral lower extremity pitting edema up to mid hong. Neuro: Alert, no focal deficits, moves all extremities, Skin: warm/dry OBJ DATA Labs CBC & Chem 7: 08/27/22 04:56 08/27/22 04:56 Labs: Abnormal Lab Results 08/27/22 08/27/22 08/26/22 04:56 04:56 05:04 WBC RBC 3.72 L Hgb 11.0 L Hct 31.9 L Immature Gran % (Auto) 1.6 H Lymph % (Auto) 11.3 L Lymph # (Auto) 1.13 L [place] # (Auto) 1.17 H Immature Gran # 0.16 H Absolute Neutrophils Sodium Carbon Dioxide 21 L 21 L BUN 35 H 40 H Creatinine 2.1 H 2.2 H Glucose 241 H 201 H Calcium 8.5 L 8.3 L Total Protein 5.2 L 5.2 L Albumin 2.7 L 2.9 L Triglycerides 317 H 398 H 08/26/22 08/25/22 08/25/22 05:04 07:44 07:44 WBC 13.1 H RBC 4.06 L 4.04 L Hgb 11.9 L 11.9 L Hct 34.9 L 36.0 L Immature Gran % (Auto) 0.8 H 0.7 H Lymph % (Auto) 13.7 L 14.6 L Lymph # (Auto) [place] # (Auto) 1.07 H 1.14 H Immature Gran # 0.09 H 0.09 H Absolute Neutrophils 8.12 H 9.92 H Sodium 131 L Carbon Dioxide 21 L BUN 35 H Creatinine 2.6 H Glucose 300 H Calcium 7.8 L Total Protein 5.3 L Albumin 2.9 L Triglycerides 377 H Meds: Medications Acetaminophen (Acetaminophen 325 Mg Tablet) 650 mg PO Q6HP PRN; Protocol PRN Reason: Per Pain Protocol/Fever > 101 Last Admin: 08/24/22 12:14 Dose: 650 mg Hydrocodone Bitart/Acetaminophen (Hydrocodone/Apap 5/325mg Tablet) 1 tab PO Q4HP PRN; Protocol PRN Reason: Per Pain Protocol Last Admin: 08/26/22 17:31 Dose: 1 tab Albuterol Sulfate (Albuterol Sulfate 200 Puff Inhaler) 2 puff INH Q6HP PRN PRN Reason: Shortness Of Breath Allopurinol (Allopurinol 100 Mg Tablet) 100 mg PO BID [facility] Last Admin: 08/27/22 10:23 Dose: 100 mg Amlodipine Besylate (Amlodipine 10 Mg Tablet) 10 mg PO DAILY [facility] Last Admin: 08/27/22 10:22 Dose: 10 mg Aspirin (Aspirin 81 Mg Tab.Chew) 81 mg PO DAILY [facility] Last Admin: 08/27/22 10:23 Dose: 81 mg Atorvastatin Calcium (Atorvastatin 20 Mg Tablet) 20 mg PO QDAY [facility] Last Admin: 08/27/22 10:23 Dose: 20 mg Cefazolin Sodium (Cefazolin 1 Gm Vial) 2 gm IV Q8H [facility] Last Admin: 08/27/22 10:21 Dose: 2 gm Dextrose (Dextrose 50% 50 Ml Vial) 0 ml IV UD PRN PRN Reason: Per Sliding Scale Diagnostic Test (Pha) (Accu-Chek 1 Each Strip) 1 each FS ACHS [facility] Last Admin: 08/27/22 12:08 Dose: 1 each Divalproex Sodium (Divalproex Sodium 250 Mg Tablet) 500 mg PO BID [facility] Last Admin: 08/27/22 10:22 Dose: 500 mg Docusate Sodium (Docusate Sodium 100 Mg Capsule) 100 mg PO BID [facility] Last Admin: 08/27/22 10:22 Dose: 100 mg Duloxetine HCl (Duloxetine 30 Mg Capsule) 60 mg PO QHS [facility] Last Admin: 08/26/22 20:19 Dose: 60 mg Famotidine (Famotidine 20 Mg Tablet) 40 mg PO DAILY [facility] Last Admin: 08/27/22 10:23 Dose: 40 mg Glucose (Dextrose 31 Gm Oral.Susp) 15 gm PO PRN PRN PRN Reason: Hypoglycemia Heparin Sodium (Porcine) (Heparin 5,000 Unit/Ml Vial) 5,000 unit SQ Q12 [facility] Last Admin: 08/27/22 10:21 Dose: 5,000 unit Hydralazine HCl (Hydralazine 10 Mg Tablet) 10 mg PO BID [facility] Last Admin: 08/27/22 10:23 Dose: 10 mg Hydralazine HCl (Hydralazine 20 Mg/Ml Vial) 10 mg IV Q2HP PRN PRN Reason: Hypertension Last Admin: 08/27/22 01:12 Dose: 10 mg Hydromorphone HCl (Hydromorphone 0.5 Mg/0.5 Ml Syringe) 0.5 mg IV Q2HP PRN; Protocol PRN Reason: Per Pain Protocol Last Admin: 08/25/22 14:09 Dose: 0.5 mg Insulin Glargine (Insulin Glargine, Human 1 Unit/0.01 Ml) 50 unit SQ HS [facility] Insulin Human Lispro (Insulin Lispro 1 Unit/0.01 Ml Unit) [facility]; Protocol Last Admin: 08/27/22 12:15 Dose: 15 units Insulin Human Lispro (Insulin Lispro 1 Unit/0.01 Ml Unit) 18 unit SQ AC [facility] Last Admin: 08/27/22 12:14 Dose: 18 units Labetalol HCl (Labetalol 5 Mg/Ml Ml) 10 mg IV Q2HP PRN PRN Reason: Hypertension Last Admin: 08/27/22 14:12 Dose: 10 mg Levothyroxine Sodium (Levothyroxine 75 Mcg Tablet) 75 mcg PO QAM [facility] Last Admin: 08/27/22 10:23 Dose: 75 mcg Metoprolol Succinate (Metoprolol Succinate 50 Mg Tab.Xl.24h) 200 mg PO DAILY [facility] Last Admin: 08/27/22 10:23 Dose: 200 mg Ondansetron HCl (Ondansetron 4 Mg/2 Ml Vial) 4 mg IV Q6HP PRN PRN Reason: Nausea And Vomiting Polyethylene Glycol (Polyethylene Glycol 3350 17 Gm Packet) 17 gm PO DAILY [facility] Last Admin: 08/27/22 12:15 Dose: 17 gm Senna (Sennosides 1 Tablet) 2 tab PO HS [facility] Last Admin: 08/26/22 20:18 Dose: 2 tab Sodium Chloride (0.9 % Sodium Chloride 10 Ml Syringe) 10 ml IV Q8 [facility] Last Admin: 08/27/22 12:15 Dose: 10 ml A/P Narrative A/P Narrative: A: #Severe sepsis: 2/2 MSSA 2/2 diabetic foot wound/osteomyelitis #Left foot cellulitis/osteomyelitis 5th MT: s/p I&D w/resection (08/24) #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 (see ID note from 08/27/2022) -Follow all blood and surgical cultures. -Will need PICC line when blood cultures showing no growth to date for 48 to 72 hours. -Lasix 40 mg IV once today, monitor renal function, urine output and volume status. -avoid nephrotoxic meds -Lantus 50u qhs, prandial Humalog 18 units, and SSI-high -Continue home allopurinol, aspirin, atorvastatin, Depakote, Cymbalta, Norvasc, Pepcid -Holding home losartan for CHIKA, and Ozempic while inpatient -Infectious disease following -Podiatry following -PT consult -CPAP at bedtime -prophylaxis: Heparin SQ / H2 -Disposition: Probably home when stable, anticipating 6 weeks of IV antibiotics via PICC line for staph aureus bacteremia followed by indefinite oral antibiotic suppressive therapy until hardware removed from left ankle. Follow-up with orthopedic surgery as planned for probable hardware removal and revision of left tibial table joint arthrodesis. F/U with ID. 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
[2022-08-27] MEDS ORDERED: ALBUMIN HUMAN 12.5 GM/50 ML BAG IV ONE (15:44)
[2022-08-27] MEDS ORDERED: cloNIDine HCL 0.1 MG TABLET PO SCH (15:45)
[2022-08-27] MEDS: ONDANSETRON 4 MG/2 ML VIAL IV PRN (18:03)
[2022-08-27] MEDS: HYDROcodone/APAP 5/325MG TABLET PO PRN (20:37)
[2022-08-27] MEDS: SENNOSIDES 1 TABLET PO SCH (20:55)
[2022-08-27] MEDS: DULoxetine 30 MG CAPSULE PO SCH (20:55)
[2022-08-27] MEDS: INSULIN GLARGINE, HUMAN 1 UNIT/0.01 ML SQ SCH (20:56)
[2022-08-28] MEDS: hydrALAZINE 20 MG/ML VIAL IV PRN ×4 (00:26→23:36)
[2022-08-28] MEDS: LABETALOL 5 MG/ML ML IV PRN (04:26)
[2022-08-28] MEDS: ceFAZolin 1 GM VIAL IV SCH ×3 (05:12→22:29)
[2022-08-28] MEDS: 0.9 % SODIUM CHLORIDE 10 ML SYRINGE IV SCH ×5 (05:12→22:31)
[2022-08-28 06:53] LABS: ALT/SGPT 21 U/L (<40); AST/SGOT 30 U/L (<40); Albumin 2.6 gm/dL (3.2-5.2); Alkaline Phosphatase 98 U/L (39-117); Bilirubin,Direct < 0.2 mg/dL (0-0.3); Bilirubin,Total 0.3 mg/dL (0.1-1.0); Blood Urea Nitrogen 43 mg/dL (6-20); Carbon Dioxide 24 mmol/L (22-30); Chloride 97 mmol/L (96-108); Globulin 2.5 gm/dL (2.2-3.7); Glomerular Filtration Rate 36; Glucose 215 mg/dL (70-105); Lactate Dehydrogenase 189 U/L (135-225); Phosphorous 4.8 mg/dL (2.5-4.5); Triglycerides 282 mg/dL (<150); Uric Acid 6.1 mg/dL (2.5-8.0)
--- NOTE | 2022-08-28 07:34 | Internal Med Progress Note ---
SUBJECTIVE Subjective Patient information: Note initiated : 08/28/22 at 7:29 am Service Date, if different from initiated Date: [] Patient: Jose Alfredo Hernández 57 y/o M admitted on 08/23/22 for Left Foot Irrigation & Debridement, Exostectomy,. Chief Complaint: [] Interval history: Mr. Hernández is a 57 year old male with a history of hypertension, hyperlipidemia, insulin dependent diabetes mellitus complicated by neuropathy and diabetic foot wounds, prior left tibiotalar joint arthrodesis , CKD stage 3, possible seizure disorder, BARRY and obesity who was sent to [facility] ED from the ED in [place] for concern for osteomyelitis. At the [facility] ED, the patient was noted to have a fluctuant, red and tender ulcer on the lateral aspect of his left foot. There is also a infected appearing wound top of a left toe. The patient was febrile and tachycardic in the emergency department. A CT of his left lower extremity with contrast showed changes in the left ankle arthrodesis area concerning for possible septic arthritis. The patient was started on broad-spectrum antibiotics. Hospital medicine was asked to admit the patient with orthopedic surgery consulted for operative repair. History was taken from the patient's at bedside as the patient is unable to provide a history due to altered mental status. 08/25 Yesterday evening, podiatry took the patient to the OR for a left foot I&D, left fifth metatarsal exostectomy. There was evidence of osteomyelitis of the fifth metatarsal. Specimens were sent for culture. Discussed with podiatry, Dr. Shakeel Rodriguez, who felt that he was able to remove the infected bone entirely. He does not feel like the hardware in the left ankle is involved in this infection. The patient had elevated temperatures fevers overnight however fever trend has improved since admission. Blood cultures are growing gram-positive cocci in 2 out of 2 bottles. Repeat blood cultures obtained. Transthoracic echocardiogram ordered. Renal function has slightly worsened since yesterday, the patient is beginning to develop volume overload with bilateral lower extremity edema therefore we will discontinue IV antibiotics and follow renal function. The patient likely has acute tubular necrosis secondary to sepsis. Increased Lantus and started prandial Humalog, continued Humalog SSI. The patient is alert and oriented this morning, able to engage in conversation. 08/26 Patient is on room air, patient had a high-grade temperatures and fevers overnight but significantly improved since admission. Leukocytosis has resolved. [place] blood cultures are showing no growth to date after 1 day. Awaiting antibiotic sensitivities for blood and surgical cultures which are growing staph aureus. Transthoracic echocardiogram showed a LVEF of 45 to 50%, severe concentric left ventricular hypertrophy. There was a focal nodular density on the 9 coronary cost of uncertain etiology. Renal function improving, 1 dose of Lasix IV 40 mg today. We will follow-up renal function tomorrow if it continues to improve will continue with IV Lasix for diuresis as the patient is somewhat volume overloaded from IV fluid received for sepsis at presentation. Discontinued cefepime and Flagyl, continue vancomycin IV pending antibiotic sensitivities. Infectious disease consulted. 08/27 Infectious disease consulted yesterday, recommended 6 weeks of IV antibiotics. Staff aureus cultures resulted for MSSA, discontinued vancomycin IV and started cefazolin. Thoracic echocardiogram shows a focal nodular density on the n oncoronary cusp, presumably of the aortic valve however not specifically mentioned, that infectious disease feels is concerning for infectious endocarditis. Infectious disease also feels the patient needs to be on oral suppressive antibiotic therapy until the hardware is removed from the patient's left ankle. Patient's renal function continues to improve, will give 1 dose of Lasix IV today. Glucose elevated, increased Lantus to 50 units at bedtime, prandial Humalog to 18 units AC and continued correction Humalog SSIhigh dose. [place] blood culture showing no growth at 48 hours, will wait for ID to decide on timing for PICC line but could probably be placed by tomorrow if blood cultures continue to show no growth. Blood pressure elevated overnight, continuing IV as needed medications. Holding home valsartan due to CHIKA. 08/28 Patient refusing CPAP at night. Groggy in the morning per nurse. No new complaints this morning. Blood glucose still elevated will need to adjust insulin regimen. Blood pressure elevated, adjust meds Review of Systems: denies headache/fever/chills/nausea/vomiting/chest or abdominal pain/cough/dyspnea/diarrhea. Otherwise see above. Constitutional Vitals: Vital Signs Temp Pulse Resp BP Pulse Ox O2 Del Method O2 Flow Rate 97.1 F 87 22 146/84 97 0 08/28/22 04:01 08/28/22 02:01 08/28/22 06:01 08/28/22 06:01 08/28/22 06:01 08/28/22 06:01 08/27/22 15:25 Period Temp Pulse Resp BP Sys/[place] Pulse Ox O2 Del Method O2 Flow Rate Last 24 Hr 97.1 F-98.6 F 83-97 14-27 138-195/69-98 90-100 CPAP-Room Air 0-0 Intake and Output 08/27/22 08/28/22 08/28/22 21:59 05:59 13:59 Intake Total 770 240 Output Total 1225 550 Balance -455 -310 Weight 132.766 kg Intake & Output: Intake & Output 08/27/22 08/28/22 08/28/22 21:59 05:59 13:59 Intake Total 770 240 Output Total 1225 550 Balance -455 -310 Weight 132.766 kg Intake: IV 50 Oral 720 240 Output: Void Amount 1225 550 Other: Meal Dinner Percent of Meal Consumed 50% Feeding Ability Assist with Tray Set Up Urine Appearance Clear Clear Urine Color Yellow Dark Yellow Exam: General: Alert, Awake, No acute Distress, obese Eyes/N/T: EOMI, Head/Neck: neck supple, CV: RRR, No murmurs, Pulm: Clear b/l, no wheezing/rhonchi/rales Abd: soft, nontender, +BS x4 Ext: Left foot surgical incision covered with clean bandage, LLE edema 2+ Neuro: Alert, no focal deficits, moves all extremities, Skin: warm/dry OBJ DATA Labs CBC & Chem 7: 08/27/22 04:56 08/28/22 04:55 Labs: Abnormal Lab Results 08/28/22 08/27/22 08/27/22 04:55 04:56 04:56 WBC RBC 3.72 L Hgb 11.0 L Hct 31.9 L Immature Gran % (Auto) 1.6 H Lymph % (Auto) 11.3 L Lymph # (Auto) 1.13 L [place] # (Auto) 1.17 H Immature Gran # 0.16 H Absolute Neutrophils Sodium Carbon Dioxide 21 L BUN 43 H 35 H Creatinine 2.0 H 2.1 H Glucose 215 H 241 H Calcium 8.5 L Phosphorus 4.8 H Total Protein 5.1 L 5.2 L Albumin 2.6 L 2.7 L Triglycerides 282 H 317 H 10/08/26/22 08/25/22 05:04 05:04 07:44 WBC RBC 4.06 L Hgb 11.9 L Hct 34.9 L Immature Gran % (Auto) 0.8 H Lymph % (Auto) 13.7 L Lymph # (Auto) [place] # (Auto) 1.07 H Immature Gran # 0.09 H Absolute Neutrophils 8.12 H Sodium 131 L Carbon Dioxide 21 L 21 L BUN 40 H 35 H Creatinine 2.2 H 2.6 H Glucose 201 H 300 H Calcium 8.3 L 7.8 L Phosphorus Total Protein 5.2 L 5.3 L Albumin 2.9 L 2.9 L Triglycerides 398 H 377 H 08/25/22 07:44 WBC 13.1 H RBC 4.04 L Hgb 11.9 L Hct 36.0 L Immature Gran % (Auto) 0.7 H Lymph % (Auto) 14.6 L Lymph # (Auto) [place] # (Auto) 1.14 H Immature Gran # 0.09 H Absolute Neutrophils 9.92 H Sodium Carbon Dioxide BUN Creatinine Glucose Calcium Phosphorus Total Protein Albumin Triglycerides Meds: Medications Acetaminophen (Acetaminophen 325 Mg Tablet) 650 mg PO Q6HP PRN; Protocol PRN Reason: Per Pain Protocol/Fever > 101 Last Admin: 08/24/22 12:14 Dose: 650 mg Hydrocodone Bitart/Acetaminophen (Hydrocodone/Apap 5/325mg Tablet) 1 tab PO Q4HP PRN; Protocol PRN Reason: Per Pain Protocol Last Admin: 08/27/22 20:37 Dose: 1 tab Albuterol Sulfate (Albuterol Sulfate 200 Puff Inhaler) 2 puff INH Q6HP PRN PRN Reason: Shortness Of Breath Allopurinol (Allopurinol 100 Mg Tablet) 100 mg PO BID [facility] Last Admin: 08/27/22 20:55 Dose: 100 mg Amlodipine Besylate (Amlodipine 10 Mg Tablet) 10 mg PO DAILY [facility] Last Admin: 08/27/22 10:22 Dose: 10 mg Aspirin (Aspirin 81 Mg Tab.Chew) 81 mg PO DAILY [facility] Last Admin: 08/27/22 10:23 Dose: 81 mg Atorvastatin Calcium (Atorvastatin 20 Mg Tablet) 20 mg PO QDAY [facility] Last Admin: 08/27/22 10:23 Dose: 20 mg Cefazolin Sodium (Cefazolin 1 Gm Vial) 2 gm IV Q8H [facility] Last Admin: 08/28/22 05:12 Dose: 2 gm Dextrose (Dextrose 50% 50 Ml Vial) 0 ml IV UD PRN PRN Reason: Per Sliding Scale Diagnostic Test (Pha) (Accu-Chek 1 Each Strip) 1 each FS ACHS [facility] Last Admin: 08/27/22 20:56 Dose: 1 each Divalproex Sodium (Divalproex Sodium 250 Mg Tablet) 500 mg PO BID [facility] Last Admin: 08/27/22 20:54 Dose: 500 mg Docusate Sodium (Docusate Sodium 100 Mg Capsule) 100 mg PO BID [facility] Last Admin: 08/27/22 20:55 Dose: 100 mg Duloxetine HCl (Duloxetine 30 Mg Capsule) 60 mg PO QHS [facility] Last Admin: 08/27/22 20:55 Dose: 60 mg Famotidine (Famotidine 20 Mg Tablet) 40 mg PO DAILY [facility] Last Admin: 08/27/22 10:23 Dose: 40 mg Glucose (Dextrose 31 Gm Oral.Susp) 15 gm PO PRN PRN PRN Reason: Hypoglycemia Heparin Sodium (Porcine) (Heparin 5,000 Unit/Ml Vial) 5,000 unit SQ Q12 [facility] Last Admin: 08/27/22 20:54 Dose: 5,000 unit Hydralazine HCl (Hydralazine 10 Mg Tablet) 10 mg PO BID [facility] Last Admin: 08/27/22 20:55 Dose: 10 mg Hydralazine HCl (Hydralazine 20 Mg/Ml Vial) 0 mg IV Q2HP PRN PRN Reason: Hypertension Last Admin: 08/28/22 00:26 Dose: 20 mg Hydromorphone HCl (Hydromorphone 0.5 Mg/0.5 Ml Syringe) 0.5 mg IV Q2HP PRN; Protocol PRN Reason: Per Pain Protocol Last Admin: 08/25/22 14:09 Dose: 0.5 mg Insulin Glargine (Insulin Glargine, Human 1 Unit/0.01 Ml) 50 unit SQ HS [facility] Last Admin: 08/27/22 20:56 Dose: 50 unit Insulin Human Lispro (Insulin Lispro 1 Unit/0.01 Ml Unit) 0 unit SQ ACHS [facility]; Protocol Last Admin: 08/27/22 20:55 Dose: 9 units Insulin Human Lispro (Insulin Lispro 1 Unit/0.01 Ml Unit) 18 unit SQ AC [facility] Last Admin: 08/27/22 17:29 Dose: 18 units Labetalol HCl (Labetalol 5 Mg/Ml Ml) 0 mg IV Q2HP PRN PRN Reason: Hypertension Last Admin: 08/28/22 04:26 Dose: 10 mg Levothyroxine Sodium (Levothyroxine 75 Mcg Tablet) 75 mcg PO QAM [facility] Last Admin: 08/27/22 10:23 Dose: 75 mcg Metoprolol Succinate (Metoprolol Succinate 50 Mg Tab.Xl.24h) 200 mg PO DAILY [facility] Last Admin: 08/27/22 10:23 Dose: 200 mg Ondansetron HCl (Ondansetron 4 Mg/2 Ml Vial) 4 mg IV Q6HP PRN PRN Reason: Nausea And Vomiting Last Admin: 08/27/22 18:03 Dose: 4 mg Polyethylene Glycol (Polyethylene Glycol 3350 17 Gm Packet) 17 gm PO DAILY [facility] Last Admin: 08/27/22 12:15 Dose: 17 gm Senna (Sennosides 1 Tablet) 2 tab PO HS [facility] Last Admin: 08/27/22 20:55 Dose: 2 tab Sodium Chloride (0.9 % Sodium Chloride 10 Ml Syringe) 10 ml IV Q8 [facility] Last Admin: 08/28/22 05:12 Dose: 10 ml A/P Narrative A/P Narrative: A: #Severe sepsis: 2/2 MSSA 2/2 diabetic foot wound/osteomyelitis #Left foot cellulitis/osteomyelitis 5th MT: s/p I&D w/resection (08/24) #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 (see ID note from 08/27/2022) -Follow all blood and surgical cultures. -PICC line -prn Lasix, monitor renal function, urine output and volume status. -avoid nephrotoxic meds -Lantus 50u qhs and add 10qam, prandial Humalog 18 units, and SSI-high -cont home norvasc/Toprol/hydralazine(increase) -Continue home aspirin/atorvastatin, Depakote, Cymbalta -Holding home losartan for CHIKA, and Ozempic while inpatient -Infectious disease signing off -Podiatry following -PT consult -CPAP at bedtime, refuses at atimes -prophylaxis: Heparin SQ / H2 -Disposition: Probably home when stable, anticipating 6 weeks of IV antibiotics via PICC line for staph aureus bacteremia followed by indefinite oral antibiotic suppressive therapy until hardware removed from left ankle. Follow-up with orthopedic surgery as planned for probable hardware removal and revision of left tibial table joint arthrodesis. 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
[2022-08-28] MEDS: INSULIN LISPRO 1 UNIT/0.01 ML UNIT SQ SCH ×7 (08:51→20:51)
[2022-08-28] MEDS: METOPROLOL SUCCINATE 50 MG TAB.XL.24H PO SCH (08:52)
[2022-08-28] MEDS: ATORVASTATIN 20 MG TABLET PO SCH (08:52)
[2022-08-28] MEDS: POLYETHYLENE GLYCOL 3350 17 GM PACKET PO SCH (08:52)
[2022-08-28] MEDS: ALLOPURINOL 100 MG TABLET PO SCH ×2 (08:52→20:38)
[2022-08-28] MEDS: FAMOTIDINE 20 MG TABLET PO SCH (08:52)
[2022-08-28] MEDS: ASPIRIN 81 MG TAB.CHEW PO SCH (08:52)
[2022-08-28] MEDS: amLODIPine 10 MG TABLET PO SCH (08:52)
[2022-08-28] MEDS: HEPARIN 5,000 UNIT/ML VIAL SQ SCH ×2 (08:52→20:37)
[2022-08-28] MEDS: hydrALAZINE 10 MG TABLET PO SCH ×4 (08:52→20:38)
[2022-08-28] MEDS: DIVALPROEX SODIUM 250 MG TABLET PO SCH ×2 (08:53→20:38)
[2022-08-28] MEDS: LEVOTHYROXINE 75 MCG TABLET PO SCH (08:53)
[2022-08-28] MEDS: DOCUSATE SODIUM 100 MG CAPSULE PO SCH ×2 (08:53→20:38)
[2022-08-28] MEDS ORDERED: INSULIN GLARGINE, HUMAN 1 UNIT/0.01 ML SQ SCH (09:00)
[2022-08-28] MEDS ORDERED: 0.9 % SODIUM CHLORIDE 10 ML SYRINGE IV PRN (10:14)
[2022-08-28] MEDS ORDERED: FUROSEMIDE 40 MG/4 ML VIAL IV ONE (10:15)
[2022-08-28] MEDS ORDERED: ALBUMIN HUMAN 12.5 GM/50 ML BAG IV ONE (10:15)
[2022-08-28] MEDS ORDERED: METOPROLOL SUCCINATE 50 MG TAB.XL.24H PO ONE (10:24)
--- NOTE | 2022-08-28 11:27 | Discharge Summary ---
Discharge Provider Provider IMPORTANT FOLLOW-UP INFORMATION FOR PCP: f/u with ID upon discharge. [Per ID>weekly monitoring CBC, CMP, ESR, CRP while on IV abx, send labs to PCP/Podiatry/Infectious disease. Patient will need follow up echo at 6 weeks. Bone scan as outpatient. If bone scan is positive, consider debridement/removal of hardware/biopsy for culture to rule out other pathogen besides MSSA. If only MSSA, then after completion of cefazolin, can use doxycycline 100 mg po BID for suppressive therapy until hardware is removed.] PICC line care while PICC line in place and d/c when finish cefazolin on 10/05/2022. Referral to see orthopedic surgery and 1 to 2 weeks for evenual hardware removal Patient to monitor blood glucose 3 times a day before meals, keep log and bring to PCP. Monitor blood pressure twice daily, keep log, and bring to PCP. Patient information: Note initiated : 08/28/22 at 11:22 am Service Date, if different from initiated Date: [] Patient: Jose Alfredo Hernández 57 y/o M admitted on 08/23/22 for Left Foot Irrigation & Debridement, Exostectomy,. Chief Complaint: [] Date of admission: 08/23/22 23:29 Discharge date: 08/31/22 Primary care physician: Jakub De La Garza Consults: 08/23/22 Consult to Physician [CONS] Stat Comment: Consulting Provider: Kishor Bernal Reason For Exam: Physician to Consult Consult to Physician [CONS] Stat Comment: Consulting Provider: David Coombs Reason For Exam: Physician to Consult 08/23/22 23:33 Consult to Physician [CONS] Stat Comment: Consulting Provider: David Coombs Reason For Exam: Physician to Consult 08/26/22 10:15 Consult to Physician [CONS] Routine Comment: Consulting Provider: Greg Vasquez Reason For Exam: Physician to Consult COURSE Hospital Course Hospital course: Mr. Hernández is a 57 year old male with a history of hypertension, hyperlipidemia, insulin dependent diabetes mellitus complicated by neuropathy and diabetic foot wounds, prior left tibiotalar joint arthrodesis , CKD stage 3, possible seizure disorder, BARRY and obesity who was sent to [facility] ED from the ED in [place] for concern for osteomyelitis. At the [facility], the patient was noted to have a fluctuant, red and tender ulcer on the lateral aspect of his left foot. There is also a infected appearing wound top of a left toe. The patient was febrile and tachycardic in the emergency department. A CT of his left lower extremity with contrast showed changes in the left ankle arthrodesis area concerning for possible septic arthritis. The patient was started on broad-spectrum antibiotics. Hospital medicine was asked to admit the patient with orthopedic surgery consulted for operative repair. History was taken from the patient's at bedside as the patient is unable to provide a history due to altered mental status. 08/25 Yesterday evening, podiatry took the patient to the OR for a left foot I&D, left fifth metatarsal exostectomy. There was evidence of osteomyelitis of the fifth metatarsal. Specimens were sent for culture. Discussed with podiatry, Dr. Shakeel Rodriguez, who felt that he was able to remove the infected bone entirely. He does not feel like the hardware in the left ankle is involved in this infection. The patient had elevated temperatures fevers overnight however fever trend has improved since admission. Blood cultures are growing gram-positive cocci in 2 out of 2 bottles. Repeat blood cultures obtained. Transthoracic echocardiogram ordered. Renal function has slightly worsened since yesterday, the patient is beginning to develop volume overload with bilateral lower extremity edema therefore we will discontinue IV antibiotics and follow renal function. The patient likely has acute tubular necrosis secondary to sepsis. Increased Lantus and started prandial Humalog, continued Humalog SSI. The patient is alert and oriented this morning, able to engage in conversation. 08/26 Patient is on room air, patient had a high-grade temperatures and fevers overnight but significantly improved since admission. Leukocytosis has resolved. [place] blood cultures are showing no growth to date after 1 day. Awaiting antibiotic sensitivities for blood and surgical cultures which are growing staph aureus. Transthoracic echocardiogram showed a LVEF of 45 to 50%, severe concentric left ventricular hypertrophy. There was a focal nodular density on the 9 coronary cost of uncertain etiology. Renal function improving, 1 dose of Lasix IV 40 mg today. We will follow-up renal function tomorrow if it continues to improve will continue with IV Lasix for diuresis as the patient is somewhat volume overloaded from IV fluid received for sepsis at presentation. Discontinued cefepime and Flagyl, continue vancomycin IV pending antibiotic sensitivities. Infectious disease consulted. 08/27 Infectious disease consulted yesterday, recommended 6 weeks of IV antibiotics. Staff aureus cultures resulted for MSSA, discontinued vancomycin IV and started cefazolin. Thoracic echocardiogram shows a focal nodular density on the noncoronary cusp, presumably of the aortic valve however not specifically mentioned, that infectious disease feels is concerning for infectious endocarditis. Infectious disease also feels the patient needs to be on oral suppressive antibiotic therapy until the hardware is removed from the patient's left ankle. Patient's renal function continues to improve, will give 1 dose of Lasix IV today. Glucose elevated, increased Lantus to 50 units at bedtime, prandial Humalog to 18 units AC and continued correction Humalog SSIhigh dose. [place] blood culture showing no growth at 48 hours, will wait for ID to decide on timing for PICC line but could probably be placed by tomorrow if blood cultures continue to show no growth. Blood pressure elevated overnight, continuing IV as needed medications. Holding home valsartan due to CHIKA. 08/28 Patient refusing CPAP at night. Groggy in the morning per nurse. No new complaints this morning. Blood glucose still elevated will need to adjust insulin regimen. Blood pressure elevated, adjust meds 08/29 Patient states he tolerated his CPAP for three quarters of the night. Blood glucose still uncontrolled but improving. Titrate further. Blood pressure still uncontrolled but improved, continue titration. IV Lasix for lower extremity edema. 08/30 Patient states he had poor sleep last night because of noise and just difficulty sleeping. His blood glucose control is improving. Blood pressure control is slowly improving. 08/31 No overnight event or new complaints. Patient stable for discharge. Blood pressure and glucose better controlled. PICC line being placed today and then discharge. 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 (see ID note from 08/27/2022) -picc line ordered -cont home norvasc/Toprol/hydralazine(increased) -f/u with Podiatry and Orthopedic surgery for eventual hardware removal -Disposition: anticipating 6 weeks of IV antibiotics followed by indefinite oral antibiotic suppressive therapy until hardware removed from left ankle. Follow- up with orthopedic surgery as planned for probable hardware removal and revision of left tibial table joint arthrodesis. F/U with ID. Discharge diagnosis: Severe sepsis left foot cellulitis osteomyelitis infective endocarditis CHIKA Secondary discharge diagnosis: Encephalopathy he hypoxic [place]paire diabetes hypertension BARRY obesity hypothyroidism GERD Time Spent with Patient Time attestation: Total time spent providing and/or coordinating discharge services: Time spent: Greater than 30 minutes EXAM Constitutional Vitals: Temp Pulse Resp BP Pulse Ox O2 Del Method O2 Flow Rate 97.1 F 87 24 H 151/74 96 0 08/28/22 04:01 08/28/22 09:22 08/28/22 09:22 08/28/22 09:22 08/28/22 09:22 08/28/22 06:01 08/27/22 15:25 Discharge Data Data Completed and Pending Labs on day of discharge: Labs from last 24 hours 08/28/22 04:55 Sodium 137 Potassium 3.9 Chloride 97 Carbon Dioxide 24 Anion Gap 16.0 BUN 43 H Creatinine 2.0 H GFR Calculation 36 Glucose 215 H Uric Acid 6.1 Calcium 9.0 Phosphorus 4.8 H Magnesium 1.9 Total Bilirubin 0.3 Direct Bilirubin < 0.2 GGT 28 AST 30 ALT 21 Alkaline Phosphatase 98 Lactate Dehydrogenase 189 Total Protein 5.1 L Albumin 2.6 L Globulin 2.5 Albumin/Globulin Ratio 1.0 Triglycerides 282 H Preliminary micro results at discharge 08/25/22 09:48 Blood Culture - Preliminary Blood 08/25/22 09:42 Blood Culture - Preliminary Blood 08/24/22 17:15 Anaerobic Culture - Preliminary Foot - Left 08/24/22 17:15 Gram Stain - Preliminary Foot - Left Anaerobic Culture - Preliminary Discharge Plan Patient/Caregiver Discharge Instructions Activity: increase activity as tolerated Diet: Consistent Carbohydrate Activity Restrictions/Additional Instructions: f/u with ID upon discharge. [Per ID>weekly monitoring CBC, CMP, ESR, CRP while on IV abx, send labs to PCP/Podiatry/Infectious disease. Patient will need follow up echo at 6 weeks. Bone scan as outpatient. If bone scan is positive, consider debridement/removal of hardware/biopsy for culture to rule out other pathogen besides MSSA. If only MSSA, then after completion of cefazolin, can use doxycycline 100 mg po BID for suppressive therapy until hardware is removed. PICC line care while PICC line in place and d/c when finish cefazolin on 10/05/2022. Referral to see orthopedic surgery and 1 to 2 weeks for eventual hardware removal. Patient to monitor blood glucose 3 times a day before meals, keep log and bring to PCP. Monitor blood pressure twice daily, keep log, and bring to PCP. Prescriptions: New hydralazine 25 mg tablet 25 mg PO QID Qty: 120 0RF cefazolin 2 gram recon soln 2 g IV Q8H Qty: 1 0RF Continued torsemide 20 mg tablet 20 mg PO QDAY glucagon (human recombinant) 1 mg recon soln 1 mg IM PRN PRN (Reason: Hypoglycemia) allopurinol 100 mg tablet 100 mg PO BID aspirin [Adult Aspirin Regimen] 81 mg tablet,delayed release (DR/EC) 81 mg PO QDAY levothyroxine [Euthyrox] 75 mcg tablet 75 mcg PO QAM atorvastatin 20 mg tablet 20 mg PO QDAY famotidine 40 mg tablet 1 tab PO QDAY metoprolol succinate 100 mg tablet extended release 24 hr 2 tab PO QDAY magnesium oxide 400 mg (241.3 mg magnesium) tablet 1 tab PO BID Novolin 70-30 FlexPen U-100 90 units subcut TID Rx Instructions: sliding scale TID amlodipine 10 mg tablet 10 mg PO DAILY Rx Instructions: Take 1 tablet by mouth once daily valsartan 160 mg tablet 1 tab PO DAILY cholecalciferol (vitamin D3) 50 mcg (2,000 unit) Tablet 150 mcg PO QHS divalproex 500 mg tablet extended release 24 hr 500 mg PO BID Rx Instructions: Take 1 tablet by mouth twice daily duloxetine 30 mg capsule,delayed release(DR/EC) 60 mg PO QHS Rx Instructions: Take 2 capsules by mouth at HS Ozempic 1 mg/dose (2 mg/1.5 mL) Pen Injector 1 mg SUBCUT WEEKLY Rx Instructions: Subcutaneous on Sundays albuterol sulfate [Ventolin HFA] 90 mcg/actuation Hfa Aerosol Inhaler 2 puff INHALATION Q6H PRN (Reason: Shortness Of Breath) Discontinued hydralazine 10 mg tablet 10 mg PO BID Other Ambulatory Orders: [place] (ONCE) Location: None Selected Ordered By: Shakeel Rodriguez Follow Up Plan Follow up with: Andrés De La Garza MD [Primary Care Provider] - Shakeel Rodriguez DPM [Physician] - 09/04/22 9:20 am Patient Disposition: Home, Self-Care Prognosis: Fair Rehab Potential: Fair Overall status at discharge: patient is progressing back to baseline Discharge Orders: Discharge Order (Routine); Ordered 08/31/22 Ordered By: Marshall Baldwin [facility] VTE Deep Vein Thrombosis/Pulmonary Embolism Present on Admission: No
[2022-08-28] MEDS: HYDROcodone/APAP 5/325MG TABLET PO PRN ×2 (14:22→19:17)
[2022-08-28] MEDS: DULoxetine 30 MG CAPSULE PO SCH (20:38)
[2022-08-28] MEDS: INSULIN GLARGINE, HUMAN 1 UNIT/0.01 ML SQ SCH (20:51)
[2022-08-28] MEDS: SENNOSIDES 1 TABLET PO SCH (22:47)
[2022-08-29] MEDS: LABETALOL 5 MG/ML ML IV PRN ×2 (01:34→08:33)
[2022-08-29] MEDS: hydrALAZINE 20 MG/ML VIAL IV PRN ×2 (02:57→05:34)
[2022-08-29] MEDS: 0.9 % SODIUM CHLORIDE 10 ML SYRINGE IV SCH ×5 (05:34→21:01)
[2022-08-29] MEDS: ceFAZolin 1 GM VIAL IV SCH ×3 (05:34→21:00)
[2022-08-29 07:11] LABS: ALT/SGPT 19 U/L (<40); AST/SGOT 31 U/L (<40); Albumin 2.7 gm/dL (3.2-5.2); Alkaline Phosphatase 106 U/L (39-117); Bilirubin,Direct < 0.2 mg/dL (0-0.3); Bilirubin,Total 0.2 mg/dL (0.1-1.0); Blood Urea Nitrogen 45 mg/dL (6-20); Calcium 9.2 mg/dL (8.6-10.4); Carbon Dioxide 25 mmol/L (22-30); Chloride 96 mmol/L (96-108); Globulin 2.7 gm/dL (2.2-3.7); Glomerular Filtration Rate 36; Glucose 160 mg/dL (70-105); Lactate Dehydrogenase 207 U/L (135-225); Phosphorous 4.2 mg/dL (2.5-4.5); Triglycerides 290 mg/dL (<150); Uric Acid 6.5 mg/dL (2.5-8.0)
--- NOTE | 2022-08-29 08:02 | Internal Med Progress Note ---
SUBJECTIVE Subjective Patient information: Note initiated : 08/29/22 at 7:59 am Service Date, if different from initiated Date: [] Patient: Jose Alfredo Hernández 57 y/o M admitted on 08/23/22 for Left Foot Irrigation & Debridement, Exostectomy,. Chief Complaint: [] Interval history: Mr. Hernández is a 57 year old male with a history of hypertension, hyperlipidemia, insulin dependent diabetes mellitus complicated by neuropathy and diabetic foot wounds, prior left tibiotalar joint arthrodesis , CKD stage 3, possible seizure disorder, BARRY and obesity who was sent to [facility] ED from the ED in [place] for concern for osteomyelitis. At the [facility] ED, the patient was noted to have a fluctuant, red and tender ulcer on the lateral aspect of his left foot. There is also a infected appearing wound top of a left toe. The patient was febrile and tachycardic in the emergency department. A CT of his left lower extremity with contrast showed changes in the left ankle arthrodesis area concerning for possible septic arthritis. The patient was started on broad-spectrum antibiotics. Hospital medicine was asked to admit the patient with orthopedic surgery consulted for operative repair. History was taken from the patient's at bedside as the patient is unable to provide a history due to altered mental status. 08/25 Yesterday evening, podiatry took the patient to the OR for a left foot I&D, left fifth metatarsal exostectomy. There was evidence of osteomyelitis of the fifth metatarsal. Specimens were sent for culture. Discussed with podiatry, Dr. Shakeel Rodriguez, who felt that he was able to remove the infected bone entirely. He does not feel like the hardware in the left ankle is involved in this infection. The patient had elevated temperatures fevers overnight however fever trend has improved since admission. Blood cultures are growing gram-positive cocci in 2 out of 2 bottles. Repeat blood cultures obtained. Transthoracic echocardiogram ordered. Renal function has slightly worsened since yesterday, the patient is beginning to develop volume overload with bilateral lower extremity edema therefore we will discontinue IV antibiotics and follow renal function. The patient likely has acute tubular necrosis secondary to sepsis. Increased Lantus and started prandial Humalog, continued Humalog SSI. The patient is alert and oriented this morning, able to engage in conversation. 08/26 Patient is on room air, patient had a high-grade temperatures and fevers overnight but significantly improved since admission. Leukocytosis has resolved. [place] blood cultures are showing no growth to date after 1 day. Awaiting antibiotic sensitivities for blood and surgical cultures which are growing staph aureus. Transthoracic echocardiogram showed a LVEF of 45 to 50%, severe concentric left ventricular hypertrophy. There was a focal nodular density on the 9 coronary cost of uncertain etiology. Renal function improving, 1 dose of Lasix IV 40 mg today. We will follow-up renal function tomorrow if it continues to improve will continue with IV Lasix for diuresis as the patient is somewhat volume overloaded from IV fluid received for sepsis at presentation. Discontinued cefepime and Flagyl, continue vancomycin IV pending antibiotic sensitivities. Infectious disease consulted. 08/27 Infectious disease consulted yesterday, recommended 6 weeks of IV antibiotics. Staff aureus cultures resulted for MSSA, discontinued vancomycin IV and started cefazolin. Thoracic echocardiogram shows a focal nodular density on the n oncoronary cusp, presumably of the aortic valve however not specifically mentioned, that infectious disease feels is concerning for infectious endocarditis. Infectious disease also feels the patient needs to be on oral suppressive antibiotic therapy until the hardware is removed from the patient's left ankle. Patient's renal function continues to improve, will give 1 dose of Lasix IV today. Glucose elevated, increased Lantus to 50 units at bedtime, prandial Humalog to 18 units AC and continued correction Humalog SSIhigh dose. [place] blood culture showing no growth at 48 hours, will wait for ID to decide on timing for PICC line but could probably be placed by tomorrow if blood cultures continue to show no growth. Blood pressure elevated overnight, continuing IV as needed medications. Holding home valsartan due to CHIKA. 08/28 Patient refusing CPAP at night. Groggy in the morning per nurse. No new complaints this morning. Blood glucose still elevated will need to adjust insulin regimen. Blood pressure elevated, adjust meds. 08/29 Patient states he tolerated his CPAP for three quarters of the night. Blood glucose still uncontrolled but improving. Titrate further. Blood pressure still uncontrolled but improved, continue titration. IV Lasix for lower extremity edema. Review of Systems: denies headache/fever/chills/nausea/vomiting/chest or abdominal pain/cough/dyspnea/diarrhea. Otherwise see above. Constitutional Vitals: Vital Signs Temp Pulse Resp BP Pulse Ox O2 Del Method O2 Flow Rate 99.0 F 84 20 182/86 96 0 08/29/22 06:41 08/29/22 06:55 08/29/22 06:41 08/29/22 06:55 08/28/22 23:27 08/29/22 06:24 08/27/22 15:25 Period Temp Pulse Resp BP Sys/[place] Pulse Ox O2 Del Method O2 Flow Rate Last 24 Hr 97.6 F-99.0 F 77-87 16-24 140-183/66-94 92-96 CPAP-Room Air Intake and Output 08/28/22 08/29/22 08/29/22 21:59 05:59 13:59 Intake Total 500 Output Total 380 1150 450 Balance 120 -1150 -450 Intake & Output: Intake & Output 08/28/22 08/29/22 08/29/22 21:59 05:59 13:59 Intake Total 500 Output Total 380 1150 450 Balance 120 -1150 -450 Intake: Oral 500 Output: Urine Catheter Amount 450 Void Amount 380 1150 Other: Meal Dinner Percent of Meal Consumed 100% Feeding Ability Independent Urine Appearance Clear Clear Clear Urine Color Yellow Yellow Yellow Urine Odor Normal Normal Normal Exam: General: Alert, Awake, No acute Distress, obese Eyes/N/T: EOMI, Head/Neck: neck supple, CV: RRR, 3/6SM, Pulm: Clear b/l, no wheezing/rhonchi/rales Abd: soft, nontender, +BS x4 Ext: Left foot surgical incision covered with clean bandage, b/l LE 1-2+ edema L>R Neuro: Alert, no focal deficits, moves all extremities, Skin: warm/dry OBJ DATA Labs CBC & Chem 7: 08/27/22 04:56 08/29/22 05:15 Labs: Abnormal Lab Results 08/29/22 08/28/22 08/27/22 05:15 04:55 04:56 RBC Hgb Hct Immature Gran % (Auto) Lymph % (Auto) Lymph # (Auto) [place] # (Auto) Immature Gran # Carbon Dioxide 21 L BUN 45 H 43 H 35 H Creatinine 2.0 H 2.0 H 2.1 H Glucose 160 H 215 H 241 H Calcium 8.5 L Phosphorus 4.8 H Total Protein 5.4 L 5.1 L 5.2 L Albumin 2.7 L 2.6 L 2.7 L Triglycerides 290 H 282 H 317 H 08/27/22 04:56 RBC 3.72 L Hgb 11.0 L Hct 31.9 L Immature Gran % (Auto) 1.6 H Lymph % (Auto) 11.3 L Lymph # (Auto) 1.13 L [place] # (Auto) 1.17 H Immature Gran # 0.16 H Carbon Dioxide BUN Creatinine Glucose Calcium Phosphorus Total Protein Albumin Triglycerides Meds: Medications Acetaminophen (Acetaminophen 325 Mg Tablet) 650 mg PO Q6HP PRN; Protocol PRN Reason: Per Pain Protocol/Fever > 101 Last Admin: 08/24/22 12:14 Dose: 650 mg Hydrocodone Bitart/Acetaminophen (Hydrocodone/Apap 5/325mg Tablet) 1 tab PO Q4HP PRN; Protocol PRN Reason: Per Pain Protocol Last Admin: 08/28/22 19:17 Dose: 1 tab Albuterol Sulfate (Albuterol Sulfate 200 Puff Inhaler) 2 puff INH Q6HP PRN PRN Reason: Shortness Of Breath Allopurinol (Allopurinol 100 Mg Tablet) 100 mg PO BID [facility] Last Admin: 08/28/22 20:38 Dose: 100 mg Amlodipine Besylate (Amlodipine 10 Mg Tablet) 10 mg PO DAILY [facility] Last Admin: 08/28/22 08:52 Dose: 10 mg Aspirin (Aspirin 81 Mg Tab.Chew) 81 mg PO DAILY [facility] Last Admin: 08/28/22 08:52 Dose: 81 mg Atorvastatin Calcium (Atorvastatin 20 Mg Tablet) 20 mg PO QDAY [facility] Last Admin: 08/28/22 08:52 Dose: 20 mg Cefazolin Sodium (Cefazolin 1 Gm Vial) 2 gm IV Q8H [facility] Last Admin: 08/29/22 05:34 Dose: 2 gm Dextrose (Dextrose 50% 50 Ml Vial) 0 ml IV UD PRN PRN Reason: Per Sliding Scale Diagnostic Test (Pha) (Accu-Chek 1 Each Strip) 1 each FS ACHS [facility] Last Admin: 08/28/22 20:43 Dose: 1 each Divalproex Sodium (Divalproex Sodium 250 Mg Tablet) 500 mg PO BID [facility] Last Admin: 08/28/22 20:38 Dose: 500 mg Docusate Sodium (Docusate Sodium 100 Mg Capsule) 100 mg PO BID [facility] Last Admin: 08/28/22 20:38 Dose: 100 mg Duloxetine HCl (Duloxetine 30 Mg Capsule) 60 mg PO QHS [facility] Last Admin: 08/28/22 20:38 Dose: 60 mg Famotidine (Famotidine 20 Mg Tablet) 40 mg PO DAILY [facility] Last Admin: 08/28/22 08:52 Dose: 40 mg Glucose (Dextrose 31 Gm Oral.Susp) 15 gm PO PRN PRN PRN Reason: Hypoglycemia Heparin Sodium (Porcine) (Heparin 5,000 Unit/Ml Vial) 5,000 unit SQ Q12 [facility] Last Admin: 08/28/22 20:37 Dose: 5,000 unit Heparin Sodium (Porcine) (Heparin Flush 10 Units/Ml 5 Ml Syringe) 2 ml IV Q12 [facility] Last Admin: 08/28/22 21:05 Dose: Not Given Hydralazine HCl (Hydralazine 20 Mg/Ml Vial) 0 mg IV Q2HP PRN PRN Reason: Hypertension Last Admin: 08/29/22 05:34 Dose: 20 mg Hydralazine HCl (Hydralazine 10 Mg Tablet) 10 mg PO QID [facility] Last Admin: 08/28/22 20:38 Dose: 10 mg Hydromorphone HCl (Hydromorphone 0.5 Mg/0.5 Ml Syringe) 0.5 mg IV Q2HP PRN; Protocol PRN Reason: Per Pain Protocol Last Admin: 08/25/22 14:09 Dose: 0.5 mg Insulin Glargine (Insulin Glargine, Human 1 Unit/0.01 Ml) 50 unit SQ HS [facility] Last Admin: 08/28/22 20:51 Dose: 50 unit Insulin Glargine (Insulin Glargine, Human 1 Unit/0.01 Ml) 10 unit SQ DAILY [facility] Last Admin: 08/28/22 08:51 Dose: 10 units Insulin Human Lispro (Insulin Lispro 1 Unit/0.01 Ml Unit) 0 unit SQ ACHS [facility]; Protocol Last Admin: 08/28/22 20:51 Dose: 6 units Insulin Human Lispro (Insulin Lispro 1 Unit/0.01 Ml Unit) 18 unit SQ AC [facility] Last Admin: 08/28/22 17:17 Dose: 18 units Labetalol HCl (Labetalol 5 Mg/Ml Ml) 0 mg IV Q2HP PRN PRN Reason: Hypertension Last Admin: 08/29/22 01:34 Dose: 20 mg Levothyroxine Sodium (Levothyroxine 75 Mcg Tablet) 75 mcg PO QAM [facility] Last Admin: 08/28/22 08:53 Dose: 75 mcg Metoprolol Succinate (Metoprolol Succinate 50 Mg Tab.Xl.24h) 200 mg PO DAILY [facility] Last Admin: 08/28/22 08:52 Dose: 200 mg Ondansetron HCl (Ondansetron 4 Mg/2 Ml Vial) 4 mg IV Q6HP PRN PRN Reason: Nausea And Vomiting Last Admin: 08/27/22 18:03 Dose: 4 mg Polyethylene Glycol (Polyethylene Glycol 3350 17 Gm Packet) 17 gm PO DAILY [facility] Last Admin: 08/28/22 08:52 Dose: 17 gm Senna (Sennosides 1 Tablet) 2 tab PO HS [facility] Last Admin: 08/28/22 22:47 Dose: 2 tab Sodium Chloride (0.9 % Sodium Chloride 10 Ml Syringe) 10 ml IV Q8 [facility] Last Admin: 08/29/22 05:34 Dose: 10 ml Sodium Chloride (0.9 % Sodium Chloride 10 Ml Syringe) 10 ml IV UD PRN PRN Reason: FLUSH Sodium Chloride (0.9 % Sodium Chloride 10 Ml Syringe) 10 ml IV Q12 [facility] Last Admin: 08/28/22 22:30 Dose: 10 ml A/P Narrative A/P Narrative: A: #Severe sepsis: 2/2 MSSA 2/2 diabetic foot wound/osteomyelitis #Left foot cellulitis/osteomyelitis 5th MT: s/p I&D w/resection (08/24) #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 (see ID note from 08/27/2022) -Follow all blood and surgical cultures. -PICC line ordered -prn Lasix, monitor renal function, urine output and volume status. -avoid nephrotoxic meds -Lantus 50u qhs and 22qam, prandial Humalog 18 units, and SSI-high -cont home norvasc/Toprol/hydralazine(increase again) -Continue home aspirin/atorvastatin, Depakote, Cymbalta -Holding home losartan for CHIKA, and Ozempic while inpatient -Infectious disease signing off -Podiatry following -PT consult -CPAP at bedtime, refuses at atimes -prophylaxis: Heparin SQ / H2 -Disposition: Probably home when stable, anticipating 6 weeks of IV antibiotics via PICC line for staph aureus bacteremia followed by indefinite oral antibiotic suppressive therapy until hardware removed from left ankle. Follow-up with orthopedic surgery as planned for probable hardware removal and revision of left tibial table joint arthrodesis. F/U with ID. CODE STATUS: General Ophthalmologist Spent With Patient Time: Total time spent is greater than 50% in coordination of care (as documented) at patient's floor/unit and/or counseling patient: Total time spent with greater than 50% in coordination of care (as documented) at patient's floor/unit and/or counseling patient:: 25 - 35 minutes QUALITY VTE Deep Vein Thrombosis/Pulmonary Embolism Present on Admission: No
[2022-08-29] MEDS ORDERED: FUROSEMIDE 100 MG/10 ML VIAL IV ONE (08:05)
[2022-08-29] MEDS ORDERED: ALBUMIN HUMAN 12.5 GM/50 ML BAG IV ONE (08:05)
[2022-08-29] MEDS: INSULIN LISPRO 1 UNIT/0.01 ML UNIT SQ SCH ×7 (08:29→20:50)
[2022-08-29] MEDS: ASPIRIN 81 MG TAB.CHEW PO SCH (10:51)
[2022-08-29] MEDS: DOCUSATE SODIUM 100 MG CAPSULE PO SCH ×2 (10:51→20:55)
[2022-08-29] MEDS: FAMOTIDINE 20 MG TABLET PO SCH (10:52)
[2022-08-29] MEDS: METOPROLOL SUCCINATE 50 MG TAB.XL.24H PO SCH (10:52)
[2022-08-29] MEDS: hydrALAZINE 10 MG TABLET PO SCH ×4 (10:53→20:53)
[2022-08-29] MEDS: ALLOPURINOL 100 MG TABLET PO SCH ×2 (10:53→20:55)
[2022-08-29] MEDS: DIVALPROEX SODIUM 250 MG TABLET PO SCH ×2 (10:54→20:55)
[2022-08-29] MEDS: LEVOTHYROXINE 75 MCG TABLET PO SCH (10:55)
[2022-08-29] MEDS: amLODIPine 10 MG TABLET PO SCH (10:55)
[2022-08-29] MEDS: ATORVASTATIN 20 MG TABLET PO SCH (10:55)
[2022-08-29] MEDS: POLYETHYLENE GLYCOL 3350 17 GM PACKET PO SCH (11:00)
[2022-08-29] MEDS: HEPARIN 5,000 UNIT/ML VIAL SQ SCH ×2 (11:06→20:51)
[2022-08-29] MEDS: INSULIN GLARGINE, HUMAN 1 UNIT/0.01 ML SQ SCH ×2 (11:07→20:50)
[2022-08-29] MEDS: ONDANSETRON 4 MG/2 ML VIAL IV PRN (14:26)
[2022-08-29] MEDS: ACETAMINOPHEN 325 MG TABLET PO PRN (14:56)
[2022-08-29] MEDS: DULoxetine 30 MG CAPSULE PO SCH (20:54)
[2022-08-29] MEDS: SENNOSIDES 1 TABLET PO SCH (20:55)
[2022-08-29] MEDS: HYDROcodone/APAP 5/325MG TABLET PO PRN (20:59)
[2022-08-30] MEDS: 0.9 % SODIUM CHLORIDE 10 ML SYRINGE IV SCH ×5 (05:08→20:37)
[2022-08-30] MEDS: ceFAZolin 1 GM VIAL IV SCH ×3 (05:16→20:36)
[2022-08-30] MEDS: INSULIN LISPRO 1 UNIT/0.01 ML UNIT SQ SCH ×5 (07:35→20:33)
[2022-08-30] MEDS: DIVALPROEX SODIUM 250 MG TABLET PO SCH ×2 (08:29→20:32)
[2022-08-30] MEDS: hydrALAZINE 10 MG TABLET PO SCH ×4 (08:30→20:30)
[2022-08-30] MEDS: ATORVASTATIN 20 MG TABLET PO SCH (08:30)
[2022-08-30] MEDS: LEVOTHYROXINE 75 MCG TABLET PO SCH (08:31)
[2022-08-30] MEDS: FAMOTIDINE 20 MG TABLET PO SCH (08:31)
[2022-08-30] MEDS: DOCUSATE SODIUM 100 MG CAPSULE PO SCH ×2 (08:32→20:31)
[2022-08-30] MEDS: ALLOPURINOL 100 MG TABLET PO SCH ×2 (08:32→20:32)
[2022-08-30] MEDS: METOPROLOL SUCCINATE 50 MG TAB.XL.24H PO SCH (08:32)
[2022-08-30] MEDS: amLODIPine 10 MG TABLET PO SCH (08:32)
[2022-08-30] MEDS: ASPIRIN 81 MG TAB.CHEW PO SCH (08:33)
[2022-08-30] MEDS: POLYETHYLENE GLYCOL 3350 17 GM PACKET PO SCH (08:34)
[2022-08-30] MEDS: INSULIN GLARGINE, HUMAN 1 UNIT/0.01 ML SQ SCH ×2 (08:34→20:32)
[2022-08-30] MEDS: HEPARIN 5,000 UNIT/ML VIAL SQ SCH ×2 (08:35→20:33)
[2022-08-30] MEDS: LABETALOL 5 MG/ML ML IV PRN ×2 (08:37→17:11)
--- NOTE | 2022-08-30 09:17 | Internal Med Progress Note ---
SUBJECTIVE Subjective Patient information: Note initiated : 08/30/22 at 9:15 am Service Date, if different from initiated Date: [] Patient: Jose lAfredo Hernández 57 y/o M admitted on 08/23/22 for Left Foot Irrigation & Debridement, Exostectomy,. Chief Complaint: [] Interval history: Mr. Hernández is a 57 year old male with a history of hypertension, hyperlipidemia, insulin dependent diabetes mellitus complicated by neuropathy and diabetic foot wounds, prior left tibiotalar joint arthrodesis , CKD stage 3, possible seizure disorder, BARRY and obesity who was sent to [facility] ED from the ED in [place] for concern for osteomyelitis. At the [facility] ED, the patient was noted to have a fluctuant, red and tender ulcer on the lateral aspect of his left foot. There is also a infected appearing wound top of a left toe. The patient was febrile and tachycardic in the emergency department. A CT of his left lower extremity with contrast showed changes in the left ankle arthrodesis area concerning for possible septic arthritis. The patient was started on broad-spectrum antibiotics. Hospital medicine was asked to admit the patient with orthopedic surgery consulted for operative repair. History was taken from the patient's at bedside as the patient is unable to provide a history due to altered mental status. 08/25 Yesterday evening, podiatry took the patient to the OR for a left foot I&D, left fifth metatarsal exostectomy. There was evidence of osteomyelitis of the fifth metatarsal. Specimens were sent for culture. Discussed with podiatry, Dr. Shakeel Rodriguez, who felt that he was able to remove the infected bone entirely. He does not feel like the hardware in the left ankle is involved in this infection. The patient had elevated temperatures fevers overnight however fever trend has improved since admission. Blood cultures are growing gram-positive cocci in 2 out of 2 bottles. Repeat blood cultures obtained. Transthoracic echocardiogram ordered. Renal function has slightly worsened since yesterday, the patient is beginning to develop volume overload with bilateral lower extremity edema therefore we will discontinue IV antibiotics and follow renal function. The patient likely has acute tubular necrosis secondary to sepsis. Increased Lantus and started prandial Humalog, continued Humalog SSI. The patient is alert and oriented this morning, able to engage in conversation. 08/26 Patient is on room air, patient had a high-grade temperatures and fevers overnight but significantly improved since admission. Leukocytosis has resolved. [place] blood cultures are showing no growth to date after 1 day. Awaiting antibiotic sensitivities for blood and surgical cultures which are growing staph aureus. Transthoracic echocardiogram showed a LVEF of 45 to 50%, severe concentric left ventricular hypertrophy. There was a focal nodular density on the 9 coronary cost of uncertain etiology. Renal function improving, 1 dose of Lasix IV 40 mg today. We will follow-up renal function tomorrow if it continues to improve will continue with IV Lasix for diuresis as the patient is somewhat volume overloaded from IV fluid received for sepsis at presentation. Discontinued cefepime and Flagyl, continue vancomycin IV pending antibiotic sensitivities. Infectious disease consulted. 08/27 Infectious disease consulted yesterday, recommended 6 weeks of IV antibiotics. Staff aureus cultures resulted for MSSA, discontinued vancomycin IV and started cefazolin. Thoracic echocardiogram shows a focal nodular density on the n oncoronary cusp, presumably of the aortic valve however not specifically mentioned, that infectious disease feels is concerning for infectious endocarditis. Infectious disease also feels the patient needs to be on oral suppressive antibiotic therapy until the hardware is removed from the patient's left ankle. Patient's renal function continues to improve, will give 1 dose of Lasix IV today. Glucose elevated, increased Lantus to 50 units at bedtime, prandial Humalog to 18 units AC and continued correction Humalog SSIhigh dose. [place] blood culture showing no growth at 48 hours, will wait for ID to decide on timing for PICC line but could probably be placed by tomorrow if blood cultures continue to show no growth. Blood pressure elevated overnight, continuing IV as needed medications. Holding home valsartan due to CHIKA. 08/28 Patient refusing CPAP at night. Groggy in the morning per nurse. No new complaints this morning. Blood glucose still elevated will need to adjust insulin regimen. Blood pressure elevated, adjust meds. 08/29 Patient states he tolerated his CPAP for three quarters of the night. Blood glucose still uncontrolled but improving. Titrate further. Blood pressure still uncontrolled but improved, continue titration. IV Lasix for lower extremity edema. 09/01 Patient states he had poor sleep last night because of noise and just difficulty sleeping. His blood glucose control is improving. Blood pressure control is slowly improving. Review of Systems: denies headache/fever/chills/nausea/vomiting/chest or abdominal pain/cough/dyspnea/diarrhea. Otherwise see above. Constitutional Vitals: Vital Signs Temp Pulse Resp BP Pulse Ox O2 Del Method O2 Flow Rate 98.8 F 77 20 180/92 94 0 08/30/22 07:30 08/30/22 07:30 08/30/22 08:00 08/30/22 07:30 08/30/22 08:00 08/30/22 08:00 08/27/22 15:25 Period Temp Pulse Resp BP Sys/[place] Pulse Ox O2 Del Method O2 Flow Rate Last 24 Hr 98.2 F-98.8 F 77-80 15-20 141-180/64-92 92-96 Room Air-Room Air Intake and Output 08/29/22 08/30/22 08/30/22 21:59 05:59 13:59 Intake Total 900 750 425 Output Total 1450 1250 675 Balance -550 -500 -250 Weight 133.492 kg Intake & Output: Intake & Output 08/29/22 08/30/22 08/30/22 21:59 05:59 13:59 Intake Total 900 750 425 Output Total 1450 1250 675 Balance -550 -500 -250 Weight 133.492 kg Intake: Oral 900 425 GI Tube Flush 750 Output: Void Amount 1450 1250 675 Other: Meal Dinner Percent of Meal Consumed 75% Feeding Ability Independent Urine Appearance Clear Clear Clear Urine Color Yellow Yellow Yellow Urine Odor Normal Normal Stool Size Moderate Stool Color Brown Stool Consistency Normal for Patient # Unmeasured Emesis 1 Exam: General: Alert, Awake, No acute Distress, obese Eyes/N/T: EOMI, Head/Neck: neck supple, CV: RRR, 3/6SM, Pulm: Clear b/l, no wheezing/rhonchi/rales Abd: soft, nontender, +BS x4 Ext: Left foot surgical incision covered with clean bandage, b/l LE 1-2+ edema L>R Neuro: Alert, no focal deficits, moves all extremities, Skin: warm/dry OBJ DATA Labs CBC & Chem 7: 08/27/22 04:56 08/29/22 05:15 Labs: Abnormal Lab Results 08/29/22 08/28/22 05:15 04:55 BUN 45 H 43 H Creatinine 2.0 H 2.0 H Glucose 160 H 215 H Phosphorus 4.8 H Total Protein 5.4 L 5.1 L Albumin 2.7 L 2.6 L Triglycerides 290 H 282 H Meds: Medications Acetaminophen (Acetaminophen 325 Mg Tablet) 650 mg PO Q6HP PRN; Protocol PRN Reason: Per Pain Protocol/Fever > 101 Last Admin: 08/29/22 14:56 Dose: 650 mg Hydrocodone Bitart/Acetaminophen (Hydrocodone/Apap 5/325mg Tablet) 1 tab PO Q4HP PRN; Protocol PRN Reason: Per Pain Protocol Last Admin: 08/29/22 20:59 Dose: 1 tab Albuterol Sulfate (Albuterol Sulfate 200 Puff Inhaler) 2 puff INH Q6HP PRN PRN Reason: Shortness Of Breath Allopurinol (Allopurinol 100 Mg Tablet) 100 mg PO BID [facility] Last Admin: 08/30/22 08:32 Dose: 100 mg Amlodipine Besylate (Amlodipine 10 Mg Tablet) 10 mg PO DAILY [facility] Last Admin: 08/30/22 08:32 Dose: 10 mg Aspirin (Aspirin 81 Mg Tab.Chew) 81 mg PO DAILY [facility] Last Admin: 08/30/22 08:33 Dose: 81 mg Atorvastatin Calcium (Atorvastatin 20 Mg Tablet) 20 mg PO QDAY [facility] Last Admin: 08/30/22 08:30 Dose: 20 mg Cefazolin Sodium (Cefazolin 1 Gm Vial) 2 gm IV Q8H [facility] Last Admin: 08/30/22 05:16 Dose: 2 gm Dextrose (Dextrose 50% 50 Ml Vial) 0 ml IV UD PRN PRN Reason: Per Sliding Scale Diagnostic Test (Pha) (Accu-Chek 1 Each Strip) 1 each FS ACHS [facility] Last Admin: 08/30/22 07:32 Dose: 1 each Divalproex Sodium (Divalproex Sodium 250 Mg Tablet) 500 mg PO BID [facility] Last Admin: 08/30/22 08:29 Dose: 500 mg Docusate Sodium (Docusate Sodium 100 Mg Capsule) 100 mg PO BID [facility] Last Admin: 08/30/22 08:32 Dose: 100 mg Duloxetine HCl (Duloxetine 30 Mg Capsule) 60 mg PO QHS [facility] Last Admin: 08/29/22 20:54 Dose: 60 mg Famotidine (Famotidine 20 Mg Tablet) 40 mg PO DAILY [facility] Last Admin: 08/30/22 08:31 Dose: 40 mg Glucose (Dextrose 31 Gm Oral.Susp) 15 gm PO PRN PRN PRN Reason: Hypoglycemia Heparin Sodium (Porcine) (Heparin 5,000 Unit/Ml Vial) 5,000 unit SQ Q12 [facility] Last Admin: 08/30/22 08:35 Dose: 5,000 unit Heparin Sodium (Porcine) (Heparin Flush 10 Units/Ml 5 Ml Syringe) 2 ml IV Q12 [facility] Last Admin: 08/30/22 08:34 Dose: Not Given Hydralazine HCl (Hydralazine 20 Mg/Ml Vial) 0 mg IV Q2HP PRN PRN Reason: Hypertension Last Admin: 08/29/22 05:34 Dose: 20 mg Hydralazine HCl (Hydralazine 10 Mg Tablet) 25 mg PO QID [facility] Last Admin: 08/30/22 08:30 Dose: 25 mg Hydromorphone HCl (Hydromorphone 0.5 Mg/0.5 Ml Syringe) 0.5 mg IV Q2HP PRN; Protocol PRN Reason: Per Pain Protocol Last Admin: 08/25/22 14:09 Dose: 0.5 mg Insulin Glargine (Insulin Glargine, Human 1 Unit/0.01 Ml) 50 unit SQ HS [facility] Last Admin: 08/29/22 20:50 Dose: 50 unit Insulin Glargine (Insulin Glargine, Human 1 Unit/0.01 Ml) 22 unit SQ DAILY [facility] Last Admin: 08/30/22 08:34 Dose: 22 units Insulin Human Lispro (Insulin Lispro 1 Unit/0.01 Ml Unit) 0 unit SQ ACHS [facility]; Protocol Last Admin: 08/30/22 07:35 Dose: Not Given Insulin Human Lispro (Insulin Lispro 1 Unit/0.01 Ml Unit) 18 unit SQ AC [facility] Last Admin: 08/30/22 07:37 Dose: Not Given Labetalol HCl (Labetalol 5 Mg/Ml Ml) 0 mg IV Q2HP PRN PRN Reason: Hypertension Last Admin: 08/30/22 08:37 Dose: 20 mg Levothyroxine Sodium (Levothyroxine 75 Mcg Tablet) 75 mcg PO QAM [facility] Last Admin: 08/30/22 08:31 Dose: 75 mcg Metoprolol Succinate (Metoprolol Succinate 50 Mg Tab.Xl.24h) 200 mg PO DAILY [facility] Last Admin: 08/30/22 08:32 Dose: 200 mg Ondansetron HCl (Ondansetron 4 Mg/2 Ml Vial) 4 mg IV Q6HP PRN PRN Reason: Nausea And Vomiting Last Admin: 08/29/22 14:26 Dose: 4 mg Polyethylene Glycol (Polyethylene Glycol 3350 17 Gm Packet) 17 gm PO DAILY [facility] Last Admin: 08/30/22 08:34 Dose: 17 gm Senna (Sennosides 1 Tablet) 2 tab PO HS [facility] Last Admin: 08/29/22 20:55 Dose: 2 tab Sodium Chloride (0.9 % Sodium Chloride 10 Ml Syringe) 10 ml IV Q8 [facility] Last Admin: 08/30/22 05:08 Dose: 10 ml Sodium Chloride (0.9 % Sodium Chloride 10 Ml Syringe) 10 ml IV UD PRN PRN Reason: FLUSH Sodium Chloride (0.9 % Sodium Chloride 10 Ml Syringe) 10 ml IV Q12 [facility] Last Admin: 08/30/22 08:36 Dose: 10 ml A/P Narrative A/P Narrative: A: #Severe sepsis: 2/2 MSSA 2/2 diabetic foot wound/osteomyelitis #Left foot cellulitis/osteomyelitis 5th MT: s/p I&D w/resection (08/24) #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 (see ID note from 08/27/2022) -PICC line ordered -prn Lasix, monitor renal function, urine output and volume status -avoid nephrotoxic meds -Lantus 50u qhs and 25qam,and SSI-high -cont home norvasc/Toprol/hydralazine(increased) -Holding home losartan for CHIKA, and Ozempic while inpatient -Continue home aspirin/atorvastatin, Depakote, Cymbalta -Infectious disease signing off, Podiatry following -PT consult -CPAP at bedtime, refuses at times -prophylaxis: Heparin SQ / H2 -Disposition: Probably home when stable, anticipating 6 weeks of IV antibiotics via PICC line for staph aureus bacteremia followed by indefinite oral antibiotic suppressive therapy until hardware removed from left ankle. Follow-up with orthopedic surgery as planned for probable hardware removal and revision of left tibial table joint arthrodesis. F/U with ID. CODE STATUS: [employer] Spent With Patient Time: Total time spent is greater than 50% in coordination of care (as documented) at patient's floor/unit and/or counseling patient: Total time spent with greater than 50% in coordination of care (as documented) at patient's floor/unit and/or counseling patient:: 25 - 35 minutes QUALITY VTE Deep Vein Thrombosis/Pulmonary Embolism Present on Admission: No
[2022-08-30] MEDS ORDERED: INSULIN GLARGINE, HUMAN 1 UNIT/0.01 ML SQ SCH (10:00)
[2022-08-30] MEDS ORDERED: FUROSEMIDE 40 MG/4 ML VIAL IV SCH (10:20)
[2022-08-30] MEDS ORDERED: ALBUMIN HUMAN 12.5 GM/50 ML BAG IV SCH (10:20)
[2022-08-30] MEDS ORDERED: HYDROCHLOROTHIAZIDE 25 MG TABLET PO SCH (10:25)
[2022-08-30] MEDS ORDERED: diphenhydrAMINE 25 MG CAPSULE PO SCH (10:30)
[2022-08-30] MEDS: HYDROcodone/APAP 5/325MG TABLET PO PRN (20:28)
[2022-08-30] MEDS: DULoxetine 30 MG CAPSULE PO SCH (20:29)
[2022-08-30] MEDS: MELATONIN 3 MG TABLET PO SCH (20:31)
[2022-08-30] MEDS: SENNOSIDES 1 TABLET PO SCH (20:31)
[2022-08-31] MEDS: ceFAZolin 1 GM VIAL IV SCH ×3 (05:10→21:05)
[2022-08-31] MEDS: 0.9 % SODIUM CHLORIDE 10 ML SYRINGE IV SCH ×5 (05:10→20:36)
[2022-08-31] MEDS: INSULIN LISPRO 1 UNIT/0.01 ML UNIT SQ SCH ×4 (07:26→20:36)
[2022-08-31] MEDS: LEVOTHYROXINE 75 MCG TABLET PO SCH (07:35)
[2022-08-31] MEDS: ATORVASTATIN 20 MG TABLET PO SCH (08:45)
[2022-08-31] MEDS: DIVALPROEX SODIUM 250 MG TABLET PO SCH ×2 (08:45→20:06)
[2022-08-31] MEDS: amLODIPine 10 MG TABLET PO SCH (08:45)
[2022-08-31] MEDS: DOCUSATE SODIUM 100 MG CAPSULE PO SCH ×2 (08:47→20:07)
[2022-08-31] MEDS: FAMOTIDINE 20 MG TABLET PO SCH (08:47)
[2022-08-31] MEDS: ALLOPURINOL 100 MG TABLET PO SCH ×2 (08:47→20:07)
[2022-08-31] MEDS: hydrALAZINE 10 MG TABLET PO SCH ×4 (08:48→20:07)
[2022-08-31] MEDS: ASPIRIN 81 MG TAB.CHEW PO SCH (08:48)
[2022-08-31] MEDS: METOPROLOL SUCCINATE 50 MG TAB.XL.24H PO SCH (08:48)
[2022-08-31] MEDS: HEPARIN 5,000 UNIT/ML VIAL SQ SCH ×2 (08:49→20:06)
[2022-08-31] MEDS: POLYETHYLENE GLYCOL 3350 17 GM PACKET PO SCH (08:49)
[2022-08-31] MEDS ORDERED: INSULIN GLARGINE, HUMAN 1 UNIT/0.01 ML SQ SCH ×2 (09:00)
--- NOTE | 2022-08-31 16:20 | XRay Report ---
INDICATION: PICC PLACEMENT TECHNIQUE: AP portable semiupright chest x-ray COMPARISON: Previous examination dated 08/24/2022 FINDINGS: Interval placement of right-sided PICC line. PICC line is in the right atrium near the junction of the inferior vena cava. This could be pulled back approximately 6 cm. IMPRESSION: Right-sided PICC line as above Interpreted and Authenticated by: David Schneider 08/31/22
[2022-08-31] MEDS: HYDROcodone/APAP 5/325MG TABLET PO PRN (18:22)
[2022-08-31] MEDS: SENNOSIDES 1 TABLET PO SCH (20:06)
[2022-08-31] MEDS: DULoxetine 30 MG CAPSULE PO SCH (20:07)
[2022-08-31] MEDS: INSULIN GLARGINE, HUMAN 1 UNIT/0.01 ML SQ SCH (20:35)
[2022-08-31] MEDS: MELATONIN 3 MG TABLET PO SCH (20:37)
== END 2022-08-31 21:20 | disposition home or self-care (01) | DRG 853 ==
LOC: ED 15:59 → MEDSUR 23:29 → ICU 08-24 10:37 → MEDSUR 08-28 13:41
PROVIDERS: ADMIT Internal Medicine; ATTEND Internal Medicine